=== PATIENT | female | born 1970 | race Caucasian/White ===

== ENCOUNTER 2018-08-12 20:18 | Inpatient (IN) ==
--- NOTE | 2018-08-12 21:57 | ED ---
HPI General Chief complaint: Fall Stated complaint: fall 3 weeks ago-weakness Time Seen by Provider: 08/12/18 21:26 History of Present Illness HPI narrative: 48-year-old female with a history of alcohol abuse presents to the emergency department for evaluation of headache, neck pain, paresthesias and weakness s/p fall 3 weeks ago. Much of the history is provided by the patient's because the patient states that her memory has declined over the past several weeks. The patient's states that 3 weeks ago the patient called him and told him that she tripped over the dog in the backyard and fell hitting the back of her head on the ground, which was grasped. He states that at the time she told him that she had some soreness in her back but otherwise was okay. He states that since then she has started complaining of pain in the back of her head and neck and over the past 2 weeks has started having weakness and paresthesias. He states that for the past 2 weeks she has had difficulty getting up off of the couch due to weakness in her legs, states that he has been picking her up and taking her to the bathroom. The patient is complaining of pain in her head and neck. She is also complaining of paresthesias from the elbows to fingertips bilaterally and from below her knees to her toes bilaterally. States that she has nausea but no vomiting. Denies any fever, chills, chest pain, shortness of breath, abdominal pain, vomiting, diarrhea, cough or cold symptoms, bowel or bladder incontinence. Patient admits to drinking 3 large vodka drinks daily. Denies any drug use. No other complaints. Related Data Home Medications Medication Instructions Recorded Confirmed lisinopril 20 mg PO DAILY 08/12/18 08/12/18 Allergies Allergy/AdvReac Type Severity Reaction Status Date / Time acetaminophen Allergy Severe Rash Verified 08/12/18 21:13 doxycycline Allergy Severe Rash Verified 08/12/18 21:13 minocycline Allergy Severe Rash Verified 08/12/18 21:13 morphine Allergy Severe HIVES Verified 08/12/18 21:13 ondansetron Allergy Severe HIVES Verified 08/12/18 21:13 penicillin G Allergy Severe Rash Verified 08/12/18 21:13 propoxyphene Allergy Severe Rash Verified 08/12/18 21:13 tigecycline Allergy Severe Rash Verified 08/12/18 21:13 Sulfa (Sulfonamide Allergy Unknown Nausea/Vomi Verified 08/12/18 21:13 Antibiotics) ting gadobutrol [From Gadavist] Allergy Hives Verified 08/13/18 12:20 Review of Systems ROS: all other systems reviewed are negative [facility] Family History Family History Mother Cancer Father Diabetes Social History Social History Substance History: Active Abuse Second Hand Smoke Exposure: No Smoking Status: Never smoker How Often Do You Have a Drink Containing Alcohol: 4 or more times a week Recent Travel in [facility] within the Last 8 Weeks: No Recent Out of Country Travel within the Last 8 Weeks: No Substance Abuse Detail Alcohol: Substance Use Status: Active Route Used Substance Abuse: By Mouth Substance Frequency: 1/2 gallon every couple days Substance Abuse Comment: for pain control Immunization History Tetanus Immunization: <5 Years Exam Narrative Exam Narrative: GENERAL: Well-nourished and well-developed female patient in no acute distress, tearful and anxious. SKIN: Warm and dry without any obvious rashes or lesions. HEAD: Normocephalic and atraumatic. EYES: No injection, drainage, or hyphema noted. PERRLA. EOMI. ENT: No nasal drainage noted. Oropharynx is clear. NECK: Supple and the trachea is midline. CARDIOVASCULAR: Regular rate and rhythm. RESPIRATORY: Breath sounds are equal bilaterally with no accessory muscle use, wheezing, rhonchi, or crackles. GASTROINTESTINAL: Abdomen is soft, non-tender, and nondistended. RECTAL EXAM: External hemorrhoids noted. No masses or tenderness. No stool in the rectal vault. Normal rectal tone. Performed in the presence of Katina CROWE. MUSCULOSKELETAL: No obvious deformities, swelling, cyanosis, or ecchymosis is present throughout the upper and lower extremities. Patient has full range of motion without any signs of neurovascular compromise. Distal pulses are 2+ throughout. Patient strength 4/5 upper and lower extremities and equal throughout. BACK: Nontender without any obvious deformities, bony point tenderness, or crepitus noted throughout the thoracic and lumbar vertebrae. NEUROLOGICAL: Awake, alert, and oriented to person and place only. Normal speech. Cranial nerves are grossly intact. Course Initial Documented Vital Signs Temperature 98.4 F 08/12/18 20:51 Pulse Rate 119 H 08/12/18 20:51 Respiratory Rate 16 08/12/18 20:51 Blood Pressure 110/71 08/12/18 20:51 Pulse Oximetry 100 08/12/18 20:51 Last Documented Vital Signs Temperature 98.8 F 08/17/18 16:00 Pulse Rate 88 08/17/18 16:00 Respiratory Rate 18 08/17/18 16:00 Blood Pressure 135/86 08/17/18 16:00 Pulse Oximetry 99 08/17/18 16:00 Medical Decision Making CORINNA Attestation CORINNA supervised visit: Yes Attestation: I, Dr. Hayden, have reviewed the advance practice practitioner's documentation and am in agreement, met with the patient face to face, made the diagnosis, and the medical decision making was done by me. The patient was initially evaluated by Kathy, the CORINNA. Please see their complete history and physical. *My assessment and Findings: The patient presents with a history of generalized weakness, numbness and tingling in the arms and legs in a stocking and glove distribution that began a couple of weeks ago. During the course of the patient's emergency department visit, the patient's history, examination, and differential diagnosis were reviewed with the patient. The patient was placed on a fiscal assistant with oximetry and frequent blood pressure monitoring. The patient had IV access obtained and blood work sent for analysis. The patient's diagnostic studies were reviewed and remarkable for a white count of 12.4, hemoglobin 6.7 with Hemoccult negative stool on rectal exam, platelets 518 with a normal differential, PT 9.6, PTT 22.4, urinalysis shows no acute abnormality. CT scan of the brain showed no acute abnormality, CT scan of the C -spine showed no fracture or subluxation of the cervical spine, mild degenerative changes at C5-C6. The patient's case including history, pertinent physical examination findings, and laboratory studies were discussed with Dr. Miller. It was agreed that the patient would be admitted to the hospitalist service. The patient's results were discussed with the patient, including the plan of care. I explained that further testing and/ or monitoring is indicated based on the patient's history, examination, and/ or laboratory findings. Therefore, I recommended admission for additional evaluation. The patient expressed understanding and was agreeable with this plan. The patient was admitted to the hospital in guarded condition and sent to a bed under the care of the [facility] service. MDM Narrative Medical decision making narrative: 48-year-old female presents to the emergency department for evaluation of headache, neck pain, weakness and paresthesias status post trip and fall 3 weeks ago. Patient is afebrile. She is slightly tachycardic but otherwise vitals are unremarkable. IV access is obtained, labs of been drawn and sent. Patient is placed on cardiac telemetry and pulse oximetry monitoring. CBC shows hemoglobin 6.7, hematocrit 21.1. Platelet count is elevated at 518. White blood cell count is elevated 12.4. Coags unremarkable. Head CT is negative. CT of the cervical spine is negative. Urinalysis shows small occult blood but is otherwise unremarkable. TSH is elevated at 5.170. EtOH is elevated at 203. Urine tox is negative. CBC shows anemia, patient's reporting she had bright red blood in the toilet several times this week due to hemorrhoids. Denies any black stools. I did a [place] to try to perform hemaprompt however she had no stool in the rectal vault to test. She does have external hemorrhoids noted on exam. Patient will be administered 2 units prbcs. Patient will be admitted to hospitalist service. Medical Screen Exam Complete: Yes Emergency Medical Condition: Yes Differential Diagnosis Differential Diagnosis: Intracranial hemorrhage versus alcohol intoxication versus delirium versus electrolyte abnormality versus thiamine deficiency Lab Data Result diagrams: 08/15/18 06:17 08/17/18 05:33 Lab Results 08/12/18 08/12/18 08/12/18 Range/Units 21:53 21:53 21:53 WBC 12.4 H (4.0-11.0) th/mm3 Corrected WBC RBC 2.79 L (4.00-5.30) mil/mm3 Hgb 6.7 L* (11.6-15.3) gm/dL Hct 21.1 L (35.0-46.0) % MCV 75.6 L (80.0-100.0) fL MCH 24.1 L (27.0-34.0) pg MCHC 31.9 L (32.0-36.0) % RDW 21.0 H (11.6-17.2) % Plt Count 518 H (150-450) th/mm3 MPV 8.8 (7.0-11.0) fL Prelim Diff (Auto) Neut % (Auto) 55.0 (16.0-70.0) % Lymph % (Auto) 34.0 (9.0-44.0) % [place] % (Auto) 7.8 (0.0-8.0) % Eos % (Auto) 1.9 (0.0-4.0) % Baso % (Auto) 1.3 (0.0-2.0) % Neut # (Auto) 6.8 (1.8-7.7) th/mm3 Lymph # (Auto) 4.2 (1.0-4.8) th/mm3 [place] # (Auto) 1.0 H (0.0-0.9) th/mm3 Eos # (Auto) 0.2 (0.0-0.4) th/mm3 Baso # (Auto) 0.2 (0.0-0.2) th/mm3 WBC Differential . Differential Comment Auto diff final ESR (0-20) mm/hr Hematology Comments PT 9.6 L (9.8-11.6) sec INR 0.9 Ratio APTT 22.4 L (23.4-31.7) sec Sodium (136-145) meq/L Potassium (3.5-5.1) meq/L Chloride (98-107) meq/L Carbon Dioxide (21.0-32.0) meq/L Anion Gap (5-15) meq/L BUN (7-18) mg/dL Creatinine (0.50-1.00) mg/dL Estimated GFR (>89) mL/min Random Glucose (74-106) mg/dL Calcium (8.5-10.1) mg/dL Phosphorus (2.5-4.9) mg/dL Magnesium (1.5-2.5) mg/dL Iron (50-170) mcg/dL TIBC (250-450) mcg/dL % Saturation (20-50) % Ferritin (8-252) ng/mL Total Bilirubin (0.2-1.0) mg/dL AST (15-37) U/L ALT (10-53) U/L Alkaline Phosphatase (45-117) U/L Ammonia (11-32) mcmol/L Total Creatine Kinase (26-192) U/L Troponin I (0.02-0.05) ng/mL Total Protein (6.4-8.2) g/dL Total Protein (PEP) (6.4-8.2) gm/dL Albumin (3.4-5.0) g/dL Albumin (PEP) (3.50-5.00) gm/dL Albumin/Globulin Ratio (1.39-2.23) Dbpat-1-Vidxgvket (0.11-0.29) gm/dL Wnfgw-1-Knrqqowae (0.22-1.00) gm/dL Beta Globulins (0.53-1.03) gm/dL Gamma Globulins (0.50-1.39) gm/dL PEP Pathologist Comment Ceruloplasmin (18-53) mg/dL Thiamine (70-180) nmol/L Vitamin B12 (193-986) pg/mL Methylmalonic Acid (<=0.40) nmol/mL Folate (3.1-17.5) ng/mL TSH 5.170 H (0.358-3.740) uIU/mL Free T4 (0.76-1.46) ng/dL Beta HCG, Quant (0-5) mIU/mL Urine Color (Yellw/Straw) Urine Clarity (Clear) Urine pH (5.0-8.5) Ur Specific [place] (1.002-1.035) Urine Protein (Neg-Trace) mg/dL Urine Glucose (UA) (Negative) mg/dL Urine Ketones (Negative) mg/dL Urine Occult Blood (Negative) Urine Nitrate (Negative) Urine Bilirubin (Negative) Urine Urobilinogen (Less than 2) mg/dL Ur Leukocyte Esterase (Negative) Urine RBC (0-3) /hpf Urine WBC (0-5) /hpf Ur Squamous Epith Cells (0-5) /hpf Urine Bacteria (None) /hpf Micro UA Comment Ur Microscopic Review Urine Culture Comments CSF Volume (1) mL CSF Supernat Color (1) (Clear) CSF Gross Blood (1) (0) CSF WBC (1) (0-10) /mm3 CSF RBC (1) (None) /mm3 CSF Volume (2) mL CSF Supernat Color (2) (Clear) CSF Gross Blood (2) (0) CSF Volume (3) mL CSF Supernat Color (3) (Clear) CSF Gross Blood (3) (0) CSF Volume (4) mL CSF Supernat Color (4) (Clear) CSF Gross Blood (4) (0) CSF Neutrophils % % CSF Lymphocytes % % CSF Monocytes % % CSF Histiocytes % CSF Total Protein (15.0-45.0) mg/dL CSF VDRL CSF Lyme IgG Bands Det CSF Lyme IgM Bands Det CSF Lyme Disease DNA (Not Detecte) CSF Cryptococcus Ag (Negative) CSF Herpes I DNA (PCR) (Negative) CSF Herpes II DNA (PCR) (Negative) Urine Opiates Screen (Neg) Ur Barbiturates Screen (Neg) Ur Amphetamines Screen (Neg) U Benzodiazepines Scrn (Neg) Urine Cocaine Screen (Neg) U Cannabinoids Screen (Neg) Serum Alcohol 203 H (0-5) mg/dL Zinc (60-130) mcg/dL IgG (670-1640) mg/dL IgA (78-430) mg/dL IgM (55-338) mg/dL IgE (<= 214) kU/L Rheumatoid Factor Scrn (Negative) Rheumatoid Factor Titer CHAVEZ Screen (Neg) RPR (Nonreactive) Hepatitis A IgM Ab (Nonreactive) Hep Bs Antigen (Nonreactive) Hep B Core IgM Ab (Nonreactive) Hep C IgG Ab (Nonreactive) HIV 1&2 Ab/P24 Ag 4thGn (Nonreactive) M. pneumoniae Interp Mycoplasma pneumon IgG (Negative) Mycoplasma pneumon IgM (Negative) Blood Type Blood Type Recheck Antibody Screen MTS Gel Crossmatch 08/12/18 08/12/18 08/12/18 Range/Units 21:53 21:53 21:53 WBC (4.0-11.0) th/mm3 Corrected WBC RBC (4.00-5.30) mil/mm3 Hgb (11.6-15.3) gm/dL Hct (35.0-46.0) % MCV (80.0-100.0) fL MCH (27.0-34.0) pg MCHC (32.0-36.0) % RDW (11.6-17.2) % Plt Count (150-450) th/mm3 MPV (7.0-11.0) fL Prelim Diff (Auto) Neut % (Auto) (16.0-70.0) % Lymph % (Auto) (9.0-44.0) % [place] % (Auto) (0.0-8.0) % Eos % (Auto) (0.0-4.0) % Baso % (Auto) (0.0-2.0) % Neut # (Auto) (1.8-7.7) th/mm3 Lymph # (Auto) (1.0-4.8) th/mm3 [place] # (Auto) (0.0-0.9) th/mm3 Eos # (Auto) (0.0-0.4) th/mm3 Baso # (Auto) (0.0-0.2) th/mm3 WBC Differential Differential Comment ESR (0-20) mm/hr Hematology Comments PT (9.8-11.6) sec INR Ratio APTT (23.4-31.7) sec Sodium 141 (136-145) meq/L Potassium 3.5 (3.5-5.1) meq/L Chloride 106 (98-107) meq/L Carbon Dioxide 21.8 (21.0-32.0) meq/L Anion Gap 13 (5-15) meq/L BUN 13 (7-18) mg/dL Creatinine 0.77 (0.50-1.00) mg/dL Estimated GFR 80 L (>89) mL/min Random Glucose 100 (74-106) mg/dL Calcium 8.9 (8.5-10.1) mg/dL Phosphorus (2.5-4.9) mg/dL Magnesium 2.0 (1.5-2.5) mg/dL Iron 11 L (50-170) mcg/dL TIBC 643 H (250-450) mcg/dL % Saturation 1.7 L (20-50) % Ferritin 8 (8-252) ng/mL Total Bilirubin 0.2 (0.2-1.0) mg/dL AST 15 (15-37) U/L ALT 19 (10-53) U/L Alkaline Phosphatase 106 (45-117) U/L Ammonia (11-32) mcmol/L Total Creatine Kinase (26-192) U/L Troponin I Less than 0.02 L (0.02-0.05) ng/mL Total Protein 8.1 (6.4-8.2) g/dL Total Protein (PEP) (6.4-8.2) gm/dL Albumin 3.8 (3.4-5.0) g/dL Albumin (PEP) (3.50-5.00) gm/dL Albumin/Globulin Ratio (1.39-2.23) Clxem-5-Ldmpfthwy (0.11-0.29) gm/dL Tknsm-6-Wynowemuh (0.22-1.00) gm/dL Beta Globulins (0.53-1.03) gm/dL Gamma Globulins (0.50-1.39) gm/dL PEP Pathologist Comment Ceruloplasmin (18-53) mg/dL Thiamine (70-180) nmol/L Vitamin B12 395 (193-986) pg/mL Methylmalonic Acid (<=0.40) nmol/mL Folate (3.1-17.5) ng/mL TSH (0.358-3.740) uIU/mL Free T4 (0.76-1.46) ng/dL Beta HCG, Quant (0-5) mIU/mL Urine Color (Yellw/Straw) Urine Clarity (Clear) Urine pH (5.0-8.5) Ur Specific [place] (1.002-1.035) Urine Protein (Neg-Trace) mg/dL Urine Glucose (UA) (Negative) mg/dL Urine Ketones (Negative) mg/dL Urine Occult Blood (Negative) Urine Nitrate (Negative) Urine Bilirubin (Negative) Urine Urobilinogen (Less than 2) mg/dL Ur Leukocyte Esterase (Negative) Urine RBC (0-3) /hpf Urine WBC (0-5) /hpf Ur Squamous Epith Cells (0-5) /hpf Urine Bacteria (None) /hpf Micro UA Comment Ur Microscopic Review Urine Culture Comments CSF Volume (1) mL CSF Supernat Color (1) (Clear) CSF Gross Blood (1) (0) CSF WBC (1) (0-10) /mm3 CSF RBC (1) (None) /mm3 CSF Volume (2) mL CSF Supernat Color (2) (Clear) CSF Gross Blood (2) (0) CSF Volume (3) mL CSF Supernat Color (3) (Clear) CSF Gross Blood (3) (0) CSF Volume (4) mL CSF Supernat Color (4) (Clear) CSF Gross Blood (4) (0) CSF Neutrophils % % CSF Lymphocytes % % CSF Monocytes % % CSF Histiocytes % CSF Total Protein (15.0-45.0) mg/dL CSF VDRL CSF Lyme IgG Bands Det CSF Lyme IgM Bands Det CSF Lyme Disease DNA (Not Detecte) CSF Cryptococcus Ag (Negative) CSF Herpes I DNA (PCR) (Negative) CSF Herpes II DNA (PCR) (Negative) Urine Opiates Screen (Neg) Ur Barbiturates Screen (Neg) Ur Amphetamines Screen (Neg) U Benzodiazepines Scrn (Neg) Urine Cocaine Screen (Neg) U Cannabinoids Screen (Neg) Serum Alcohol (0-5) mg/dL Zinc (60-130) mcg/dL IgG (670-1640) mg/dL IgA (78-430) mg/dL IgM (55-338) mg/dL IgE (<= 214) kU/L Rheumatoid Factor Scrn (Negative) Rheumatoid Factor Titer CHAVEZ Screen (Neg) RPR (Nonreactive) Hepatitis A IgM Ab (Nonreactive) Hep Bs Antigen (Nonreactive) Hep B Core IgM Ab (Nonreactive) Hep C IgG Ab (Nonreactive) HIV 1&2 Ab/P24 Ag 4thGn (Nonreactive) M. pneumoniae Interp Mycoplasma pneumon IgG (Negative) Mycoplasma pneumon IgM (Negative) Blood Type Blood Type Recheck Antibody Screen MTS Gel Crossmatch 08/12/18 08/12/18 08/12/18 Range/Units 22:13 22:13 22:27 WBC (4.0-11.0) th/mm3 Corrected WBC RBC (4.00-5.30) mil/mm3 Hgb (11.6-15.3) gm/dL Hct (35.0-46.0) % MCV (80.0-100.0) fL MCH (27.0-34.0) pg MCHC (32.0-36.0) % RDW (11.6-17.2) % Plt Count (150-450) th/mm3 MPV (7.0-11.0) fL Prelim Diff (Auto) Neut % (Auto) (16.0-70.0) % Lymph % (Auto) (9.0-44.0) % [place] % (Auto) (0.0-8.0) % Eos % (Auto) (0.0-4.0) % Baso % (Auto) (0.0-2.0) % Neut # (Auto) (1.8-7.7) th/mm3 Lymph # (Auto) (1.0-4.8) th/mm3 [place] # (Auto) (0.0-0.9) th/mm3 Eos # (Auto) (0.0-0.4) th/mm3 Baso # (Auto) (0.0-0.2) th/mm3 WBC Differential Differential Comment ESR (0-20) mm/hr Hematology Comments PT (9.8-11.6) sec INR Ratio APTT (23.4-31.7) sec Sodium (136-145) meq/L Potassium (3.5-5.1) meq/L Chloride (98-107) meq/L Carbon Dioxide (21.0-32.0) meq/L Anion Gap (5-15) meq/L BUN (7-18) mg/dL Creatinine (0.50-1.00) mg/dL Estimated GFR (>89) mL/min Random Glucose (74-106) mg/dL Calcium (8.5-10.1) mg/dL Phosphorus (2.5-4.9) mg/dL Magnesium (1.5-2.5) mg/dL Iron (50-170) mcg/dL TIBC (250-450) mcg/dL % Saturation (20-50) % Ferritin (8-252) ng/mL Total Bilirubin (0.2-1.0) mg/dL AST (15-37) U/L ALT (10-53) U/L Alkaline Phosphatase (45-117) U/L Ammonia (11-32) mcmol/L Total Creatine Kinase (26-192) U/L Troponin I (0.02-0.05) ng/mL Total Protein (6.4-8.2) g/dL Total Protein (PEP) (6.4-8.2) gm/dL Albumin (3.4-5.0) g/dL Albumin (PEP) (3.50-5.00) gm/dL Albumin/Globulin Ratio (1.39-2.23) Zawpq-6-Hzwnsbhjj (0.11-0.29) gm/dL Hvnlw-1-Vsvhaypwf (0.22-1.00) gm/dL Beta Globulins (0.53-1.03) gm/dL Gamma Globulins (0.50-1.39) gm/dL PEP Pathologist Comment Ceruloplasmin (18-53) mg/dL Thiamine (70-180) nmol/L Vitamin B12 (193-986) pg/mL Methylmalonic Acid (<=0.40) nmol/mL Folate (3.1-17.5) ng/mL TSH (0.358-3.740) uIU/mL Free T4 (0.76-1.46) ng/dL Beta HCG, Quant (0-5) mIU/mL Urine Color Straw (Yellw/Straw) Urine Clarity Clear (Clear) Urine pH 7.0 (5.0-8.5) Ur Specific [place] 1.004 (1.002-1.035) Urine Protein Negative (Neg-Trace) mg/dL Urine Glucose (UA) Negative (Negative) mg/dL Urine Ketones Negative (Negative) mg/dL Urine Occult Blood Small H (Negative) Urine Nitrate Negative (Negative) Urine Bilirubin Negative (Negative) Urine Urobilinogen Less than 2 (Less than 2) mg/dL Ur Leukocyte Esterase Negative (Negative) Urine RBC 1 (0-3) /hpf Urine WBC 2 (0-5) /hpf Ur Squamous Epith Cells 1 (0-5) /hpf Urine Bacteria (None) /hpf Micro UA Comment Culture not ind Ur Microscopic Review Not Reportable Urine Culture Comments Culture not ind CSF Volume (1) mL CSF Supernat Color (1) (Clear) CSF Gross Blood (1) (0) CSF WBC (1) (0-10) /mm3 CSF RBC (1) (None) /mm3 CSF Volume (2) mL CSF Supernat Color (2) (Clear) CSF Gross Blood (2) (0) CSF Volume (3) mL CSF Supernat Color (3) (Clear) CSF Gross Blood (3) (0) CSF Volume (4) mL CSF Supernat Color (4) (Clear) CSF Gross Blood (4) (0) CSF Neutrophils % % CSF Lymphocytes % % CSF Monocytes % % CSF Histiocytes % CSF Total Protein (15.0-45.0) mg/dL CSF VDRL CSF Lyme IgG Bands Det CSF Lyme IgM Bands Det CSF Lyme Disease DNA (Not Detecte) CSF Cryptococcus Ag (Negative) CSF Herpes I DNA (PCR) (Negative) CSF Herpes II DNA (PCR) (Negative) Urine Opiates Screen Neg (Neg) Ur Barbiturates Screen Neg (Neg) Ur Amphetamines Screen Neg (Neg) U Benzodiazepines Scrn Neg (Neg) Urine Cocaine Screen Neg (Neg) U Cannabinoids Screen Neg (Neg) Serum Alcohol (0-5) mg/dL Zinc (60-130) mcg/dL IgG (670-1640) mg/dL IgA (78-430) mg/dL IgM (55-338) mg/dL IgE (<= 214) kU/L Rheumatoid Factor Scrn (Negative) Rheumatoid Factor Titer CHAVEZ Screen (Neg) RPR (Nonreactive) Hepatitis A IgM Ab (Nonreactive) Hep Bs Antigen (Nonreactive) Hep B Core IgM Ab (Nonreactive) Hep C IgG Ab (Nonreactive) HIV 1&2 Ab/P24 Ag 4thGn (Nonreactive) M. pneumoniae Interp Mycoplasma pneumon IgG (Negative) Mycoplasma pneumon IgM (Negative) Blood Type O Positive Blood Type Recheck Not needed Antibody Screen Negative MTS Gel Crossmatch 08/12/18 08/13/18 08/13/18 Range/Units 22:27 07:51 07:51 WBC (4.0-11.0) th/mm3 Corrected WBC RBC (4.00-5.30) mil/mm3 Hgb 10.2 L D (11.6-15.3) gm/dL Hct (35.0-46.0) % MCV (80.0-100.0) fL MCH (27.0-34.0) pg MCHC (32.0-36.0) % RDW (11.6-17.2) % Plt Count (150-450) th/mm3 MPV (7.0-11.0) fL Prelim Diff (Auto) Neut % (Auto) (16.0-70.0) % Lymph % (Auto) (9.0-44.0) % [place] % (Auto) (0.0-8.0) % Eos % (Auto) (0.0-4.0) % Baso % (Auto) (0.0-2.0) % Neut # (Auto) (1.8-7.7) th/mm3 Lymph # (Auto) (1.0-4.8) th/mm3 [place] # (Auto) (0.0-0.9) th/mm3 Eos # (Auto) (0.0-0.4) th/mm3 Baso # (Auto) (0.0-0.2) th/mm3 WBC Differential Differential Comment ESR 25 H (0-20) mm/hr Hematology Comments PT (9.8-11.6) sec INR Ratio APTT (23.4-31.7) sec Sodium (136-145) meq/L Potassium (3.5-5.1) meq/L Chloride (98-107) meq/L Carbon Dioxide (21.0-32.0) meq/L Anion Gap (5-15) meq/L BUN (7-18) mg/dL Creatinine (0.50-1.00) mg/dL Estimated GFR (>89) mL/min Random Glucose (74-106) mg/dL Calcium (8.5-10.1) mg/dL Phosphorus (2.5-4.9) mg/dL Magnesium (1.5-2.5) mg/dL Iron (50-170) mcg/dL TIBC (250-450) mcg/dL % Saturation (20-50) % Ferritin (8-252) ng/mL Total Bilirubin (0.2-1.0) mg/dL AST (15-37) U/L ALT (10-53) U/L Alkaline Phosphatase (45-117) U/L Ammonia (11-32) mcmol/L Total Creatine Kinase (26-192) U/L Troponin I (0.02-0.05) ng/mL Total Protein (6.4-8.2) g/dL Total Protein (PEP) (6.4-8.2) gm/dL Albumin (3.4-5.0) g/dL Albumin (PEP) (3.50-5.00) gm/dL Albumin/Globulin Ratio (1.39-2.23) Endhi-5-Hyqpdbdmp (0.11-0.29) gm/dL Pjpgi-5-Fyfoylcfa (0.22-1.00) gm/dL Beta Globulins (0.53-1.03) gm/dL Gamma Globulins (0.50-1.39) gm/dL PEP Pathologist Comment Ceruloplasmin (18-53) mg/dL Thiamine (70-180) nmol/L Vitamin B12 (193-986) pg/mL Methylmalonic Acid (<=0.40) nmol/mL Folate (3.1-17.5) ng/mL TSH (0.358-3.740) uIU/mL Free T4 (0.76-1.46) ng/dL Beta HCG, Quant (0-5) mIU/mL Urine Color (Yellw/Straw) Urine Clarity (Clear) Urine pH (5.0-8.5) Ur Specific [place] (1.002-1.035) Urine Protein (Neg-Trace) mg/dL Urine Glucose (UA) (Negative) mg/dL Urine Ketones (Negative) mg/dL Urine Occult Blood (Negative) Urine Nitrate (Negative) Urine Bilirubin (Negative) Urine Urobilinogen (Less than 2) mg/dL Ur Leukocyte Esterase (Negative) Urine RBC (0-3) /hpf Urine WBC (0-5) /hpf Ur Squamous Epith Cells (0-5) /hpf Urine Bacteria (None) /hpf Micro UA Comment Ur Microscopic Review Urine Culture Comments CSF Volume (1) mL CSF Supernat Color (1) (Clear) CSF Gross Blood (1) (0) CSF WBC (1) (0-10) /mm3 CSF RBC (1) (None) /mm3 CSF Volume (2) mL CSF Supernat Color (2) (Clear) CSF Gross Blood (2) (0) CSF Volume (3) mL CSF Supernat Color (3) (Clear) CSF Gross Blood (3) (0) CSF Volume (4) mL CSF Supernat Color (4) (Clear) CSF Gross Blood (4) (0) CSF Neutrophils % % CSF Lymphocytes % % CSF Monocytes % % CSF Histiocytes % CSF Total Protein (15.0-45.0) mg/dL CSF VDRL CSF Lyme IgG Bands Det CSF Lyme IgM Bands Det CSF Lyme Disease DNA (Not Detecte) CSF Cryptococcus Ag (Negative) CSF Herpes I DNA (PCR) (Negative) CSF Herpes II DNA (PCR) (Negative) Urine Opiates Screen (Neg) Ur Barbiturates Screen (Neg) Ur Amphetamines Screen (Neg) U Benzodiazepines Scrn (Neg) Urine Cocaine Screen (Neg) U Cannabinoids Screen (Neg) Serum Alcohol (0-5) mg/dL Zinc (60-130) mcg/dL IgG (670-1640) mg/dL IgA (78-430) mg/dL IgM (55-338) mg/dL IgE (<= 214) kU/L Rheumatoid Factor Scrn (Negative) Rheumatoid Factor Titer CHAVEZ Screen (Neg) RPR (Nonreactive) Hepatitis A IgM Ab (Nonreactive) Hep Bs Antigen (Nonreactive) Hep B Core IgM Ab (Nonreactive) Hep C IgG Ab (Nonreactive) HIV 1&2 Ab/P24 Ag 4thGn (Nonreactive) M. pneumoniae Interp Mycoplasma pneumon IgG (Negative) Mycoplasma pneumon IgM (Negative) Blood Type Blood Type Recheck Antibody Screen MTS Gel Crossmatch See Detail 08/13/18 08/13/18 08/13/18 Range/Units 12:04 12:04 15:30 WBC (4.0-11.0) th/mm3 Corrected WBC RBC (4.00-5.30) mil/mm3 Hgb 10.2 L (11.6-15.3) gm/dL Hct (35.0-46.0) % MCV (80.0-100.0) fL MCH (27.0-34.0) pg MCHC (32.0-36.0) % RDW (11.6-17.2) % Plt Count (150-450) th/mm3 MPV (7.0-11.0) fL Prelim Diff (Auto) Neut % (Auto) (16.0-70.0) % Lymph % (Auto) (9.0-44.0) % [place] % (Auto) (0.0-8.0) % Eos % (Auto) (0.0-4.0) % Baso % (Auto) (0.0-2.0) % Neut # (Auto) (1.8-7.7) th/mm3 Lymph # (Auto) (1.0-4.8) th/mm3 [place] # (Auto) (0.0-0.9) th/mm3 Eos # (Auto) (0.0-0.4) th/mm3 Baso # (Auto) (0.0-0.2) th/mm3 WBC Differential Differential Comment ESR (0-20) mm/hr Hematology Comments PT (9.8-11.6) sec INR Ratio APTT (23.4-31.7) sec Sodium (136-145) meq/L Potassium (3.5-5.1) meq/L Chloride (98-107) meq/L Carbon Dioxide (21.0-32.0) meq/L Anion Gap (5-15) meq/L BUN (7-18) mg/dL Creatinine (0.50-1.00) mg/dL Estimated GFR (>89) mL/min Random Glucose (74-106) mg/dL Calcium (8.5-10.1) mg/dL Phosphorus (2.5-4.9) mg/dL Magnesium (1.5-2.5) mg/dL Iron (50-170) mcg/dL TIBC (250-450) mcg/dL % Saturation (20-50) % Ferritin (8-252) ng/mL Total Bilirubin (0.2-1.0) mg/dL AST (15-37) U/L ALT (10-53) U/L Alkaline Phosphatase (45-117) U/L Ammonia (11-32) mcmol/L Total Creatine Kinase (26-192) U/L Troponin I (0.02-0.05) ng/mL Total Protein (6.4-8.2) g/dL Total Protein (PEP) 7.5 (6.4-8.2) gm/dL Albumin (3.4-5.0) g/dL Albumin (PEP) 4.31 (3.50-5.00) gm/dL Albumin/Globulin Ratio 1.35 L (1.39-2.23) Tokcp-4-Pzictkwwc 0.26 (0.11-0.29) gm/dL Dtwkd-2-Ydenwlmld 1.01 H (0.22-1.00) gm/dL Beta Globulins 0.98 (0.53-1.03) gm/dL Gamma Globulins 0.95 (0.50-1.39) gm/dL PEP Pathologist Comment Ceruloplasmin (18-53) mg/dL Thiamine (70-180) nmol/L Vitamin B12 (193-986) pg/mL Methylmalonic Acid (<=0.40) nmol/mL Folate 15.7 (3.1-17.5) ng/mL TSH (0.358-3.740) uIU/mL Free T4 1.01 (0.76-1.46) ng/dL Beta HCG, Quant 2 (0-5) mIU/mL Urine Color (Yellw/Straw) Urine Clarity (Clear) Urine pH (5.0-8.5) Ur Specific [place] (1.002-1.035) Urine Protein (Neg-Trace) mg/dL Urine Glucose (UA) (Negative) mg/dL Urine Ketones (Negative) mg/dL Urine Occult Blood (Negative) Urine Nitrate (Negative) Urine Bilirubin (Negative) Urine Urobilinogen (Less than 2) mg/dL Ur Leukocyte Esterase (Negative) Urine RBC (0-3) /hpf Urine WBC (0-5) /hpf Ur Squamous Epith Cells (0-5) /hpf Urine Bacteria (None) /hpf Micro UA Comment Ur Microscopic Review Urine Culture Comments CSF Volume (1) mL CSF Supernat Color (1) (Clear) CSF Gross Blood (1) (0) CSF WBC (1) (0-10) /mm3 CSF RBC (1) (None) /mm3 CSF Volume (2) mL CSF Supernat Color (2) (Clear) CSF Gross Blood (2) (0) CSF Volume (3) mL CSF Supernat Color (3) (Clear) CSF Gross Blood (3) (0) CSF Volume (4) mL CSF Supernat Color (4) (Clear) CSF Gross Blood (4) (0) CSF Neutrophils % % CSF Lymphocytes % % CSF Monocytes % % CSF Histiocytes % CSF Total Protein (15.0-45.0) mg/dL CSF VDRL CSF Lyme IgG Bands Det CSF Lyme IgM Bands Det CSF Lyme Disease DNA (Not Detecte) CSF Cryptococcus Ag (Negative) CSF Herpes I DNA (PCR) (Negative) CSF Herpes II DNA (PCR) (Negative) Urine Opiates Screen (Neg) Ur Barbiturates Screen (Neg) Ur Amphetamines Screen (Neg) U Benzodiazepines Scrn (Neg) Urine Cocaine Screen (Neg) U Cannabinoids Screen (Neg) Serum Alcohol (0-5) mg/dL Zinc (60-130) mcg/dL IgG (670-1640) mg/dL IgA (78-430) mg/dL IgM (55-338) mg/dL IgE (<= 214) kU/L Rheumatoid Factor Scrn Negative (Negative) Rheumatoid Factor Titer Not Reportable CHAVEZ Screen Neg (Neg) RPR Nonreactive (Nonreactive) Hepatitis A IgM Ab (Nonreactive) Hep Bs Antigen (Nonreactive) Hep B Core IgM Ab (Nonreactive) Hep C IgG Ab (Nonreactive) HIV 1&2 Ab/P24 Ag 4thGn (Nonreactive) M. pneumoniae Interp Mycoplasma pneumon IgG (Negative) Mycoplasma pneumon IgM (Negative) Blood Type Blood Type Recheck Antibody Screen MTS Gel Crossmatch 08/13/18 08/14/18 08/14/18 Range/Units 23:16 09:28 09:28 WBC 11.7 H Cancelled (4.0-11.0) th/mm3 Corrected WBC Cancelled RBC 3.67 L Cancelled (4.00-5.30) mil/mm3 Hgb 9.8 L 9.7 L Cancelled (11.6-15.3) gm/dL Hct 30.0 L Cancelled (35.0-46.0) % MCV 81.9 D Cancelled (80.0-100.0) fL MCH 26.4 L Cancelled (27.0-34.0) pg MCHC 32.3 Cancelled (32.0-36.0) % RDW 20.7 H Cancelled (11.6-17.2) % Plt Count 453 H Cancelled (150-450) th/mm3 MPV 8.9 Cancelled (7.0-11.0) fL Prelim Diff (Auto) Neut % (Auto) 64.7 (16.0-70.0) % Lymph % (Auto) 24.1 (9.0-44.0) % [place] % (Auto) 10.3 H (0.0-8.0) % Eos % (Auto) 0.3 (0.0-4.0) % Baso % (Auto) 0.6 (0.0-2.0) % Neut # (Auto) 7.6 (1.8-7.7) th/mm3 Lymph # (Auto) 2.8 (1.0-4.8) th/mm3 [place] # (Auto) 1.2 H (0.0-0.9) th/mm3 Eos # (Auto) 0.0 (0.0-0.4) th/mm3 Baso # (Auto) 0.1 (0.0-0.2) th/mm3 WBC Differential . Differential Comment Auto diff final ESR (0-20) mm/hr Hematology Comments Cancelled PT (9.8-11.6) sec INR Ratio APTT (23.4-31.7) sec Sodium (136-145) meq/L Potassium (3.5-5.1) meq/L Chloride (98-107) meq/L Carbon Dioxide (21.0-32.0) meq/L Anion Gap (5-15) meq/L BUN (7-18) mg/dL Creatinine (0.50-1.00) mg/dL Estimated GFR (>89) mL/min Random Glucose (74-106) mg/dL Calcium (8.5-10.1) mg/dL Phosphorus (2.5-4.9) mg/dL Magnesium (1.5-2.5) mg/dL Iron (50-170) mcg/dL TIBC (250-450) mcg/dL % Saturation (20-50) % Ferritin (8-252) ng/mL Total Bilirubin (0.2-1.0) mg/dL AST (15-37) U/L ALT (10-53) U/L Alkaline Phosphatase (45-117) U/L Ammonia (11-32) mcmol/L Total Creatine Kinase (26-192) U/L Troponin I (0.02-0.05) ng/mL Total Protein (6.4-8.2) g/dL Total Protein (PEP) (6.4-8.2) gm/dL Albumin (3.4-5.0) g/dL Albumin (PEP) (3.50-5.00) gm/dL Albumin/Globulin Ratio (1.39-2.23) Pwckq-0-Svvlkypdt (0.11-0.29) gm/dL Detke-7-Wguxfepwz (0.22-1.00) gm/dL Beta Globulins (0.53-1.03) gm/dL Gamma Globulins (0.50-1.39) gm/dL PEP Pathologist Comment Ceruloplasmin (18-53) mg/dL Thiamine (70-180) nmol/L Vitamin B12 (193-986) pg/mL Methylmalonic Acid (<=0.40) nmol/mL Folate (3.1-17.5) ng/mL TSH (0.358-3.740) uIU/mL Free T4 (0.76-1.46) ng/dL Beta HCG, Quant (0-5) mIU/mL Urine Color (Yellw/Straw) Urine Clarity (Clear) Urine pH (5.0-8.5) Ur Specific [place] (1.002-1.035) Urine Protein (Neg-Trace) mg/dL Urine Glucose (UA) (Negative) mg/dL Urine Ketones (Negative) mg/dL Urine Occult Blood (Negative) Urine Nitrate (Negative) Urine Bilirubin (Negative) Urine Urobilinogen (Less than 2) mg/dL Ur Leukocyte Esterase (Negative) Urine RBC (0-3) /hpf Urine WBC (0-5) /hpf Ur Squamous Epith Cells (0-5) /hpf Urine Bacteria (None) /hpf Micro UA Comment Ur Microscopic Review Urine Culture Comments CSF Volume (1) mL CSF Supernat Color (1) (Clear) CSF Gross Blood (1) (0) CSF WBC (1) (0-10) /mm3 CSF RBC (1) (None) /mm3 CSF Volume (2) mL CSF Supernat Color (2) (Clear) CSF Gross Blood (2) (0) CSF Volume (3) mL CSF Supernat Color (3) (Clear) CSF Gross Blood (3) (0) CSF Volume (4) mL CSF Supernat Color (4) (Clear) CSF Gross Blood (4) (0) CSF Neutrophils % % CSF Lymphocytes % % CSF Monocytes % % CSF Histiocytes % CSF Total Protein (15.0-45.0) mg/dL CSF VDRL CSF Lyme IgG Bands Det CSF Lyme IgM Bands Det CSF Lyme Disease DNA (Not Detecte) CSF Cryptococcus Ag (Negative) CSF Herpes I DNA (PCR) (Negative) CSF Herpes II DNA (PCR) (Negative) Urine Opiates Screen (Neg) Ur Barbiturates Screen (Neg) Ur Amphetamines Screen (Neg) U Benzodiazepines Scrn (Neg) Urine Cocaine Screen (Neg) U Cannabinoids Screen (Neg) Serum Alcohol (0-5) mg/dL Zinc (60-130) mcg/dL IgG (670-1640) mg/dL IgA (78-430) mg/dL IgM (55-338) mg/dL IgE (<= 214) kU/L Rheumatoid Factor Scrn (Negative) Rheumatoid Factor Titer CHAVEZ Screen (Neg) RPR (Nonreactive) Hepatitis A IgM Ab (Nonreactive) Hep Bs Antigen (Nonreactive) Hep B Core IgM Ab (Nonreactive) Hep C IgG Ab (Nonreactive) HIV 1&2 Ab/P24 Ag 4thGn (Nonreactive) M. pneumoniae Interp Mycoplasma pneumon IgG (Negative) Mycoplasma pneumon IgM (Negative) Blood Type Blood Type Recheck Antibody Screen MTS Gel Crossmatch 08/14/18 08/14/18 08/14/18 Range/Units 09:34 09:34 09:34 WBC (4.0-11.0) th/mm3 Corrected WBC RBC (4.00-5.30) mil/mm3 Hgb (11.6-15.3) gm/dL Hct (35.0-46.0) % MCV (80.0-100.0) fL MCH (27.0-34.0) pg MCHC (32.0-36.0) % RDW (11.6-17.2) % Plt Count (150-450) th/mm3 MPV (7.0-11.0) fL Prelim Diff (Auto) Neut % (Auto) (16.0-70.0) % Lymph % (Auto) (9.0-44.0) % [place] % (Auto) (0.0-8.0) % Eos % (Auto) (0.0-4.0) % Baso % (Auto) (0.0-2.0) % Neut # (Auto) (1.8-7.7) th/mm3 Lymph # (Auto) (1.0-4.8) th/mm3 [place] # (Auto) (0.0-0.9) th/mm3 Eos # (Auto) (0.0-0.4) th/mm3 Baso # (Auto) (0.0-0.2) th/mm3 WBC Differential Differential Comment ESR (0-20) mm/hr Hematology Comments PT (9.8-11.6) sec INR Ratio APTT (23.4-31.7) sec Sodium 144 (136-145) meq/L Potassium 3.2 L (3.5-5.1) meq/L Chloride 107 (98-107) meq/L Carbon Dioxide 25.6 (21.0-32.0) meq/L Anion Gap 11 (5-15) meq/L BUN 8 (7-18) mg/dL Creatinine 0.68 (0.50-1.00) mg/dL Estimated GFR Greater than 89 (>89) mL/min Random Glucose 77 (74-106) mg/dL Calcium 9.3 (8.5-10.1) mg/dL Phosphorus 3.1 (2.5-4.9) mg/dL Magnesium 1.9 (1.5-2.5) mg/dL Iron (50-170) mcg/dL TIBC (250-450) mcg/dL % Saturation (20-50) % Ferritin (8-252) ng/mL Total Bilirubin 0.6 (0.2-1.0) mg/dL AST 13 L (15-37) U/L ALT 15 (10-53) U/L Alkaline Phosphatase 77 (45-117) U/L Ammonia (11-32) mcmol/L Total Creatine Kinase 29 32 (26-192) U/L Troponin I (0.02-0.05) ng/mL Total Protein 7.4 D (6.4-8.2) g/dL Total Protein (PEP) (6.4-8.2) gm/dL Albumin 3.7 (3.4-5.0) g/dL Albumin (PEP) (3.50-5.00) gm/dL Albumin/Globulin Ratio (1.39-2.23) Clbkl-0-Yzpjapmpw (0.11-0.29) gm/dL Igxee-5-Iwuclvirf (0.22-1.00) gm/dL Beta Globulins (0.53-1.03) gm/dL Gamma Globulins (0.50-1.39) gm/dL PEP Pathologist Comment Ceruloplasmin (18-53) mg/dL Thiamine (70-180) nmol/L Vitamin B12 (193-986) pg/mL Methylmalonic Acid (<=0.40) nmol/mL Folate (3.1-17.5) ng/mL TSH (0.358-3.740) uIU/mL Free T4 (0.76-1.46) ng/dL Beta HCG, Quant (0-5) mIU/mL Urine Color (Yellw/Straw) Urine Clarity (Clear) Urine pH (5.0-8.5) Ur Specific [place] (1.002-1.035) Urine Protein (Neg-Trace) mg/dL Urine Glucose (UA) (Negative) mg/dL Urine Ketones (Negative) mg/dL Urine Occult Blood (Negative) Urine Nitrate (Negative) Urine Bilirubin (Negative) Urine Urobilinogen (Less than 2) mg/dL Ur Leukocyte Esterase (Negative) Urine RBC (0-3) /hpf Urine WBC (0-5) /hpf Ur Squamous Epith Cells (0-5) /hpf Urine Bacteria (None) /hpf Micro UA Comment Ur Microscopic Review Urine Culture Comments CSF Volume (1) mL CSF Supernat Color (1) (Clear) CSF Gross Blood (1) (0) CSF WBC (1) (0-10) /mm3 CSF RBC (1) (None) /mm3 CSF Volume (2) mL CSF Supernat Color (2) (Clear) CSF Gross Blood (2) (0) CSF Volume (3) mL CSF Supernat Color (3) (Clear) CSF Gross Blood (3) (0) CSF Volume (4) mL CSF Supernat Color (4) (Clear) CSF Gross Blood (4) (0) CSF Neutrophils % % CSF Lymphocytes % % CSF Monocytes % % CSF Histiocytes % CSF Total Protein (15.0-45.0) mg/dL CSF VDRL CSF Lyme IgG Bands Det CSF Lyme IgM Bands Det CSF Lyme Disease DNA (Not Detecte) CSF Cryptococcus Ag (Negative) CSF Herpes I DNA (PCR) (Negative) CSF Herpes II DNA (PCR) (Negative) Urine Opiates Screen (Neg) Ur Barbiturates Screen (Neg) Ur Amphetamines Screen (Neg) U Benzodiazepines Scrn (Neg) Urine Cocaine Screen (Neg) U Cannabinoids Screen (Neg) Serum Alcohol (0-5) mg/dL Zinc 66 (60-130) mcg/dL IgG 859 (670-1640) mg/dL IgA 207 (78-430) mg/dL IgM 140 (55-338) mg/dL IgE (<= 214) kU/L Rheumatoid Factor Scrn (Negative) Rheumatoid Factor Titer CHAVEZ Screen (Neg) RPR (Nonreactive) Hepatitis A IgM Ab (Nonreactive) Hep Bs Antigen (Nonreactive) Hep B Core IgM Ab (Nonreactive) Hep C IgG Ab (Nonreactive) HIV 1&2 Ab/P24 Ag 4thGn (Nonreactive) M. pneumoniae Interp Mycoplasma pneumon IgG (Negative) Mycoplasma pneumon IgM (Negative) Blood Type Blood Type Recheck Antibody Screen MTS Gel Crossmatch 08/14/18 08/14/18 08/14/18 Range/Units 09:34 09:34 09:34 WBC (4.0-11.0) th/mm3 Corrected WBC RBC (4.00-5.30) mil/mm3 Hgb (11.6-15.3) gm/dL Hct (35.0-46.0) % MCV (80.0-100.0) fL MCH (27.0-34.0) pg MCHC (32.0-36.0) % RDW (11.6-17.2) % Plt Count (150-450) th/mm3 MPV (7.0-11.0) fL Prelim Diff (Auto) Neut % (Auto) (16.0-70.0) % Lymph % (Auto) (9.0-44.0) % [place] % (Auto) (0.0-8.0) % Eos % (Auto) (0.0-4.0) % Baso % (Auto) (0.0-2.0) % Neut # (Auto) (1.8-7.7) th/mm3 Lymph # (Auto) (1.0-4.8) th/mm3 [place] # (Auto) (0.0-0.9) th/mm3 Eos # (Auto) (0.0-0.4) th/mm3 Baso # (Auto) (0.0-0.2) th/mm3 WBC Differential Differential Comment ESR (0-20) mm/hr Hematology Comments PT (9.8-11.6) sec INR Ratio APTT (23.4-31.7) sec Sodium (136-145) meq/L Potassium (3.5-5.1) meq/L Chloride (98-107) meq/L Carbon Dioxide (21.0-32.0) meq/L Anion Gap (5-15) meq/L BUN (7-18) mg/dL Creatinine (0.50-1.00) mg/dL Estimated GFR (>89) mL/min Random Glucose (74-106) mg/dL Calcium (8.5-10.1) mg/dL Phosphorus (2.5-4.9) mg/dL Magnesium (1.5-2.5) mg/dL Iron (50-170) mcg/dL TIBC (250-450) mcg/dL % Saturation (20-50) % Ferritin (8-252) ng/mL Total Bilirubin (0.2-1.0) mg/dL AST (15-37) U/L ALT (10-53) U/L Alkaline Phosphatase (45-117) U/L Ammonia (11-32) mcmol/L Total Creatine Kinase (26-192) U/L Troponin I (0.02-0.05) ng/mL Total Protein (6.4-8.2) g/dL Total Protein (PEP) (6.4-8.2) gm/dL Albumin (3.4-5.0) g/dL Albumin (PEP) (3.50-5.00) gm/dL Albumin/Globulin Ratio (1.39-2.23) Sqbmm-3-Imvrnrhtf (0.11-0.29) gm/dL Jyzsw-1-Nwbifncui (0.22-1.00) gm/dL Beta Globulins (0.53-1.03) gm/dL Gamma Globulins (0.50-1.39) gm/dL PEP Pathologist Comment Ceruloplasmin (18-53) mg/dL Thiamine (70-180) nmol/L Vitamin B12 (193-986) pg/mL Methylmalonic Acid (<=0.40) nmol/mL Folate (3.1-17.5) ng/mL TSH (0.358-3.740) uIU/mL Free T4 (0.76-1.46) ng/dL Beta HCG, Quant (0-5) mIU/mL Urine Color (Yellw/Straw) Urine Clarity (Clear) Urine pH (5.0-8.5) Ur Specific [place] (1.002-1.035) Urine Protein (Neg-Trace) mg/dL Urine Glucose (UA) (Negative) mg/dL Urine Ketones (Negative) mg/dL Urine Occult Blood (Negative) Urine Nitrate (Negative) Urine Bilirubin (Negative) Urine Urobilinogen (Less than 2) mg/dL Ur Leukocyte Esterase (Negative) Urine RBC (0-3) /hpf Urine WBC (0-5) /hpf Ur Squamous Epith Cells (0-5) /hpf Urine Bacteria (None) /hpf Micro UA Comment Ur Microscopic Review Urine Culture Comments CSF Volume (1) mL CSF Supernat Color (1) (Clear) CSF Gross Blood (1) (0) CSF WBC (1) (0-10) /mm3 CSF RBC (1) (None) /mm3 CSF Volume (2) mL CSF Supernat Color (2) (Clear) CSF Gross Blood (2) (0) CSF Volume (3) mL CSF Supernat Color (3) (Clear) CSF Gross Blood (3) (0) CSF Volume (4) mL CSF Supernat Color (4) (Clear) CSF Gross Blood (4) (0) CSF Neutrophils % % CSF Lymphocytes % % CSF Monocytes % % CSF Histiocytes % CSF Total Protein (15.0-45.0) mg/dL CSF VDRL CSF Lyme IgG Bands Det CSF Lyme IgM Bands Det CSF Lyme Disease DNA (Not Detecte) CSF Cryptococcus Ag (Negative) CSF Herpes I DNA (PCR) (Negative) CSF Herpes II DNA (PCR) (Negative) Urine Opiates Screen (Neg) Ur Barbiturates Screen (Neg) Ur Amphetamines Screen (Neg) U Benzodiazepines Scrn (Neg) Urine Cocaine Screen (Neg) U Cannabinoids Screen (Neg) Serum Alcohol (0-5) mg/dL Zinc (60-130) mcg/dL IgG (670-1640) mg/dL IgA (78-430) mg/dL IgM (55-338) mg/dL IgE 310.0 H (<= 214) kU/L Rheumatoid Factor Scrn (Negative) Rheumatoid Factor Titer CHAVEZ Screen (Neg) RPR (Nonreactive) Hepatitis A IgM Ab (Nonreactive) Hep Bs Antigen (Nonreactive) Hep B Core IgM Ab (Nonreactive) Hep C IgG Ab (Nonreactive) HIV 1&2 Ab/P24 Ag 4thGn Nonreactive (Nonreactive) M. pneumoniae Interp . Mycoplasma pneumon IgG Positive (Negative) Mycoplasma pneumon IgM Negative (Negative) Blood Type Blood Type Recheck Antibody Screen MTS Gel Crossmatch 08/14/18 08/14/18 08/14/18 Range/Units 10:13 10:13 10:13 WBC (4.0-11.0) th/mm3 Corrected WBC RBC (4.00-5.30) mil/mm3 Hgb (11.6-15.3) gm/dL Hct (35.0-46.0) % MCV (80.0-100.0) fL MCH (27.0-34.0) pg MCHC (32.0-36.0) % RDW (11.6-17.2) % Plt Count (150-450) th/mm3 MPV (7.0-11.0) fL Prelim Diff (Auto) Neut % (Auto) (16.0-70.0) % Lymph % (Auto) (9.0-44.0) % [place] % (Auto) (0.0-8.0) % Eos % (Auto) (0.0-4.0) % Baso % (Auto) (0.0-2.0) % Neut # (Auto) (1.8-7.7) th/mm3 Lymph # (Auto) (1.0-4.8) th/mm3 [place] # (Auto) (0.0-0.9) th/mm3 Eos # (Auto) (0.0-0.4) th/mm3 Baso # (Auto) (0.0-0.2) th/mm3 WBC Differential Differential Comment ESR (0-20) mm/hr Hematology Comments PT (9.8-11.6) sec INR Ratio APTT (23.4-31.7) sec Sodium (136-145) meq/L Potassium (3.5-5.1) meq/L Chloride (98-107) meq/L Carbon Dioxide (21.0-32.0) meq/L Anion Gap (5-15) meq/L BUN (7-18) mg/dL Creatinine (0.50-1.00) mg/dL Estimated GFR (>89) mL/min Random Glucose (74-106) mg/dL Calcium (8.5-10.1) mg/dL Phosphorus (2.5-4.9) mg/dL Magnesium (1.5-2.5) mg/dL Iron (50-170) mcg/dL TIBC (250-450) mcg/dL % Saturation (20-50) % Ferritin (8-252) ng/mL Total Bilirubin (0.2-1.0) mg/dL AST (15-37) U/L ALT (10-53) U/L Alkaline Phosphatase (45-117) U/L Ammonia (11-32) mcmol/L Total Creatine Kinase (26-192) U/L Troponin I (0.02-0.05) ng/mL Total Protein (6.4-8.2) g/dL Total Protein (PEP) (6.4-8.2) gm/dL Albumin (3.4-5.0) g/dL Albumin (PEP) (3.50-5.00) gm/dL Albumin/Globulin Ratio (1.39-2.23) Wcbyh-3-Vrzxrjmkn (0.11-0.29) gm/dL Cdwuh-2-Mtidbsmnb (0.22-1.00) gm/dL Beta Globulins (0.53-1.03) gm/dL Gamma Globulins (0.50-1.39) gm/dL PEP Pathologist Comment Ceruloplasmin (18-53) mg/dL Thiamine (70-180) nmol/L Vitamin B12 (193-986) pg/mL Methylmalonic Acid (<=0.40) nmol/mL Folate (3.1-17.5) ng/mL TSH (0.358-3.740) uIU/mL Free T4 (0.76-1.46) ng/dL Beta HCG, Quant (0-5) mIU/mL Urine Color (Yellw/Straw) Urine Clarity (Clear) Urine pH (5.0-8.5) Ur Specific [place] (1.002-1.035) Urine Protein (Neg-Trace) mg/dL Urine Glucose (UA) (Negative) mg/dL Urine Ketones (Negative) mg/dL Urine Occult Blood (Negative) Urine Nitrate (Negative) Urine Bilirubin (Negative) Urine Urobilinogen (Less than 2) mg/dL Ur Leukocyte Esterase (Negative) Urine RBC (0-3) /hpf Urine WBC (0-5) /hpf Ur Squamous Epith Cells (0-5) /hpf Urine Bacteria (None) /hpf Micro UA Comment Ur Microscopic Review Urine Culture Comments CSF Volume (1) 1.8 mL CSF Supernat Color (1) Clear (Clear) CSF Gross Blood (1) Trace (0) CSF WBC (1) 44 H 30 H (0-10) /mm3 CSF RBC (1) 182 H 144 H (None) /mm3 CSF Volume (2) 1.0 mL CSF Supernat Color (2) Clear (Clear) CSF Gross Blood (2) Trace (0) CSF Volume (3) 1.5 mL CSF Supernat Color (3) Clear (Clear) CSF Gross Blood (3) Trace (0) CSF Volume (4) 1.0 mL CSF Supernat Color (4) Clear (Clear) CSF Gross Blood (4) Trace (0) CSF Neutrophils % 11 % CSF Lymphocytes % 55 % CSF Monocytes % 12 % CSF Histiocytes 22 % CSF Total Protein (15.0-45.0) mg/dL CSF VDRL CSF Lyme IgG Bands Det ND CSF Lyme IgM Bands Det ND CSF Lyme Disease DNA (Not Detecte) CSF Cryptococcus Ag (Negative) CSF Herpes I DNA (PCR) (Negative) CSF Herpes II DNA (PCR) (Negative) Urine Opiates Screen (Neg) Ur Barbiturates Screen (Neg) Ur Amphetamines Screen (Neg) U Benzodiazepines Scrn (Neg) Urine Cocaine Screen (Neg) U Cannabinoids Screen (Neg) Serum Alcohol (0-5) mg/dL Zinc (60-130) mcg/dL IgG (670-1640) mg/dL IgA (78-430) mg/dL IgM (55-338) mg/dL IgE (<= 214) kU/L Rheumatoid Factor Scrn (Negative) Rheumatoid Factor Titer CHAVEZ Screen (Neg) RPR (Nonreactive) Hepatitis A IgM Ab (Nonreactive) Hep Bs Antigen (Nonreactive) Hep B Core IgM Ab (Nonreactive) Hep C IgG Ab (Nonreactive) HIV 1&2 Ab/P24 Ag 4thGn (Nonreactive) M. pneumoniae Interp Mycoplasma pneumon IgG (Negative) Mycoplasma pneumon IgM (Negative) Blood Type Blood Type Recheck Antibody Screen MTS Gel Crossmatch 08/14/18 08/14/18 08/14/18 Range/Units 10:13 10:13 10:13 WBC (4.0-11.0) th/mm3 Corrected WBC RBC (4.00-5.30) mil/mm3 Hgb (11.6-15.3) gm/dL Hct (35.0-46.0) % MCV (80.0-100.0) fL MCH (27.0-34.0) pg MCHC (32.0-36.0) % RDW (11.6-17.2) % Plt Count (150-450) th/mm3 MPV (7.0-11.0) fL Prelim Diff (Auto) Neut % (Auto) (16.0-70.0) % Lymph % (Auto) (9.0-44.0) % [place] % (Auto) (0.0-8.0) % Eos % (Auto) (0.0-4.0) % Baso % (Auto) (0.0-2.0) % Neut # (Auto) (1.8-7.7) th/mm3 Lymph # (Auto) (1.0-4.8) th/mm3 [place] # (Auto) (0.0-0.9) th/mm3 Eos # (Auto) (0.0-0.4) th/mm3 Baso # (Auto) (0.0-0.2) th/mm3 WBC Differential Differential Comment ESR (0-20) mm/hr Hematology Comments PT (9.8-11.6) sec INR Ratio APTT (23.4-31.7) sec Sodium (136-145) meq/L Potassium (3.5-5.1) meq/L Chloride (98-107) meq/L Carbon Dioxide (21.0-32.0) meq/L Anion Gap (5-15) meq/L BUN (7-18) mg/dL Creatinine (0.50-1.00) mg/dL Estimated GFR (>89) mL/min Random Glucose (74-106) mg/dL Calcium (8.5-10.1) mg/dL Phosphorus (2.5-4.9) mg/dL Magnesium (1.5-2.5) mg/dL Iron (50-170) mcg/dL TIBC (250-450) mcg/dL % Saturation (20-50) % Ferritin (8-252) ng/mL Total Bilirubin (0.2-1.0) mg/dL AST (15-37) U/L ALT (10-53) U/L Alkaline Phosphatase (45-117) U/L Ammonia (11-32) mcmol/L Total Creatine Kinase (26-192) U/L Troponin I (0.02-0.05) ng/mL Total Protein (6.4-8.2) g/dL Total Protein (PEP) (6.4-8.2) gm/dL Albumin (3.4-5.0) g/dL Albumin (PEP) (3.50-5.00) gm/dL Albumin/Globulin Ratio (1.39-2.23) Oucxy-4-Nphvoxyyo (0.11-0.29) gm/dL Dpwtr-3-Geyfppzzj (0.22-1.00) gm/dL Beta Globulins (0.53-1.03) gm/dL Gamma Globulins (0.50-1.39) gm/dL PEP Pathologist Comment Ceruloplasmin (18-53) mg/dL Thiamine (70-180) nmol/L Vitamin B12 (193-986) pg/mL Methylmalonic Acid (<=0.40) nmol/mL Folate (3.1-17.5) ng/mL TSH (0.358-3.740) uIU/mL Free T4 (0.76-1.46) ng/dL Beta HCG, Quant (0-5) mIU/mL Urine Color (Yellw/Straw) Urine Clarity (Clear) Urine pH (5.0-8.5) Ur Specific [place] (1.002-1.035) Urine Protein (Neg-Trace) mg/dL Urine Glucose (UA) (Negative) mg/dL Urine Ketones (Negative) mg/dL Urine Occult Blood (Negative) Urine Nitrate (Negative) Urine Bilirubin (Negative) Urine Urobilinogen (Less than 2) mg/dL Ur Leukocyte Esterase (Negative) Urine RBC (0-3) /hpf Urine WBC (0-5) /hpf Ur Squamous Epith Cells (0-5) /hpf Urine Bacteria (None) /hpf Micro UA Comment Ur Microscopic Review Urine Culture Comments CSF Volume (1) mL CSF Supernat Color (1) (Clear) CSF Gross Blood (1) (0) CSF WBC (1) (0-10) /mm3 CSF RBC (1) (None) /mm3 CSF Volume (2) mL CSF Supernat Color (2) (Clear) CSF Gross Blood (2) (0) CSF Volume (3) mL CSF Supernat Color (3) (Clear) CSF Gross Blood (3) (0) CSF Volume (4) mL CSF Supernat Color (4) (Clear) CSF Gross Blood (4) (0) CSF Neutrophils % % CSF Lymphocytes % % CSF Monocytes % % CSF Histiocytes % CSF Total Protein (15.0-45.0) mg/dL CSF VDRL CSF Lyme IgG Bands Det CSF Lyme IgM Bands Det CSF Lyme Disease DNA Not detected (Not Detecte) CSF Cryptococcus Ag Not detected (Negative) CSF Herpes I DNA (PCR) Negative (Negative) CSF Herpes II DNA (PCR) Negative (Negative) Urine Opiates Screen (Neg) Ur Barbiturates Screen (Neg) Ur Amphetamines Screen (Neg) U Benzodiazepines Scrn (Neg) Urine Cocaine Screen (Neg) U Cannabinoids Screen (Neg) Serum Alcohol (0-5) mg/dL Zinc (60-130) mcg/dL IgG (670-1640) mg/dL IgA (78-430) mg/dL IgM (55-338) mg/dL IgE (<= 214) kU/L Rheumatoid Factor Scrn (Negative) Rheumatoid Factor Titer CHAVEZ Screen (Neg) RPR (Nonreactive) Hepatitis A IgM Ab (Nonreactive) Hep Bs Antigen (Nonreactive) Hep B Core IgM Ab (Nonreactive) Hep C IgG Ab (Nonreactive) HIV 1&2 Ab/P24 Ag 4thGn (Nonreactive) M. pneumoniae Interp Mycoplasma pneumon IgG (Negative) Mycoplasma pneumon IgM (Negative) Blood Type Blood Type Recheck Antibody Screen MTS Gel Crossmatch 08/14/18 08/14/18 08/14/18 Range/Units 10:13 10:13 11:55 WBC (4.0-11.0) th/mm3 Corrected WBC RBC (4.00-5.30) mil/mm3 Hgb (11.6-15.3) gm/dL Hct (35.0-46.0) % MCV (80.0-100.0) fL MCH (27.0-34.0) pg MCHC (32.0-36.0) % RDW (11.6-17.2) % Plt Count (150-450) th/mm3 MPV (7.0-11.0) fL Prelim Diff (Auto) Neut % (Auto) (16.0-70.0) % Lymph % (Auto) (9.0-44.0) % [place] % (Auto) (0.0-8.0) % Eos % (Auto) (0.0-4.0) % Baso % (Auto) (0.0-2.0) % Neut # (Auto) (1.8-7.7) th/mm3 Lymph # (Auto) (1.0-4.8) th/mm3 [place] # (Auto) (0.0-0.9) th/mm3 Eos # (Auto) (0.0-0.4) th/mm3 Baso # (Auto) (0.0-0.2) th/mm3 WBC Differential Differential Comment ESR (0-20) mm/hr Hematology Comments PT 10.5 (9.8-11.6) sec INR 1.0 Ratio APTT 22.3 L (23.4-31.7) sec Sodium (136-145) meq/L Potassium (3.5-5.1) meq/L Chloride (98-107) meq/L Carbon Dioxide (21.0-32.0) meq/L Anion Gap (5-15) meq/L BUN (7-18) mg/dL Creatinine (0.50-1.00) mg/dL Estimated GFR (>89) mL/min Random Glucose (74-106) mg/dL Calcium (8.5-10.1) mg/dL Phosphorus (2.5-4.9) mg/dL Magnesium (1.5-2.5) mg/dL Iron (50-170) mcg/dL TIBC (250-450) mcg/dL % Saturation (20-50) % Ferritin (8-252) ng/mL Total Bilirubin (0.2-1.0) mg/dL AST (15-37) U/L ALT (10-53) U/L Alkaline Phosphatase (45-117) U/L Ammonia (11-32) mcmol/L Total Creatine Kinase (26-192) U/L Troponin I (0.02-0.05) ng/mL Total Protein (6.4-8.2) g/dL Total Protein (PEP) (6.4-8.2) gm/dL Albumin (3.4-5.0) g/dL Albumin (PEP) (3.50-5.00) gm/dL Albumin/Globulin Ratio (1.39-2.23) Oxljk-1-Qvlboules (0.11-0.29) gm/dL Abfod-7-Uasbirgji (0.22-1.00) gm/dL Beta Globulins (0.53-1.03) gm/dL Gamma Globulins (0.50-1.39) gm/dL PEP Pathologist Comment Ceruloplasmin (18-53) mg/dL Thiamine (70-180) nmol/L Vitamin B12 (193-986) pg/mL Methylmalonic Acid (<=0.40) nmol/mL Folate (3.1-17.5) ng/mL TSH (0.358-3.740) uIU/mL Free T4 (0.76-1.46) ng/dL Beta HCG, Quant (0-5) mIU/mL Urine Color (Yellw/Straw) Urine Clarity (Clear) Urine pH (5.0-8.5) Ur Specific [place] (1.002-1.035) Urine Protein (Neg-Trace) mg/dL Urine Glucose (UA) (Negative) mg/dL Urine Ketones (Negative) mg/dL Urine Occult Blood (Negative) Urine Nitrate (Negative) Urine Bilirubin (Negative) Urine Urobilinogen (Less than 2) mg/dL Ur Leukocyte Esterase (Negative) Urine RBC (0-3) /hpf Urine WBC (0-5) /hpf Ur Squamous Epith Cells (0-5) /hpf Urine Bacteria (None) /hpf Micro UA Comment Ur Microscopic Review Urine Culture Comments CSF Volume (1) mL CSF Supernat Color (1) (Clear) CSF Gross Blood (1) (0) CSF WBC (1) (0-10) /mm3 CSF RBC (1) (None) /mm3 CSF Volume (2) mL CSF Supernat Color (2) (Clear) CSF Gross Blood (2) (0) CSF Volume (3) mL CSF Supernat Color (3) (Clear) CSF Gross Blood (3) (0) CSF Volume (4) mL CSF Supernat Color (4) (Clear) CSF Gross Blood (4) (0) CSF Neutrophils % % CSF Lymphocytes % % CSF Monocytes % % CSF Histiocytes % CSF Total Protein 31.2 (15.0-45.0) mg/dL CSF VDRL Non-reactive CSF Lyme IgG Bands Det CSF Lyme IgM Bands Det CSF Lyme Disease DNA (Not Detecte) CSF Cryptococcus Ag (Negative) CSF Herpes I DNA (PCR) (Negative) CSF Herpes II DNA (PCR) (Negative) Urine Opiates Screen (Neg) Ur Barbiturates Screen (Neg) Ur Amphetamines Screen (Neg) U Benzodiazepines Scrn (Neg) Urine Cocaine Screen (Neg) U Cannabinoids Screen (Neg) Serum Alcohol (0-5) mg/dL Zinc (60-130) mcg/dL IgG (670-1640) mg/dL IgA (78-430) mg/dL IgM (55-338) mg/dL IgE (<= 214) kU/L Rheumatoid Factor Scrn (Negative) Rheumatoid Factor Titer CHAVEZ Screen (Neg) RPR (Nonreactive) Hepatitis A IgM Ab (Nonreactive) Hep Bs Antigen (Nonreactive) Hep B Core IgM Ab (Nonreactive) Hep C IgG Ab (Nonreactive) HIV 1&2 Ab/P24 Ag 4thGn (Nonreactive) M. pneumoniae Interp Mycoplasma pneumon IgG (Negative) Mycoplasma pneumon IgM (Negative) Blood Type Blood Type Recheck Antibody Screen MTS Gel Crossmatch 08/15/18 08/15/18 08/15/18 Range/Units 06:17 06:17 11:25 WBC (4.0-11.0) th/mm3 Corrected WBC RBC (4.00-5.30) mil/mm3 Hgb 9.1 L (11.6-15.3) gm/dL Hct (35.0-46.0) % MCV (80.0-100.0) fL MCH (27.0-34.0) pg MCHC (32.0-36.0) % RDW (11.6-17.2) % Plt Count (150-450) th/mm3 MPV (7.0-11.0) fL Prelim Diff (Auto) Neut % (Auto) (16.0-70.0) % Lymph % (Auto) (9.0-44.0) % [place] % (Auto) (0.0-8.0) % Eos % (Auto) (0.0-4.0) % Baso % (Auto) (0.0-2.0) % Neut # (Auto) (1.8-7.7) th/mm3 Lymph # (Auto) (1.0-4.8) th/mm3 [place] # (Auto) (0.0-0.9) th/mm3 Eos # (Auto) (0.0-0.4) th/mm3 Baso # (Auto) (0.0-0.2) th/mm3 WBC Differential Differential Comment ESR (0-20) mm/hr Hematology Comments PT (9.8-11.6) sec INR Ratio APTT (23.4-31.7) sec Sodium (136-145) meq/L Potassium (3.5-5.1) meq/L Chloride (98-107) meq/L Carbon Dioxide (21.0-32.0) meq/L Anion Gap (5-15) meq/L BUN (7-18) mg/dL Creatinine (0.50-1.00) mg/dL Estimated GFR (>89) mL/min Random Glucose (74-106) mg/dL Calcium (8.5-10.1) mg/dL Phosphorus (2.5-4.9) mg/dL Magnesium (1.5-2.5) mg/dL Iron (50-170) mcg/dL TIBC (250-450) mcg/dL % Saturation (20-50) % Ferritin (8-252) ng/mL Total Bilirubin (0.2-1.0) mg/dL AST (15-37) U/L ALT (10-53) U/L Alkaline Phosphatase (45-117) U/L Ammonia 13 (11-32) mcmol/L Total Creatine Kinase (26-192) U/L Troponin I (0.02-0.05) ng/mL Total Protein (6.4-8.2) g/dL Total Protein (PEP) (6.4-8.2) gm/dL Albumin (3.4-5.0) g/dL Albumin (PEP) (3.50-5.00) gm/dL Albumin/Globulin Ratio (1.39-2.23) Dkqvv-4-Fqdcachnc (0.11-0.29) gm/dL Kzxtb-1-Bpmstarxx (0.22-1.00) gm/dL Beta Globulins (0.53-1.03) gm/dL Gamma Globulins (0.50-1.39) gm/dL PEP Pathologist Comment Ceruloplasmin (18-53) mg/dL Thiamine 242 H (70-180) nmol/L Vitamin B12 (193-986) pg/mL Methylmalonic Acid 0.22 (<=0.40) nmol/mL Folate (3.1-17.5) ng/mL TSH (0.358-3.740) uIU/mL Free T4 (0.76-1.46) ng/dL Beta HCG, Quant (0-5) mIU/mL Urine Color (Yellw/Straw) Urine Clarity (Clear) Urine pH (5.0-8.5) Ur Specific [place] (1.002-1.035) Urine Protein (Neg-Trace) mg/dL Urine Glucose (UA) (Negative) mg/dL Urine Ketones (Negative) mg/dL Urine Occult Blood (Negative) Urine Nitrate (Negative) Urine Bilirubin (Negative) Urine Urobilinogen (Less than 2) mg/dL Ur Leukocyte Esterase (Negative) Urine RBC (0-3) /hpf Urine WBC (0-5) /hpf Ur Squamous Epith Cells (0-5) /hpf Urine Bacteria (None) /hpf Micro UA Comment Ur Microscopic Review Urine Culture Comments CSF Volume (1) mL CSF Supernat Color (1) (Clear) CSF Gross Blood (1) (0) CSF WBC (1) (0-10) /mm3 CSF RBC (1) (None) /mm3 CSF Volume (2) mL CSF Supernat Color (2) (Clear) CSF Gross Blood (2) (0) CSF Volume (3) mL CSF Supernat Color (3) (Clear) CSF Gross Blood (3) (0) CSF Volume (4) mL CSF Supernat Color (4) (Clear) CSF Gross Blood (4) (0) CSF Neutrophils % % CSF Lymphocytes % % CSF Monocytes % % CSF Histiocytes % CSF Total Protein (15.0-45.0) mg/dL CSF VDRL CSF Lyme IgG Bands Det CSF Lyme IgM Bands Det CSF Lyme Disease DNA (Not Detecte) CSF Cryptococcus Ag (Negative) CSF Herpes I DNA (PCR) (Negative) CSF Herpes II DNA (PCR) (Negative) Urine Opiates Screen (Neg) Ur Barbiturates Screen (Neg) Ur Amphetamines Screen (Neg) U Benzodiazepines Scrn (Neg) Urine Cocaine Screen (Neg) U Cannabinoids Screen (Neg) Serum Alcohol (0-5) mg/dL Zinc (60-130) mcg/dL IgG (670-1640) mg/dL IgA (78-430) mg/dL IgM (55-338) mg/dL IgE (<= 214) kU/L Rheumatoid Factor Scrn (Negative) Rheumatoid Factor Titer CHAVEZ Screen (Neg) RPR (Nonreactive) Hepatitis A IgM Ab (Nonreactive) Hep Bs Antigen (Nonreactive) Hep B Core IgM Ab (Nonreactive) Hep C IgG Ab (Nonreactive) HIV 1&2 Ab/P24 Ag 4thGn (Nonreactive) M. pneumoniae Interp Mycoplasma pneumon IgG (Negative) Mycoplasma pneumon IgM (Negative) Blood Type Blood Type Recheck Antibody Screen MTS Gel Crossmatch 08/15/18 08/15/18 08/15/18 Range/Units 11:25 11:25 11:28 WBC (4.0-11.0) th/mm3 Corrected WBC RBC (4.00-5.30) mil/mm3 Hgb (11.6-15.3) gm/dL Hct (35.0-46.0) % MCV (80.0-100.0) fL MCH (27.0-34.0) pg MCHC (32.0-36.0) % RDW (11.6-17.2) % Plt Count (150-450) th/mm3 MPV (7.0-11.0) fL Prelim Diff (Auto) Neut % (Auto) (16.0-70.0) % Lymph % (Auto) (9.0-44.0) % [place] % (Auto) (0.0-8.0) % Eos % (Auto) (0.0-4.0) % Baso % (Auto) (0.0-2.0) % Neut # (Auto) (1.8-7.7) th/mm3 Lymph # (Auto) (1.0-4.8) th/mm3 [place] # (Auto) (0.0-0.9) th/mm3 Eos # (Auto) (0.0-0.4) th/mm3 Baso # (Auto) (0.0-0.2) th/mm3 WBC Differential Differential Comment ESR (0-20) mm/hr Hematology Comments PT (9.8-11.6) sec INR Ratio APTT (23.4-31.7) sec Sodium (136-145) meq/L Potassium (3.5-5.1) meq/L Chloride (98-107) meq/L Carbon Dioxide (21.0-32.0) meq/L Anion Gap (5-15) meq/L BUN (7-18) mg/dL Creatinine (0.50-1.00) mg/dL Estimated GFR (>89) mL/min Random Glucose (74-106) mg/dL Calcium (8.5-10.1) mg/dL Phosphorus (2.5-4.9) mg/dL Magnesium (1.5-2.5) mg/dL Iron (50-170) mcg/dL TIBC (250-450) mcg/dL % Saturation (20-50) % Ferritin 10 (8-252) ng/mL Total Bilirubin (0.2-1.0) mg/dL AST (15-37) U/L ALT (10-53) U/L Alkaline Phosphatase (45-117) U/L Ammonia (11-32) mcmol/L Total Creatine Kinase (26-192) U/L Troponin I (0.02-0.05) ng/mL Total Protein (6.4-8.2) g/dL Total Protein (PEP) (6.4-8.2) gm/dL Albumin (3.4-5.0) g/dL Albumin (PEP) (3.50-5.00) gm/dL Albumin/Globulin Ratio (1.39-2.23) Wacej-4-Lqlyvhdwu (0.11-0.29) gm/dL Lctji-4-Knbjwkurk (0.22-1.00) gm/dL Beta Globulins (0.53-1.03) gm/dL Gamma Globulins (0.50-1.39) gm/dL PEP Pathologist Comment Ceruloplasmin 30 (18-53) mg/dL Thiamine (70-180) nmol/L Vitamin B12 (193-986) pg/mL Methylmalonic Acid (<=0.40) nmol/mL Folate (3.1-17.5) ng/mL TSH (0.358-3.740) uIU/mL Free T4 (0.76-1.46) ng/dL Beta HCG, Quant (0-5) mIU/mL Urine Color (Yellw/Straw) Urine Clarity (Clear) Urine pH (5.0-8.5) Ur Specific [place] (1.002-1.035) Urine Protein (Neg-Trace) mg/dL Urine Glucose (UA) (Negative) mg/dL Urine Ketones (Negative) mg/dL Urine Occult Blood (Negative) Urine Nitrate (Negative) Urine Bilirubin (Negative) Urine Urobilinogen (Less than 2) mg/dL Ur Leukocyte Esterase (Negative) Urine RBC (0-3) /hpf Urine WBC (0-5) /hpf Ur Squamous Epith Cells (0-5) /hpf Urine Bacteria (None) /hpf Micro UA Comment Ur Microscopic Review Urine Culture Comments CSF Volume (1) mL CSF Supernat Color (1) (Clear) CSF Gross Blood (1) (0) CSF WBC (1) (0-10) /mm3 CSF RBC (1) (None) /mm3 CSF Volume (2) mL CSF Supernat Color (2) (Clear) CSF Gross Blood (2) (0) CSF Volume (3) mL CSF Supernat Color (3) (Clear) CSF Gross Blood (3) (0) CSF Volume (4) mL CSF Supernat Color (4) (Clear) CSF Gross Blood (4) (0) CSF Neutrophils % % CSF Lymphocytes % % CSF Monocytes % % CSF Histiocytes % CSF Total Protein (15.0-45.0) mg/dL CSF VDRL CSF Lyme IgG Bands Det CSF Lyme IgM Bands Det CSF Lyme Disease DNA (Not Detecte) CSF Cryptococcus Ag (Negative) CSF Herpes I DNA (PCR) (Negative) CSF Herpes II DNA (PCR) (Negative) Urine Opiates Screen (Neg) Ur Barbiturates Screen (Neg) Ur Amphetamines Screen (Neg) U Benzodiazepines Scrn (Neg) Urine Cocaine Screen (Neg) U Cannabinoids Screen (Neg) Serum Alcohol (0-5) mg/dL Zinc (60-130) mcg/dL IgG (670-1640) mg/dL IgA (78-430) mg/dL IgM (55-338) mg/dL IgE (<= 214) kU/L Rheumatoid Factor Scrn (Negative) Rheumatoid Factor Titer CHAVEZ Screen (Neg) RPR (Nonreactive) Hepatitis A IgM Ab Nonreactive (Nonreactive) Hep Bs Antigen Nonreactive (Nonreactive) Hep B Core IgM Ab Reactive H (Nonreactive) Hep C IgG Ab Nonreactive (Nonreactive) HIV 1&2 Ab/P24 Ag 4thGn (Nonreactive) M. pneumoniae Interp Mycoplasma pneumon IgG (Negative) Mycoplasma pneumon IgM (Negative) Blood Type Blood Type Recheck Antibody Screen MTS Gel Crossmatch 08/16/18 08/17/18 Range/Units 19:35 05:33 WBC (4.0-11.0) th/mm3 Corrected WBC RBC (4.00-5.30) mil/mm3 Hgb (11.6-15.3) gm/dL Hct (35.0-46.0) % MCV (80.0-100.0) fL MCH (27.0-34.0) pg MCHC (32.0-36.0) % RDW (11.6-17.2) % Plt Count (150-450) th/mm3 MPV (7.0-11.0) fL Prelim Diff (Auto) Neut % (Auto) (16.0-70.0) % Lymph % (Auto) (9.0-44.0) % [place] % (Auto) (0.0-8.0) % Eos % (Auto) (0.0-4.0) % Baso % (Auto) (0.0-2.0) % Neut # (Auto) (1.8-7.7) th/mm3 Lymph # (Auto) (1.0-4.8) th/mm3 [place] # (Auto) (0.0-0.9) th/mm3 Eos # (Auto) (0.0-0.4) th/mm3 Baso # (Auto) (0.0-0.2) th/mm3 WBC Differential Differential Comment ESR (0-20) mm/hr Hematology Comments PT (9.8-11.6) sec INR Ratio APTT (23.4-31.7) sec Sodium 141 (136-145) meq/L Potassium 3.8 (3.5-5.1) meq/L Chloride 108 H (98-107) meq/L Carbon Dioxide 24.6 (21.0-32.0) meq/L Anion Gap 8 (5-15) meq/L BUN 8 (7-18) mg/dL Creatinine 0.64 (0.50-1.00) mg/dL Estimated GFR Greater than 89 (>89) mL/min Random Glucose 93 (74-106) mg/dL Calcium 8.7 (8.5-10.1) mg/dL Phosphorus (2.5-4.9) mg/dL Magnesium (1.5-2.5) mg/dL Iron (50-170) mcg/dL TIBC (250-450) mcg/dL % Saturation (20-50) % Ferritin (8-252) ng/mL Total Bilirubin (0.2-1.0) mg/dL AST (15-37) U/L ALT (10-53) U/L Alkaline Phosphatase (45-117) U/L Ammonia (11-32) mcmol/L Total Creatine Kinase (26-192) U/L Troponin I (0.02-0.05) ng/mL Total Protein (6.4-8.2) g/dL Total Protein (PEP) (6.4-8.2) gm/dL Albumin (3.4-5.0) g/dL Albumin (PEP) (3.50-5.00) gm/dL Albumin/Globulin Ratio (1.39-2.23) Yqazz-6-Ueptixzve (0.11-0.29) gm/dL Umyck-4-Xkpimzcld (0.22-1.00) gm/dL Beta Globulins (0.53-1.03) gm/dL Gamma Globulins (0.50-1.39) gm/dL PEP Pathologist Comment Ceruloplasmin (18-53) mg/dL Thiamine (70-180) nmol/L Vitamin B12 (193-986) pg/mL Methylmalonic Acid (<=0.40) nmol/mL Folate (3.1-17.5) ng/mL TSH (0.358-3.740) uIU/mL Free T4 (0.76-1.46) ng/dL Beta HCG, Quant (0-5) mIU/mL Urine Color Straw (Yellw/Straw) Urine Clarity Clear (Clear) Urine pH 7.0 (5.0-8.5) Ur Specific [place] 1.004 (1.002-1.035) Urine Protein Negative (Neg-Trace) mg/dL Urine Glucose (UA) Negative (Negative) mg/dL Urine Ketones Negative (Negative) mg/dL Urine Occult Blood Negative (Negative) Urine Nitrate Negative (Negative) Urine Bilirubin Negative (Negative) Urine Urobilinogen Less than 2 (Less than 2) mg/dL Ur Leukocyte Esterase Negative (Negative) Urine RBC 1 (0-3) /hpf Urine WBC 1 (0-5) /hpf Ur Squamous Epith Cells 1 (0-5) /hpf Urine Bacteria Rare H (None) /hpf Micro UA Comment Culture not ind Ur Microscopic Review Not Reportable Urine Culture Comments Culture not ind CSF Volume (1) mL CSF Supernat Color (1) (Clear) CSF Gross Blood (1) (0) CSF WBC (1) (0-10) /mm3 CSF RBC (1) (None) /mm3 CSF Volume (2) mL CSF Supernat Color (2) (Clear) CSF Gross Blood (2) (0) CSF Volume (3) mL CSF Supernat Color (3) (Clear) CSF Gross Blood (3) (0) CSF Volume (4) mL CSF Supernat Color (4) (Clear) CSF Gross Blood (4) (0) CSF Neutrophils % % CSF Lymphocytes % % CSF Monocytes % % CSF Histiocytes % CSF Total Protein (15.0-45.0) mg/dL CSF VDRL CSF Lyme IgG Bands Det CSF Lyme IgM Bands Det CSF Lyme Disease DNA (Not Detecte) CSF Cryptococcus Ag (Negative) CSF Herpes I DNA (PCR) (Negative) CSF Herpes II DNA (PCR) (Negative) Urine Opiates Screen (Neg) Ur Barbiturates Screen (Neg) Ur Amphetamines Screen (Neg) U Benzodiazepines Scrn (Neg) Urine Cocaine Screen (Neg) U Cannabinoids Screen (Neg) Serum Alcohol (0-5) mg/dL Zinc (60-130) mcg/dL IgG (670-1640) mg/dL IgA (78-430) mg/dL IgM (55-338) mg/dL IgE (<= 214) kU/L Rheumatoid Factor Scrn (Negative) Rheumatoid Factor Titer CHAVEZ Screen (Neg) RPR (Nonreactive) Hepatitis A IgM Ab (Nonreactive) Hep Bs Antigen (Nonreactive) Hep B Core IgM Ab (Nonreactive) Hep C IgG Ab (Nonreactive) HIV 1&2 Ab/P24 Ag 4thGn (Nonreactive) M. pneumoniae Interp Mycoplasma pneumon IgG (Negative) Mycoplasma pneumon IgM (Negative) Blood Type Blood Type Recheck Antibody Screen MTS Gel Crossmatch Imaging Data Radiologist's impression: Cervical Spine CT 08/12/18 21:45 CONCLUSION: 1. No fracture or subluxation of the cervical spine. 2. Mild degenerative changes at C5/C6. Head CT 08/12/18 21:45 CONCLUSION: Negative noncontrast head CT. . Abdomen/Pelvis CT 08/13/18 00:00 CONCLUSION: 1. Early or mild appendicitis possible in the proper clinical setting. 2. Liver is mild fatty infiltrated. 3. Scattered small benign cysts and tiny nonobstructing stones of each kidney. 4. Small left ovarian cyst, most likely physiologic. 5. Old bilateral rib fractures. No acute bony abnormality seen. Cervical Spine MRI 08/13/18 09:07 CONCLUSION: 1. Degenerative disc disease at C4-5 and C5-6 with resultant moderate central canal narrowing at C5-6 level. 2. Moderate to severe left neural foraminal narrowing secondary to osteophytes at C5-6. 3. No cord signal abnormality or abnormal enhancement/mass. Head MRI 08/13/18 09:07 CONCLUSION: 1. Negative MR Brain with and without contrast. 2. No evidence of acute infarct, hemorrhage, mass or edema. 3. No evidence of enhancing lesions. Thoracic Spine MRI 08/13/18 09:07 CONCLUSION: 1. Multilevel disc desiccation with minimal degenerative disc disease at T7-8. 2. Otherwise, unremarkable MRI examination of the thoracic spine. 3. Specifically, no evidence for abnormal enhancement or mass. Discharge Plan Discharge Disposition Patient Disposition: 30 Still Patient Discharge Details Diagnosis: Symptomatic anemia, Peripheral neuropathy Physicians Team ED Provider: Kassidy Hayden ED Midlevel Provider: Kathy Ferreira Primary Care Provider: Lauren Aguayo Attending Provider: Cindy Yao Other Providers: Estefania Varela ; Yobani Horn ; Rolando Blackburn ; Emily Cotto Status ED Status: Left Department Discharge Information Discharge Date/Time: 08/13/18 00:53
--- NOTE | 2018-08-12 22:06 | CT ---
EXAM DATE: 08/12/2018 10:03 PM EST AGE/SEX: 48 years / Female INDICATIONS: Trauma, fall three weeks ago, general weakness. CLINICAL DATA: This is the patient's initial encounter. Patient reports that signs and symptoms have been present for 3 weeks and indicates a pain score of 4/10. MEDICAL/SURGICAL HISTORY: Hypertension. None. RADIATION DOSE: 40.53 CTDI (mGy) COMPARISON: [facility], CT BRAIN W/O CONTRAST, 05/25/2012. . TECHNIQUE: CT of the head without contrast. Using automated exposure control and adjustment of the mA and/or kV according to patient size, radiation dose was kept as low as reasonably achievable to ob tain optimal diagnostic quality images. DICOM format image data is available electronically for revi ew and comparison. FINDINGS: Cerebrum: The ventricles are normal for age. No evidence of midline shift, mass lesion, hemorrhage or acute infarction. No extraaxial fluid collections are seen. Posterior Fossa: The cerebellum and brainstem are intact. The 4th ventricle is midline. The cerebe llopontine angle is unremarkable. Extracranial: The visualized portion of the orbits is intact. Skull: The calvaria is intact. No evidence of skull fracture. CONCLUSION: Negative noncontrast head CT. . Electronically signed by: Ron Ramirez MD 08/12/2018 10:05 PM EST
[2018-08-12 22:10] LABS: Baso # (Auto) 0.2 th/mm3 (0.0-0.2); Baso % (Auto) 1.3 % (0.0-2.0); Eos # (Auto) 0.2 th/mm3 (0.0-0.4); Eos % (Auto) 1.9 % (0.0-4.0); Lymph # (Auto) 4.2 th/mm3 (1.0-4.8); Mean Corpuscular HGB Conc 31.9 % (32.0-36.0); Mean Corpuscular Hemoglobin 24.1 pg (27.0-34.0); Mean Corpuscular Volume 75.6 fL (80.0-100.0); Mean Platelet Volume 8.8 fL (7.0-11.0); Mono % (Auto) 7.8 % (0.0-8.0); Neut # (Auto) 6.8 th/mm3 (1.8-7.7); Platelet Count 518 th/mm3 (150-450); Red Blood Count 2.79 mil/mm3 (4.00-5.30); White Blood Count 12.4 th/mm3 (4.0-11.0)
--- NOTE | 2018-08-12 22:11 | CT ---
EXAM DATE: 08/12/2018 10:07 PM EST AGE/SEX: 48 years / Female INDICATIONS: Trauma, fall three weeks ago. General weakness and numbness in upper extremities. CLINICAL DATA: This is the patient's initial encounter. Patient reports that signs and symptoms have been present for 3 weeks and indicates a pain score of 4/10. MEDICAL/SURGICAL HISTORY: Hypertension. None. RADIATION DOSE: 13.95 CTDI (mGy) COMPARISON: No prior exams available for comparison. TECHNIQUE: Contiguous axial images were obtained using helical multirow detector technique. The vol umetric data was post-processed with multiplanar reconstruction in oblique axial, sagittal, and coron al planes. Using automated exposure control and adjustment of the mA and/or kV according to patient s ize, radiation dose was kept as low as reasonably achievable to obtain optimal diagnostic quality quinton ges. DICOM format image data is available electronically for review and comparison. FINDINGS: Vertebrae: Normal vertebral body height. Alignment: Normal. No subluxation. C2-3: The bony spinal canal is normal in size. No evidence of disc bulge or herniation. The neural foramina are bilaterally patent. C3-4: The bony spinal canal is normal in size. No evidence of disc bulge or herniation. The neural foramina are bilaterally patent. C4-5: The bony spinal canal is normal in size. No evidence of disc bulge or herniation. The neural foramina are bilaterally patent. C5-6: Mild disc space narrowing with annular bulging and mild bilateral uncovertebral and facet oste oarthritis. There is very mild right foraminal stenosis. No evidence of spinal stenosis. C6-7: The bony spinal canal is normal in size. No evidence of disc bulge or herniation. The neural foramina are bilaterally patent. C7-T1: The bony spinal canal is normal in size. No evidence of disc bulge or herniation. The neura l foramina are bilaterally patent. CONCLUSION: 1. No fracture or subluxation of the cervical spine. 2. Mild degenerative changes at C5/C6. Electronically signed by: Ron Ramirez MD 08/12/2018 10:10 PM EST
[2018-08-12 22:14] LABS: Hemoglobin 6.7 gm/dL (11.6-15.3)
[2018-08-12 22:15] LABS: Hematocrit 21.1 % (35.0-46.0)
[2018-08-12 22:30] LABS: Activated Partial Thrombo Time 22.4 sec (23.4-31.7); INR 0.9 Ratio; Prothrombin Time 9.6 sec (9.8-11.6)
[2018-08-12 22:30] LABS: Amphetamine Screen,Urine Neg (Neg); Barbiturate Screen,Urine Neg (Neg); Cannabinoid Screen,Urine Neg (Neg); Cocaine Screen,Urine Neg (Neg)
[2018-08-12] MEDS ORDERED: Thiamine Inj 100 MG in Sodium Chlor 0.9% Inj 100 ML IV.SIG ONE (22:30)
[2018-08-12 22:34] LABS: Thyroid Stimulating Hormone 5.17 uIU/mL (0.358-3.740)
[2018-08-12 22:36] LABS: Bilirubin,Urine Negative (Negative); Clarity,Urine Clear (Clear); Color,Urine Straw (Yellw/Straw); Glucose,Urine (UA) Negative (Negative); Leukocyte Esterase,Urine Negative (Negative); Nitrite,Urine Negative (Negative); Specific Gravity,Urine 1.004 (1.002-1.035); Squamous Epithelial Cell,Urine 1 /hpf (0-5)
[2018-08-12 22:48] LABS: Opiate Screen,Urine Neg (Neg)
[2018-08-12] MEDS ORDERED: Sodium Chlor 0.9% Inj 250 ML IV.SIG SCH (23:00)
[2018-08-12 23:40] LABS: Albumin 3.8 g/dL (3.4-5.0); Anion Gap 13 meq/L (5-15); Aspartate Aminotransferase 15 U/L (15-37); Blood Urea Nitrogen 13 mg/dL (7-18); Calcium 8.9 mg/dL (8.5-10.1); Carbon Dioxide 21.8 meq/L (21.0-32.0); Chloride 106 meq/L (98-107); Glomerular Filtration Rate 80 mL/min (>89); Glucose,Random 100 mg/dL (74-106); Potassium 3.5 meq/L (3.5-5.1); Sodium 141 meq/L (136-145)
[2018-08-12 23:41] LABS: Alanine Aminotransferase 19 U/L (10-53)
[2018-08-12 23:45] LABS: Alkaline Phosphatase 106 U/L (45-117); Total Protein 8.1 g/dL (6.4-8.2)
[2018-08-12] MEDS ORDERED: Haloperidol Inj 5 MG/ML Ampul IV.PUSH PRN (23:59)
[2018-08-13] MEDS ORDERED: Pantoprazole Inj 80 MG in Sodium Chlor 0.9% Inj 50 ML IV.SIG ONE (00:01)
[2018-08-13 00:33] LABS: % Iron Saturation 1.7 % (20-50)
--- NOTE | 2018-08-13 01:00 | P.HPIM ---
History of Present Illness Primary Care Physician: Lauren Aguayo MD History of Present Illness: 48-year-old female with a history of hypertension, alcohol abuse who presents to the ER with a 2-month history of progressively worsening generalized weakness , fatigue, as well as bilateral upper and lower extremity numbness, weakness, paresthesias. She says she is now is to the point where she cannot walk without assistance, stumbles easily. Patient says she has been drinking to control the pain, however family thought it best for her to come in to get her fatigue and peripheral paresthesias addressed. Patient is found to be anemic on labs. She denies any bright red blood per rectum, denies any hematemesis, melena. She is no longer having periods. Denies any fevers, chills, chest pain , shortness of breath. He reports chronic vague abdominal discomfort which she believes is secondary to constipation. Patient initially says she does not drink that much, however says she drinks to treat the paresthesias in her extremities. Alcohol level of 206. Inpatient Certification: I certify that the inpatient services were ordered in accordance with Medicare regulations governing the order. This includes certification that hospital inpatient services are reasonable and necessary and in the case of services not specified as inpatient-only under 42 CFR 419.22(n), that they are appropriately provided as inpatient services in accordance to with the 2-midnight benchmark under 43 CFR 412.3(e) Estimated Total Length of Stay (Days): 2 Plans for Post Hospital Care: Home Review of Systems All other systems reviewed negative except as stated in [facility] - History History Provided By: Patient - Medical History Medical History: Medical History (Last Reviewed 08/13/18 @ 00:36 by Reggie Miller MD) Hypertension - Surgical History Surgical History: Surgical History (Last Updated 08/12/18 @ 20:55 by Clair Frederick) History of orthopedic surgery - Family History Family History: Family History (Last Updated 08/13/18 @ 00:40 by Reggie Miller MD) Mother Cancer Father Diabetes - Tobacco History Second Hand Smoke Exposure: No Smoking Status: Never smoker - Alcohol History How Often Do You Have a Drink Containing Alcohol: 4 or more times a week - Substance Use History Substance History: Active Abuse - Substance Use Type Alcohol Status: Active Route Used: By Mouth Frequency: 1/2 gallon every couple days Comment: for pain control - Travel History Recent Travel in the [place] Within the Last 8 Weeks: No Recent Travel Out of the Country Within the Last 8 Weeks: No - Immunization History Tetanus Immunization: <5 Years Medications and Allergies Active Medications: Active Medications Flumazenil (Romazecon Inj) 0.2 mg IV.PUSH Q1M PRN PRN Reason: OVERSEDATION Haloperidol Lactate (Haldol Inj) 1 mg IV.PUSH Q15M PRN PRN Reason: for severe agitation Sodium Chloride (Ns Inj) 250 mls @ 15 mls/hr IV.SIG ONCE BEBETO Stop: 08/13/18 15:39 Last Admin: 08/13/18 00:14 Dose: 15 mls/hr Sodium Chloride (Ns Inj) 1,000 mls @ 100 mls/hr IV.CONT .Q10H BEBETO Lorazepam (Ativan) 1 mg PO Q4H PRN PRN Reason: for CIWA 8-10 Lorazepam (Ativan) 2 mg PO Q2H PRN PRN Reason: for CIWA 11-14 Lorazepam (Ativan Inj) 2 mg IV.PUSH Q2H PRN PRN Reason: for CIWA 11-14 Lorazepam (Ativan Inj) 2 mg IV.PUSH Q1H PRN PRN Reason: for CIWA 15-20 Lorazepam (Ativan Inj) 2 mg IV.PUSH Q15M PRN PRN Reason: for CIWA > 20 Lorazepam (Ativan Inj) 1 mg IV.PUSH Q4H PRN PRN Reason: for CIWA 8-10 Pantoprazole Sodium (Protonix Inj) 40 mg IV.PUSH BID BEBETO Sodium Chloride (Ns Flush) 2 ml IV.FLUSH BID BEBETO Sodium Chloride (Ns Flush) 2 ml IV.FLUSH PRN PRN PRN Reason: FLUSH AFTER USING IV ACCESS Allergies Allergy/AdvReac Type Severity Reaction Status Date / Time acetaminophen Allergy Severe Rash Verified 08/12/18 21:13 doxycycline Allergy Severe Rash Verified 08/12/18 21:13 minocycline Allergy Severe Rash Verified 08/12/18 21:13 morphine Allergy Severe HIVES Verified 08/12/18 21:13 ondansetron Allergy Severe HIVES Verified 08/12/18 21:13 penicillin G Allergy Severe Rash Verified 08/12/18 21:13 propoxyphene Allergy Severe Rash Verified 08/12/18 21:13 tigecycline Allergy Severe Rash Verified 08/12/18 21:13 Sulfa (Sulfonamide Allergy Unknown Nausea/Vomi Verified 08/12/18 21:13 Antibiotics) ting Home Medications Medication Instructions Recorded Confirmed Type lisinopril 20 mg PO DAILY 08/12/18 08/12/18 History Exam Vital signs: Vital Signs 08/12/18 20:51 08/12/18 22:14 08/13/18 00:04 Temperature 98.4 F 97.6 F Pulse Rate 119 H 105 H 101 H Respiratory Rate 16 20 Blood Pressure 110/71 119/74 Pulse Oximetry 100 98 100 08/13/18 00:20 Temperature 98.8 F Pulse Rate 107 H Respiratory Rate 18 Blood Pressure 125/81 Pulse Oximetry 100 Intake & Output 08/12/18 08/12/18 08/13/18 06:59 18:59 06:59 Intake Total 101 / 101 Balance 101 / 101 Weight 51.71 kg Intake: IV 101 / 101 Thiamine Inj 100 MG In NS Inj 101 / 101 100 ML @ 100 mls/hr IV.SIG ONCE ONE Rx#:[id number] Intake (Blood Product) Amt 0 / 0 Rbc As-3 Leukoreduced Unit 0 / 0 [id number] Narrative: GENERAL: Patient lying in bed. Appears comfortable. Alert, oriented to person , place, year, not to month. SKIN: Warm and dry. HEAD: Atraumatic. Normocephalic. EYES: Pupils equal and round. No scleral icterus. No injection or drainage. ENT: No nasal bleeding or discharge. Mucous membranes pink and moist. NECK: Trachea midline. No JVD. CARDIOVASCULAR: Regular rate and rhythm. RESPIRATORY: No accessory muscle use. Clear to auscultation. Breath sounds equal bilaterally. GASTROINTESTINAL: Abdomen soft, non-tender, nondistended. Hepatic and splenic margins not palpable. MUSCULOSKELETAL: Extremities without clubbing, cyanosis, or edema. No obvious deformities. NEUROLOGICAL: Awake and alert. No obvious cranial nerve deficits. Motor grossly within normal limits. Patient with 4 out of 5 strength in bilateral upper extremities, bilateral lower extremities. Patient appears to have foot drop, weakness, ataxia in bilateral lower extremities. PSYCHIATRIC: Appropriate mood and affect; insight and judgment normal. Results - Labs CBC & Chem 7: 08/12/18 21:53 08/12/18 21:53 Labs: Short CBC 08/12/18 Range/Units 21:53 WBC 12.4 H (4.0-11.0) th/mm3 Hgb 6.7 L* (11.6-15.3) gm/dL Hct 21.1 L (35.0-46.0) % Plt Count 518 H (150-450) th/mm3 BMP 08/12/18 21:53 Sodium 141 Potassium 3.5 Chloride 106 Carbon Dioxide 21.8 BUN 13 Creatinine 0.77 Calcium 8.9 Cardiac Enzymes 08/12/18 Range/Units 21:53 Troponin I Less than 0.02 L (0.02-0.05) ng/mL Liver Function 08/12/18 Range/Units 21:53 Total Bilirubin 0.2 (0.2-1.0) mg/dL AST 15 (15-37) U/L ALT 19 (10-53) U/L Alkaline Phosphatase 106 (45-117) U/L Albumin 3.8 (3.4-5.0) g/dL Urine 08/12/18 Range/Units 22:13 Urine Color Straw (Yellw/Straw) Urine Clarity Clear (Clear) Urine pH 7.0 (5.0-8.5) Ur Specific [place] 1.004 (1.002-1.035) Urine Protein Negative (Neg-Trace) mg/dL Urine Glucose (UA) Negative (Negative) mg/dL - Imaging Impressions Cervical Spine CT 08/12/18 21:45 CONCLUSION: 1. No fracture or subluxation of the cervical spine. 2. Mild degenerative changes at C5/C6. Head CT 08/12/18 21:45 CONCLUSION: Negative noncontrast head CT. . Caprini VTE Risk Assessment Caprini VTE Risk Assessment: No/Low Risk (score <= 1) Caprini Risk Assessment Model: Point Value = 1 Point Value = 2 Point Value = 3 Point Value = 5 Age 41-60 Minor surgery BMI > 25 kg/m2 Swollen legs Varicose veins or History of unexplained or recurrent spontaneous Oral contraceptives or hormone replacement Sepsis (< 1 month) Serious lung disease, including pneumonia (< 1 month) Abnormal pulmonary function Acute myocardial infarction Congestive heart failure (< 1 month) History of inflammatory bowel disease Medical patient at bed rest Age 61-74 Arthroscopic surgery Major open surgery (> 45 min) Laparoscopic surgery (> 45 min) Malignancy Confined to bed (> 72 hours) Immobilizing plaster cast Central venous access Age >= 75 History of VTE Family history of VTE Factor V Leiden Prothrombin [id number] Lupus anticoagulant Anticardiolipin antibodies Elevated serum homocysteine Heparin-induced thrombocytopenia Other congenital or acquired thrombophilia Stroke (< 1 month) Elective arthroplasty Hip, pelvis, or leg fracture Acute spinal cord injury (< 1 month) Prophylaxis Regimen: Total Risk Factor Score Risk Level Prophylaxis Regimen 0-1 Low Early ambulation 2 Moderate Order ONE of the following: *Sequential Compression Device (SCD) *Heparin 5000 units SQ BID 3-4 Higher Order ONE of the following medications: *Heparin 5000 units SQ TID *Enoxaparin/Lovenox 40 mg SQ daily (WT < 150 kg, CrCl > 30 mL/min) *Enoxaparin/Lovenox 30 mg SQ daily (WT < 150 kg, CrCl > 10-29 mL/min) *Enoxaparin/Lovenox 30 mg SQ BID (WT < 150 kg, CrCl > 30 mL/min) AND/OR *Sequential Compression Device (SCD) 5 or more Highest Order ONE of the following medications: *Heparin 5000 units SQ TID (Preferred with Epidurals) *Enoxaparin/Lovenox 40 mg SQ daily (WT < 150 kg, CrCl > 30 mL/min) *Enoxaparin/Lovenox 30 mg SQ daily (WT < 150 kg, CrCl > 10-29 mL/min) *Enoxaparin/Lovenox 30 mg SQ BID (WT < 150 kg, CrCl > 30 mL/min) AND *Sequential Compression Device (SCD) Assessment and Plan - Plan //Acute symptomatic blood loss anemia. -Hemoglobin 6.7. Generalized weakness Trend hemoglobin -Ferritin 8, TIBC elevated at 643. Low iron. Replace with 2 units PRBCs Consult gastroenterology. Placed on twice daily IV PPI. //Bilateral upper and lower extremity paresthesias, weakness, ataxia. -Note that exam is felt due to patient actually being inebriated on admission. -Replace thiamine. -We will check B12. 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 Due to severity of symptoms, will consult neurology. Appreciate assistance. //Leukocytosis. Likely secondary to stress. No signs of infection. Monitor. //Chronic alcoholism. [facility] protocol. Monitor. //Hypertension. Blood pressure acceptable. Hold off on lisinopril. Discussed Condition With: Patient, nurse, ED physician, at bedside
[2018-08-13] MEDS: Sod Chloride 0.9% Inj 1,000 ML IV.CONT SCH ×3 (02:10→23:36)
--- NOTE | 2018-08-13 08:46 | P.CONGI ---
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 with abdominal pain. She states that the pain is located in her lower abdomen , last for couple hours at a time. Describes the pain as sharp and aching. States that she does not take anything for the pain that eventually resolves on its own. She states that the pain is worse with both bowel movements and eating when it is present. Patient denies any abdominal bloating, unintentional weight loss, acid reflux. Patient denies previous EGD or colonoscopy. Patient states that her mother had colon cancer - ETOH abuse- Drinks 1 pint of vodka over 3 days and has for 20 years. Denies every being diagnosed with any liver issues - Hypertension- per primary team Plan: EGD/colonoscopy tomorrow Obtain consent Clear liquids today Golytely prep NPO after MN Monitor H/H S/P [address] abdomen/pelvis Counseled on ETOH cessation Alcohol withdraw Further recommendations based on findings of above and clinical course This patient has been seen and examined by myself and Dr. Varela and this note is written on her behalf <Marilu Olsen - Last Filed: 08/13/18 08:34> - Attending Attestation seen, examined agree with above <Estefania Varela - Last Filed: 08/13/18 19:30>
[2018-08-13] MEDS: Pantoprazole Inj 40 MG Vial IV.PUSH SCH ×2 (09:00→23:35)
[2018-08-13] MEDS: Escitalopram 10 MG Tablet PO SCH (09:30)
--- NOTE | 2018-08-13 10:53 | MB ---
cc: Yobani Hernandes MD DATE: 08/13/2018 HISTORY OF PRESENT ILLNESS: A 48-year-old right-handed woman with a history of hypertension, UTIs in the past, peptic ulcer disease, some anxiety. She says her feet have been numb and her hands for about 3 months. She has had several falls. She cannot control herself when she walks. Sometime back, she had some procedure done to her neck, possibly an injection. She is not sure, not a very good historian. She was admitted last night from the ER. They had mentioned alcohol abuse, though she says she only drinks twice a week. She came in for headache, neck pain, paresthesias, and weakness. She told me she lived alone, but the ER note says it came from her . Evidently 3 weeks ago, the patient had called the says she tripped over a dog, hit the back of her head and the ground, and soreness in her back, pain in her head and neck for 2 weeks, difficulty getting up off the couch. He has been picking her up, taking her to the bathroom. She has tingling in her hands and feet. Evidently, she drinks 3 large vodka drinks a day, although told me just twice a week. MEDICATIONS AT HOME: Lisinopril. ALLERGIES: SHE IS ALLERGIC TO TYLENOL, DOXYCYCLINE, MINOCYCLINE, MORPHINE, ZOFRAN, PROPOXYPHENE, TIGECYCLINE, AND SULFA. SOCIAL HISTORY: She is not a smoker. She had denied really daily drinking to me, but evidently does have 3 drinks of vodka a day. She lives by herself. FAMILY HISTORY: Positive for cancer in mother, , seizure, stroke. REVIEW OF SYSTEMS: She denied any history of diabetes, hypercholesterolemia, MO, CABG, stent, angioplasty, atrial fibrillation, Coumadin, renal, hepatic or pulmonary disease, thyroid disease, lupus, cancer, seizure or stroke. PHYSICAL EXAMINATION: VITAL SIGNS: T-max is 99. Otherwise, she has been generally afebrile 98, blood pressure 141/95-110/71. NECK: There were no carotid bruits. HEART: Regular rate and rhythm. I did not detect a murmur. NEUROLOGIC: Pupils are equal. Visual langley are full. Extraocular movements intact without nystagmus. Face is symmetric with normal sensation. Tongue was midline. Her exam was difficult. EXTREMITIES: She is not particularly greatly cooperative, but she appeared to have normal strength in bilateral deltoids, triceps and biceps. Geotechnical Engineer was normal. FDI was normal. Her finger extensors, it is unclear if she has give-way weakness or actual weakness. They are a 4-/5. In the lower extremities, she demonstrated quads, iliopsoas had normal strength. Tibialis anterior appeared to be normal, best effort. Toe extensors may be a bit weak 4/5. DTRs are absent throughout upper and lower extremities bilaterally. Toes are downgoing bilaterally. There is no ankle clonus. Tone is normal, though she has some difficulty relaxing the left leg. Other times the tone is normal there. There is no ankle clonus. Pinprick was really hard to say. She appeared to have pinprick on the bottom of her feet bilaterally, but other areas, she said she could not feel anything from her ankles all the way up to her or perivaginal region. She said she was numb on that area. I could not get a definite pin level on the anterior aspect of her chest on the right side. She says she could not feel pinprick, particularly on the left, but on her back, she said she could not feel pinprick down to about T10 on the back, but did feel it on the right side, so on her back, she felt like she was not on the left side and on the front, she felt that she was not on the right side. Pinprick was normal in the entire left hand and upper extremity, but the right arm was diminished pinprick, and face pinprick was intact. She is not ataxic on [id number]. LABORATORY DATA: CBC is normal. Urine drug screen. Alcohol level was 203. UA was negative. BMP was normal. Iron is low at 11. LFTs were normal. Troponin negative. B12 was 395. TSH minimally elevated. Coags were normal. She had a CAT scan of her brain and of her cervical spine that was read as negative. I reviewed the CT films. Those do appear to be normal. IMPRESSION: with my exam. She is not ataxic on [id number] or [id number]. It is a little bit hard to say what is going on. Guillain-Stockton could be considered or a cervical myelopathy, something like multiple sclerosis could be considered. We will check an MRI of her cervical, thoracic, cord in her brain, and some additional blood work. We may need to consider an LP, put her on some sequential hose, have physical therapy work with her. If her scan is negative, I will ambulate her tomorrow. We will try her on some Lexapro for her anxiety. I know she tells me she is HIV negative. MD FAUSTO Tobar/em/ll , 09:09 AM , 09:20 AM
[2018-08-13] MEDS ORDERED: Gadobutrol PF 2 MMOL/2 ML Vial (for RAD) IV.SIG ONE (11:12)
--- NOTE | 2018-08-13 11:26 | MR ---
EXAM DATE: 08/13/2018 11:16 AM EST AGE/SEX: 48 years / Female INDICATIONS: . Numbness in feet and hands. CLINICAL DATA: This is the patient's sequela encounter. Patient reports that signs and symptoms have been present for > 1 year and indicates a pain score of 2/10. MEDICAL/SURGICAL HISTORY: Hypertension. . leg and arm surgery COMPARISON: [facility], MR THORACIC SPINE W & W/O CON, 08/13/2018. . TECHNIQUE: Multiplanar, multisequence MRI examination of the cervical spine was performed without an d with 5.5 ml Gadavist (gadobutrol) contrast as a single exam dose. FINDINGS: VERTEBRAE: Normal vertebral body height. Homogeneous marrow signal. ALIGNMENT: Loss of normal cervical lordosis. Sagittal alignment is otherwise maintained. CORD: Normal configuration and signal. POST FOSSA: The cerebellar tonsils are normal in position. POST-CONTRAST: No abnormal areas of enhancement are seen. C2-C3: The thecal sac has a normal configuration. There is no evidence of disc herniation or spinal canal stenosis. The neural foramina are patent bilaterally. C3-C4: The thecal sac has a normal configuration. There is no evidence of disc herniation or spinal canal stenosis. The neural foramina are patent bilaterally. C4-C5: Left eccentric diffuse disc bulge and uncovertebral osteophytes. Moderate effacement of the le ft anterior lateral recess. Bony neural foramina are patent. C5-C6: Diffuse disc bulge with bilateral uncovertebral osteophytes. Moderate effacement of the anteri or thecal sac with loss of the anterior CSF signal. No significant cord signal abnormality or the for mation. Moderate to severe left neural foraminal stenosis secondary to osteophytes. C6-C7: The thecal sac has a normal configuration. There is no evidence of disc herniation or spinal canal stenosis. The neural foramina are patent bilaterally. C7-T1: No epidural impressions seen. CONCLUSION: 1. Degenerative disc disease at C4-5 and C5-6 with resultant moderate central canal narrowing at C5- 6 level. 2. Moderate to severe left neural foraminal narrowing secondary to osteophytes at C5-6. 3. No cord signal abnormality or abnormal enhancement/mass. Electronically signed by: Helio Gardner MD 08/13/2018 11:25 AM EST
[2018-08-13] MEDS ORDERED: MethylPREDNISolone Sod Succinate Inj 125 MG/2 ML Vial ONE ×2 (11:31→13:09)
--- NOTE | 2018-08-13 12:36 | MR ---
EXAM DATE: 08/13/2018 12:15 PM EST AGE/SEX: 48 years / Female INDICATIONS: . Numbness in feet and hands. CLINICAL DATA: This is the patient's sequela encounter. Patient reports that signs and symptoms have been present for > 1 year and indicates a pain score of 2/10. MEDICAL/SURGICAL HISTORY: Hypertension. . leg and arm [place] [facility] [place]. . TECHNIQUE: Multiplanar, multisequence examination of the brain was performed without and with 5.5 ml Gadavist (gadobutrol) contrast as a single exam dose. Patient experienced a contrast media reaction. Reaction consisted of hives Patient was treated with m ethylprednisolone (Solu-Medrol) IV FINDINGS: Cerebrum: The ventricles are normal for age. No evidence of midline shift, mass lesion, hemorrhage or acute infarction. No extraaxial fluid collections are seen. The pituitary gland and suprasellar cistern are normal in configuration. White Matter: No significant signal abnormalities are seen in the white matter. Posterior Fossa: The cerebellum and brainstem are intact. The 4th ventricle is midline. The cerebel lopontine angle is unremarkable. The cerebellar tonsils are normal in position. Diffusion Imaging: No focal areas of restricted diffusion are seen. No evidence of acute infarction . Extracranial: The visualized portions of the orbits and paranasal sinuses are unremarkable. Post Contrast: No abnormal areas of parenchymal or dural enhancement. No evidence of blood-brain ba rrier breakdown. CONCLUSION: 1. Negative MR Brain with and without contrast. 2. No evidence of acute infarct, hemorrhage, mass or edema. 3. No evidence of enhancing lesions. Electronically signed by: Doyle Marie MD 08/13/2018 12:35 PM EST
[2018-08-13 13:18] LABS: Beta HCG,Quantitative 2 mIU/mL (0-5); Folate 15.7 ng/mL (3.1-17.5); Free T4 (Free Thyroxine) 1.01 ng/dL (0.76-1.46)
--- NOTE | 2018-08-13 13:54 | MR ---
EXAM DATE: 08/13/2018 12:19 PM EST AGE/SEX: 48 years / Female INDICATIONS: . Numbness in feet and hands. CLINICAL DATA: This is the patient's sequela encounter. Patient reports that signs and symptoms have been present for > 1 year and indicates a pain score of 2/10. MEDICAL/SURGICAL HISTORY: Hypertension. . leg and arm surgery COMPARISON: . TECHNIQUE: Multiplanar, multisequence MRI of the thoracic spine was performed without and with 5.5 m l Gadavist (gadobutrol) contrast as a single exam dose. Patient experienced a contrast media reaction. Reaction consisted of hives Patient was treated with m ethylprednisolone (Solu-Medrol) IV FINDINGS: VERTEBRAE: Normal vertebral body height. Homogeneous marrow signal. ALIGNMENT: Normal. CORD: Normal position and configuration. No significant cord signal abnormality. POST-CONTRAST: No abnormal areas of enhancement are seen. T1-T2: Normal. T2-T3: The thecal sac has a normal diameter. No evidence of disc bulge or protrusion. T3-T4: The thecal sac has a normal diameter. No evidence of disc bulge or protrusion. T4-T5: The thecal sac has a normal diameter. No evidence of disc bulge or protrusion. T5-T6: The thecal sac has a normal diameter. No evidence of disc bulge or protrusion. T6-T7: The thecal sac has a normal diameter. No evidence of disc bulge or protrusion. T7-T8: Minimal left eccentric disc bulge. Central canal and neural foramina are patent. T8-T9: The thecal sac has a normal diameter. No evidence of disc bulge or protrusion. T9-T10: The thecal sac has a normal diameter. No evidence of disc bulge or protrusion. T10-T11: The thecal sac has a normal diameter. No evidence of disc bulge or protrusion. T11-T12: The thecal sac has a normal diameter. No evidence of disc bulge or protrusion. T12-L1: The thecal sac has a normal diameter. No evidence of disc bulge or protrusion. CONCLUSION: 1. Multilevel disc desiccation with minimal degenerative disc disease at T7-8. 2. Otherwise, unremarkable MRI examination of the thoracic spine. 3. Specifically, no evidence for abnormal enhancement or mass. Electronically signed by: Helio Gardner MD 08/13/2018 1:53 PM EST
[2018-08-13] MEDS ORDERED: PEG 3350/E-Lyte Soln 4000 ML Bottle PO ONE (16:00)
--- NOTE | 2018-08-13 18:43 | ECG ---
Date Performed: 08/13/2018 Time Performed: 03:15:22 PTAGE: 48 years EKG: SINUS TACHYCARDIA ABNORMAL RHYTHM ECG PREVIOUS TRACING : 08/12/2018 22.11 Since the previous tracing, no significant change noted DOCTOR: Bairon James Interpretating Date/Time 08/13/2018 18:42:53
--- NOTE | 2018-08-13 19:16 | ECG ---
Date Performed: 08/12/2018 Time Performed: 22:11:30 PTAGE: 48 years EKG: SINUS TACHYCARDIA ABNORMAL RHYTHM ECG PREVIOUS TRACING : 08/14/2014 22.04 Since the previous tracing, no significant change noted DOCTOR: Bairon James Interpretating Date/Time 08/13/2018 19:14:32
--- NOTE | 2018-08-13 20:36 | CT ---
EXAM DATE: 08/13/2018 8:26 PM EST AGE/SEX: 48 years / Female INDICATIONS: Lower abdominal pain. CLINICAL DATA: This is the patient's initial encounter. Patient reports that signs and symptoms have been present for > 1 year and indicates a pain score of 6/10. MEDICAL/SURGICAL HISTORY: Hypertension. section. ORAL CONTRAST: No oral contrast ingested. RADIATION DOSE: 6.64 CTDI (mGy) COMPARISON: No prior exams available for comparison. TECHNIQUE: Multiple contiguous axial images were obtained through the abdomen and pelvis following b olus infusion of 75 ml Omnipaque 350 (iohexol) nonionic water-soluble contrast as a single exam dos e. No oral contrast ingested. Using automated exposure control and adjustment of the mA and/or kV ac cording to patient size, radiation dose was kept as low as reasonably achievable to obtain optimal di agnostic quality images. DICOM format image data is available electronically for review and comparis on. FINDINGS: 12 mm diameter appendix with wall thickening. Minimal if any stranding in the adjacent fat, however. There is some fluid in the colon without obstruction or inflammatory changes. No free fluid or free a ir. No lymphadenopathy. Liver has slight fatty infiltration. No focal hepatic lesion. No ductal dilatation. Spleen, pancreas and adrenal glands are within normal limits. Scattered subcentimeter cysts are seen of both kidneys. There is a 3 mm nonobstructing stone of the right upper pole and a 2 mm nonobstructi ng stone of the left lower pole. No ureteral calculus or hydronephrosis/hydroureter on either side. 13 mm cyst seen of the left ovary. Visualized lung bases are clear. There are nonacute fractures of bilateral visualized lower ribs. No acute bony abnormality demonstrated. CONCLUSION: 1. Early or mild appendicitis possible in the proper clinical setting. 2. Liver is mild fatty infiltrated. 3. Scattered small benign cysts and tiny nonobstructing stones of each kidney. 4. Small left ovarian cyst, most likely physiologic. 5. Old bilateral rib fractures. No acute bony abnormality seen. Electronically signed by: Ron Ramirez MD 08/13/2018 8:35 PM EST
[2018-08-13] MEDS: LORazepam 1 MG Tablet PO PRN (23:41)
[2018-08-14] MEDS: Sod Chloride 0.9% Inj 1,000 ML IV.CONT SCH ×2 (05:48→18:27)
--- NOTE | 2018-08-14 07:27 | P.PNNEU ---
Subjective Active Medications: Active Medications Escitalopram Oxalate (Lexapro) 10 mg PO DAILY [facility] Last Admin: 08/13/18 09:30 Dose: 10 mg Flumazenil (Romazecon Inj) 0.2 mg IV.PUSH Q1M PRN PRN Reason: OVERSEDATION Haloperidol Lactate (Haldol Inj) 1 mg IV.PUSH Q15M PRN PRN Reason: for severe agitation Sodium Chloride (Ns Inj) 1,000 mls @ 100 mls/hr IV.CONT .Q10H [facility] Last Admin: 08/14/18 05:48 Dose: 100 mls/hr Lorazepam (Ativan) 1 mg PO Q4H PRN PRN Reason: for CIWA 8-10 Last Admin: 08/13/18 23:41 Dose: 1 mg Lorazepam (Ativan) 2 mg PO Q2H PRN PRN Reason: for CIWA 11-14 Lorazepam (Ativan Inj) 2 mg IV.PUSH Q2H PRN PRN Reason: for CIWA 11-14 Lorazepam (Ativan Inj) 2 mg IV.PUSH Q1H PRN PRN Reason: for CIWA 15-20 Lorazepam (Ativan Inj) 2 mg IV.PUSH Q15M PRN PRN Reason: for CIWA > 20 Lorazepam (Ativan Inj) 1 mg IV.PUSH Q4H PRN PRN Reason: for CIWA 8-10 Pantoprazole Sodium (Protonix Inj) 40 mg IV.PUSH BID [facility] Last Admin: 08/13/18 23:35 Dose: 40 mg Sodium Chloride (Ns Flush) 2 ml IV.FLUSH BID [facility] Last Admin: 08/13/18 23:36 Dose: 2 ml Sodium Chloride (Ns Flush) 2 ml IV.FLUSH PRN PRN PRN Reason: FLUSH AFTER USING IV ACCESS Thiamine HCl (Vitamin B1) 100 mg PO BID [facility] Last Admin: 08/13/18 23:37 Dose: 100 mg Allergies/Adverse Reactions: Allergies Allergy/AdvReac Type Severity Reaction Status Date / Time acetaminophen Allergy Severe Rash Verified 08/12/18 21:13 doxycycline Allergy Severe Rash Verified 08/12/18 21:13 minocycline Allergy Severe Rash Verified 08/12/18 21:13 morphine Allergy Severe HIVES Verified 08/12/18 21:13 ondansetron Allergy Severe HIVES Verified 08/12/18 21:13 penicillin G Allergy Severe Rash Verified 08/12/18 21:13 propoxyphene Allergy Severe Rash Verified 08/12/18 21:13 tigecycline Allergy Severe Rash Verified 08/12/18 21:13 Sulfa (Sulfonamide Allergy Unknown Nausea/Vomi Verified 08/12/18 21:13 Antibiotics) ting gadobutrol [From Gadavist] Allergy Hives Verified 08/13/18 12:20 Physical Exam Vital signs: Vital Signs 08/13/18 08:00 08/13/18 11:59 08/13/18 12:00 Temperature 98.7 F Pulse Rate 110 H 105 H Respiratory Rate 20 Blood Pressure 142/87 H Pulse Oximetry 98 100 08/13/18 15:15 08/13/18 20:00 08/14/18 00:00 Temperature 98.4 F 97.9 F 98.0 F Pulse Rate 105 H 103 H 106 H Respiratory Rate 16 17 17 Blood Pressure 147/100 H 137/99 H 133/88 Pulse Oximetry 90 L 97 97 08/14/18 04:00 Temperature 98.0 F Pulse Rate 101 H Respiratory Rate 17 Blood Pressure 113/75 Pulse Oximetry 97 Intake & Output 08/13/18 08/14/18 08/14/18 18:59 06:59 18:59 Intake Total 1000 / 1000 1999 Balance 1000 / 1000 1999 Intake: IV 1000 / 1000 1999 NS Inj 1,000 ML @ 100 mls/hr IV 1000 / 1000 1999 .CONT .Q10H [facility] Rx#:[id number] Oral 0 / 0 Narrative: still weak bilat finger ext gait cannot support weight Objective Laboratory Results - last 24 hr 08/12/18 08/13/18 08/13/18 22:27 07:51 07:51 Hgb 10.2 L D ESR 25 H Total Protein (PEP) Folate Free T4 Beta HCG, Quant Rheumatoid Factor Scrn Rheumatoid Factor Titer MTS Gel Crossmatch See Detail 08/13/18 08/13/18 08/13/18 12:04 15:30 23:16 Hgb 10.2 L 9.8 L ESR Total Protein (PEP) 7.5 Folate 15.7 Free T4 1.01 Beta HCG, Quant 2 Rheumatoid Factor Scrn Negative Rheumatoid Factor Titer Not Reportable MTS Gel Crossmatch Review/Management - Review/Management Plan: imp mri b c and t spine nl labs neg so far check cpk labs order LP ordered may have gbs
[2018-08-14] MEDS ORDERED: Chlorhexidine Gluconate 2% 1 Pack (2 Cloths) TOPICAL ONE (08:45)
[2018-08-14] MEDS ORDERED: Metoprolol Tartrate 25 MG Tablet PO ONE (08:45)
[2018-08-14] MEDS ORDERED: Sodium Chlor 0.9% Inj 500 ML IV.SIG SCH (09:00)
--- NOTE | 2018-08-14 10:34 | P.RAD ---
Post Procedure Progress Note - Pre Procedure Diagnosis (1) Peripheral neuropathy - Post Procedure Diagnosis (1) Peripheral neuropathy - Procedure Information Procedure Date: 08/14/18 Supervising Radiologist: Reilly Herrera MD Estimated blood loss (mL): 0 Anesthesia: Local, Conscious Sedation - Plan of Activity Patient to Unit: Other Patient Condition: Good Additional Comments: LP completed without difficulty. 8cc of clear CSF removed Full report to follow. See PACS Report for procedural detail/treatment.
[2018-08-14 10:35] LABS: Baso # (Auto) 0.1 th/mm3 (0.0-0.2); Baso % (Auto) 0.6 % (0.0-2.0); Eos % (Auto) 0.3 % (0.0-4.0); Hemoglobin 9.7 gm/dL (11.6-15.3); Lymph # (Auto) 2.8 th/mm3 (1.0-4.8); Lymph % (Auto) 24.1 % (9.0-44.0); Mean Corpuscular HGB Conc 32.3 % (32.0-36.0); Mean Corpuscular Hemoglobin 26.4 pg (27.0-34.0); Mean Corpuscular Volume 81.9 fL (80.0-100.0); Mean Platelet Volume 8.9 fL (7.0-11.0); Mono # (Auto) 1.2 th/mm3 (0.0-0.9); Mono % (Auto) 10.3 % (0.0-8.0); Neut # (Auto) 7.6 th/mm3 (1.8-7.7); Neut % (Auto) 64.7 % (16.0-70.0); Platelet Count 453 th/mm3 (150-450); Red Blood Count 3.67 mil/mm3 (4.00-5.30); Red Cell Distribution Width 20.7 % (11.6-17.2); White Blood Count 11.7 th/mm3 (4.0-11.0)
[2018-08-14 11:16] LABS: Albumin 3.7 g/dL (3.4-5.0); Anion Gap 11 meq/L (5-15); Aspartate Aminotransferase 13 U/L (15-37); Blood Urea Nitrogen 8 mg/dL (7-18); Calcium 9.3 mg/dL (8.5-10.1); Carbon Dioxide 25.6 meq/L (21.0-32.0); Chloride 107 meq/L (98-107); Glomerular Filtration Rate Greater Than 89 mL/min (>89); Glucose,Random 77 mg/dL (74-106); Magnesium 1.9 mg/dL (1.5-2.5); Potassium 3.2 meq/L (3.5-5.1); Sodium 144 meq/L (136-145)
[2018-08-14 11:31] LABS: Alanine Aminotransferase 15 U/L (10-53); Alkaline Phosphatase 77 U/L (45-117); Phosphorus 3.1 mg/dL (2.5-4.9); Total Protein 7.4 g/dL (6.4-8.2)
[2018-08-14 11:34] LABS: Creatine Kinase 29 U/L (26-192)
[2018-08-14 12:09] LABS: Lymphocytes, CSF 55 %; Monocytes,CSF 12 %; Neutrophils,CSF 11 %
[2018-08-14 12:10] LABS: RBC on Tube 1 182 /mm3
[2018-08-14 12:14] LABS: RBC on Tube 1 144 /mm3
[2018-08-14] MEDS: Pantoprazole Inj 40 MG Vial IV.PUSH SCH ×2 (12:30→20:56)
[2018-08-14] MEDS: Escitalopram 10 MG Tablet PO SCH (12:30)
[2018-08-14 13:07] LABS: Immunoglobulin A 207 mg/dL (78-430); Immunoglobulin G 859 mg/dL (670-1640)
[2018-08-14 13:17] LABS: Creatine Kinase 32 U/L (26-192); Immunoglobulin M 140 mg/dL (55-338)
[2018-08-14 13:20] LABS: Activated Partial Thrombo Time 22.3 sec (23.4-31.7); Prothrombin Time 10.5 sec (9.8-11.6)
--- NOTE | 2018-08-14 14:46 | P.PNIM ---
Subjective Interval history: Still feels weak. Denies dizziness and lightheadedness. no melena. Physical Exam Vital signs: Last Vital Signs Temp 98.2 F 08/14/18 12:33 Pulse 95 H 08/14/18 12:33 Resp 18 08/14/18 12:33 BP 133/97 H 08/14/18 12:33 Pulse Ox 99 08/14/18 12:33 Intake & Output 08/12/18 08/13/18 08/14/18 08/15/18 06:59 06:59 06:59 06:59 Intake Total 951 / 951 3000 / 3000 Balance 951 / 951 3000 / 3000 Weight 51.71 kg Results Labs CBC & Chem 7: 08/14/18 09:28 08/14/18 09:34 Imaging Imaging: Impressions Abdomen/Pelvis CT 08/13/18 00:00 CONCLUSION: 1. Early or mild appendicitis possible in the proper clinical setting. 2. Liver is mild fatty infiltrated. 3. Scattered small benign cysts and tiny nonobstructing stones of each kidney. 4. Small left ovarian cyst, most likely physiologic. 5. Old bilateral rib fractures. No acute bony abnormality seen. Assessment and Plan (1) Peripheral neuropathy: Code(s): G62.9 - Polyneuropathy, unspecified Status: Acute (2) Symptomatic anemia: Code(s): D64.9 - Anemia, unspecified Status: Acute Plan 48 yo F with h/o alcohol abuse, presenting with weakness/fatigue, paraesthesias. Found to have symtomatic anemia and peripheral neuropathy. 1.Symptomatic anemia- w/up in keeping with iron deficiency anemia. likely may be due to occult GI bleeding. s/p prbc transfusion. Hb increased appropriately from 6.7g/dl on admission, now 9.7g/dl. GI consult recommended EGD/[place], patient has not completed prep yet. 2. Peripheral neuropathy- etiology unclear but alcohol may be contributing. Neurology consult appreciated, MRI head,neck,Cervical and thoracic-spine did not explain her current symptoms. Labs-RPR negative, TSH mildly elevated,FT4 normal. SPEP/UPEP,HIV,CHAVEZ pending. concern for GBS and LP done- 3.H/o alcohol abuse-- no features to suggest withdrawal presently. continue prn CIWA protocol. 4.H/o HTN-BP within acceptable limits. Progress Note: Quality VTE Deep Vein Thrombosis/Pulmonary Embolism Present on Admission: No _ (1) Peripheral neuropathy Qualifiers: Peripheral neuropathy type: polyneuropathy, unspecified Qualified Code(s): G62.9 - Polyneuropathy, unspecified
--- NOTE | 2018-08-14 17:32 | GIPROC ---
[facility] [address] [facility]. [facility] [place], [address] EGD PROCEDURE REPORT EXAM DATE: 08/14/2018 PATIENT NAME: Aurelio Workman MR #: [id number] BIRTHDATE: 1970 ATTENDING: Estefania Varela MD ORDER #: [id number] SURGERY AID: Dax Saravia RN STATUS: inpatient INDICATIONS: The patient is a 48 yr old female here for an EGD due to anemia gi bleeding PROCEDURE PERFORMED: EGD w/ biopsy MEDICATIONS: Per Anesthesia and None. TOPICAL ANESTHETIC: none CONSENT: The patient understands the risks and benefits of the procedure and understands that these risks include, but are not limited to: sedation, allergic reaction, infection, perforation and/or bleeding. Alternative means of evaluation and treatment include, among others: physical exam, x-rays, and/or surgical intervention. The patient elects to proceed with this endoscopic procedure. medical equipment was checked for proper function. Hand hygiene and appropriate measures for infection prevention was taken. After the risks, benefits and alternatives of the procedure were thoroughly explained, Informed consent was verified, confirmed and timeout was successfully executed by the treatment team. The patient was anesthetized with topical anesthesia and the EC-[id number] (Pedi C) endoscope was introduced through the mouth and advanced to the second portion of the duodenum. Retroflexed views revealed a hiatal hernia The gastroscope was then slowly withdrawn and removed. Esophagitis distal esophagus-biopsy gastritis antrum/superficial ulcers -biopsy duodenum normal-biopsy. ADVERSE EVENTS: There were no complications. IMPRESSIONS: 1. Esophagitis distal esophagus-biopsy gastritis antrum/superficial ulcers -biopsy duodenum normal-biopsy 2. Retroflexed views revealed a hiatal hernia RECOMMENDATIONS: 1. Await biopsy results. Biopsy results will not be ready for 7-10 days. If you don't hear from us in two weeks, call our office for biopsy results. 2. Admit to hospital 3. Start PPI 4. Avoid NSAIDS 5. Colonoscopy in am if agrees PATIENT CONDITION: stable DISPOSITION: Inpatient REPEAT EXAM: Return 3 months EGD Estefania Varela MD eSigned: Estefania Varela MD 08/14/2018 5:32 PM cc: PATIENT NAME: Aurelio Workman MR#: [id number]
[2018-08-14] MEDS ORDERED: Magnesium Citrate Liq 300 ML Bottle PO ONE ×3 (17:37→20:00)
[2018-08-14] MEDS ORDERED: Ibuprofen 400 MG Tablet PO ONE (22:15)
[2018-08-15] MEDS: Sod Chloride 0.9% Inj 1,000 ML IV.CONT SCH ×2 (03:49→12:15)
[2018-08-15] MEDS ORDERED: Lidocaine PF 1% Inj 5 ML Syringe OTHER ONE (09:11)
[2018-08-15] MEDS ORDERED: Phenylephrine/NS 1000 MCG/10ML Syringe IV.PUSH ONE (09:11)
--- NOTE | 2018-08-15 09:38 | GIPROC ---
[facility] [address] [facility]. [facility], [address] COLONOSCOPY PROCEDURE REPORT EXAM DATE: 08/15/2018 PATIENT NAME: Aurelio Workman MR #: [id number] BIRTHDATE: 1970 ENDOSCOPIST: Estefania Varela MD ORDER #: [id number] DINKEY ENGINE FIRER: Anshu Johnson and Yessy Good STATUS: inpatient INDICATIONS: The patient is a 48 yr old female here for a colonoscopy due to anemia, gi bleeding PROCEDURE PERFORMED: Colonoscopy, diagnostic Colonoscopy with biopsy MEDICATIONS: Per Anesthesia and None. PREP QUALITY: good PREP TYPE:Other: ESTIMATED BLOOD LOSS: None CONSENT: The patient understands the risks and benefits of the procedure and understands that these risks include, but are not limited to: sedation, allergic reaction, infection, perforation and/or bleeding. Alternative means of evaluation and treatment include, among others: physical exam, x-rays, and/or surgical intervention. The patient elects to proceed with this endoscopic procedure. medical equipment was checked for proper function. Hand hygiene and appropriate measures for infection prevention was taken. After the risks, benefits and alternatives of the procedure were thoroughly explained, Informed consent was verified, confirmed and timeout was successfully executed by the treatment team. A digital exam revealed hemorrhoids The Pentax [id number] endoscope was introduced through the anus and advanced to the cecum, which was identified by both the appendix and ileocecal valve. The instrument was then slowly withdrawn as the colon was fully examined. COLON FINDINGS: Polyp diminutive descending -cold biopsy with complete removal. Retroflexed views revealed internal hemorrhoids and Retroflexed views revealed small internal hemorrhoids The scope was then completely withdrawn from the patient and the procedure terminated. PROCEDURE WITHDRAWAL TIME:6minutes ADVERSE EVENTS: There were no complications. IMPRESSIONS: 1. Polyp diminutive descending -cold biopsy with complete removal 2. Retroflexed views revealed internal hemorrhoids 3. Retroflexed views revealed small internal hemorrhoids 4. Revealed hemorrhoids RECOMMENDATIONS: 1. Await biopsy results. Biopsy results will not be ready for 7-10 days. If you don't hear from us in two weeks, call our office for results. 2. Benefiber 2 tsp daily 3. Probiotics from any [employer] or health food store 4. Yearly rectal exams 5. Ok to hi home from gi point avoid nsaids, etoh iron supplementation if dc fu gi in 2 weeks if still anemic capsule endoscopy RECALL: Return 5 years Colonoscopy Estefania Varela MD eSigned: Estefania Varela MD 08/15/2018 9:38 AM cc: PATIENT NAME: Aurelio Workman MR#: [id number]
[2018-08-15] MEDS: Escitalopram 10 MG Tablet PO SCH (10:28)
[2018-08-15] MEDS: Pantoprazole Inj 40 MG Vial IV.PUSH SCH (10:28)
--- NOTE | 2018-08-15 11:22 | P.PNIM ---
Subjective Interval history: No overnight events. Globin stable. Still with weakness, stable, not worse. No nausea or vomiting. Physical Exam Vital signs: Vital Signs 08/14/18 12:33 08/14/18 17:40 08/14/18 18:42 Temperature 98.2 F 97.9 F Pulse Rate 95 H 92 H Respiratory Rate 18 18 Blood Pressure 133/97 H 132/81 Pulse Oximetry 99 100 100 08/14/18 19:00 08/14/18 20:00 08/14/18 23:47 Temperature 98.0 F 98.2 F Pulse Rate 97 H 92 H 90 Respiratory Rate 18 17 Blood Pressure 148/97 H 142/90 H Pulse Oximetry 97 96 08/15/18 00:00 08/15/18 03:45 08/15/18 03:50 Temperature 98.4 F Pulse Rate 87 74 Respiratory Rate 16 18 Blood Pressure 135/76 Pulse Oximetry 98 08/15/18 04:00 08/15/18 08:00 08/15/18 09:46 Temperature 98 F 98.6 F 97.6 F Pulse Rate 85 95 H 80 Respiratory Rate 17 18 16 Blood Pressure 137/85 141/87 H 125/87 Pulse Oximetry 96 97 96 Intake & Output 08/14/18 08/15/18 08/15/18 18:59 06:59 18:59 Intake Total 1200 / 1200 240 / 240 700 / 700 Balance 1200 / 1200 240 / 240 700 / 700 Weight 59 kg Intake: IV 1000 / 1000 500 / 500 NS Inj 1,000 ML @ 100 mls/hr IV 1000 / 1000 500 / 500 .CONT .Q10H [facility] Rx#:[id number] Oral 240 / 240 Anesthesia Amount 200 / 200 200 / 200 Other: # Voids 4 # Bowel Movements 4 Narrative: GENERAL: Awake and alert. No acute distress. CHEST: Lungs clear to auscultation bilaterally with no wheezing or rhonchi. No respiratory distress. CARDIOVASCULAR: Regular rate and rhythm. No murmurs ABDOMEN: Soft, nontender, nondistended. EXTREMITIES: No cyanosis or edema. Alert awake and oriented x3, positive for generalized weakness especially bilateral upper extremities and bilateral lower extremities Results - Labs CBC & Chem 7: 08/15/18 06:17 08/14/18 09:34 Laboratory Results - last 24 hr 11/07/18 11/08/18 11/08/18 12:04 09:34 09:34 Hgb PT INR APTT Phosphorus 3.1 Total Bilirubin 0.6 ALT 15 Alkaline Phosphatase 77 Total Creatine Kinase 29 32 Total Protein 7.4 D Albumin (PEP) 4.31 Albumin/Globulin Ratio 1.35 L Eclwi-9-Xqinovutd 0.26 Ejxnr-7-Dzckqpvki 1.01 H Beta Globulins 0.98 Gamma Globulins 0.95 PEP Pathologist Comment CSF Volume (1) CSF Supernat Color (1) CSF Gross Blood (1) CSF WBC (1) CSF RBC (1) CSF Volume (2) CSF Supernat Color (2) CSF Gross Blood (2) CSF Volume (3) CSF Supernat Color (3) CSF Gross Blood (3) CSF Volume (4) CSF Supernat Color (4) CSF Gross Blood (4) CSF Neutrophils % CSF Lymphocytes % CSF Monocytes % CSF Histiocytes CSF Total Protein IgG 859 IgA 207 IgM 140 HIV 1&2 Ab/P24 Ag 4thGn 08/14/18 08/14/18 08/14/18 09:34 10:13 10:13 Hgb PT INR APTT Phosphorus Total Bilirubin ALT Alkaline Phosphatase Total Creatine Kinase Total Protein Albumin (PEP) Albumin/Globulin Ratio Gvvav-4-Csghnicid Snmbr-7-Vlakpfhvn Beta Globulins Gamma Globulins PEP Pathologist Comment CSF Volume (1) 1.8 CSF Supernat Color (1) Clear CSF Gross Blood (1) Trace CSF WBC (1) 44 H 30 H CSF RBC (1) 182 H 144 H CSF Volume (2) 1.0 CSF Supernat Color (2) Clear CSF Gross Blood (2) Trace CSF Volume (3) 1.5 CSF Supernat Color (3) Clear CSF Gross Blood (3) Trace CSF Volume (4) 1.0 CSF Supernat Color (4) Clear CSF Gross Blood (4) Trace CSF Neutrophils % 11 CSF Lymphocytes % 55 CSF Monocytes % 12 CSF Histiocytes 22 CSF Total Protein IgG IgA IgM HIV 1&2 Ab/P24 Ag 4thGn Nonreactive 08/14/18 08/14/18 08/15/18 10:13 11:55 06:17 Hgb 9.1 L PT 10.5 INR 1.0 APTT 22.3 L Phosphorus Total Bilirubin ALT Alkaline Phosphatase Total Creatine Kinase Total Protein Albumin (PEP) Albumin/Globulin Ratio Aduuk-5-Qiemogvmz Oyigq-8-Ottmjobqn Beta Globulins Gamma Globulins PEP Pathologist Comment CSF Volume (1) CSF Supernat Color (1) CSF Gross Blood (1) CSF WBC (1) CSF RBC (1) CSF Volume (2) CSF Supernat Color (2) CSF Gross Blood (2) CSF Volume (3) CSF Supernat Color (3) CSF Gross Blood (3) CSF Volume (4) CSF Supernat Color (4) CSF Gross Blood (4) CSF Neutrophils % CSF Lymphocytes % CSF Monocytes % CSF Histiocytes CSF Total Protein 31.2 IgG IgA IgM HIV 1&2 Ab/P24 Ag 4thGn Microbiology 08/14/18 10:13 Lumbar Puncture Gram Stain - Final 08/14/18 10:13 Lumbar Puncture CSF Culture - Preliminary No growth in 24 hours Assessment and Plan - Assessment (1) Peripheral neuropathy Code(s): G62.9 - Polyneuropathy, unspecified Status: Acute (2) Symptomatic anemia Code(s): D64.9 - Anemia, unspecified Status: Acute - Plan 48 yo F with h/o alcohol abuse, presenting with weakness/fatigue, paraesthesias. Found to have symtomatic anemia and peripheral neuropathy. Symptomatic anemia-w/up in keeping with iron deficiency anemia. likely may be due to occult GI bleeding.s/p prbc transfusion. GI was on board, EGD and colonoscopy done. EGD showed esophagitis, gastritis and superficial ulceration. Colonoscopy showed hemorrhoids and polyps. No NSAIDs. GI signed off. Continue Protonix, switch to oral. Peripheral neuropathy with weakness-? Alcohol induced. MRI of the brain, cervical and thoracic spine done, unremarkable. Neurology is following. Status post workup including LP. Awaiting neurology input. Rule out GBS. Patient denies any headache. H/o alcohol abuse--no features to suggest withdrawal presently. continue prn CIWA protocol. h/o HTN-BP within acceptable limits. DVT prophylaxis: Contraindicated, avoid with anemia. (1) Peripheral neuropathy Qualifiers: Peripheral neuropathy type: polyneuropathy, unspecified Qualified Code(s): G62.9 - Polyneuropathy, unspecified
--- NOTE | 2018-08-15 14:16 | P.CONGS ---
[facility] Gen Surgery Consult Note Consult date: 08/15/18 Narrative: 48 yo F presented with weakness, headache, fatigue and noted to have symptomatic anemia. She has subsequently undergone EGD and colonoscopy which revealed superficial ulcerations of the stomach. CT of the abdomen and pelvis on admission revealed possible dilated appendix of 13 mm. The patient denies abdominal pain nausea vomiting or difficulty eating. She reportedly does have a history of alcohol abuse. Past surgical history includes section. Review of Systems All other systems reviewed negative except as stated in [facility] - History History Provided By: Patient - Medical History Medical History: Medical History (Last Reviewed 08/15/18 @ 08:34 by Gabriela Denson) Hypertension - Surgical History Surgical History: Surgical History (Last Updated 08/15/18 @ 14:12 by Rolando Blackburn MD) History of orthopedic surgery Previous section - Family History Family History: Family History (Last Updated 08/13/18 @ 00:40 by Reggie Miller MD) Mother Cancer Father Diabetes - Tobacco History Second Hand Smoke Exposure: No Smoking Status: Never smoker - Alcohol History How Often Do You Have a Drink Containing Alcohol: 4 or more times a week - Substance Use History Substance History: Active Abuse - Substance Use Type Alcohol Type: vodka Status: Active Route Used: By Mouth Frequency: 1/2 gallon every couple days Reason for Use: Calm Down, Sleep, Socialization Comment: for pain control - Travel History Recent Travel in the [place] Within the Last 8 Weeks: No Recent Travel Out of the Country Within the Last 8 Weeks: No - Immunization History Tetanus Immunization: Unsure Hx Influenza Vaccine This Season: No Medications and Allergies Active Medications: Active Medications Escitalopram Oxalate (Lexapro) 10 mg PO DAILY [facility] Last Admin: 08/15/18 10:28 Dose: 10 mg Flumazenil (Romazecon Inj) 0.2 mg IV.PUSH Q1M PRN PRN Reason: OVERSEDATION Haloperidol Lactate (Haldol Inj) 1 mg IV.PUSH Q15M PRN PRN Reason: for severe agitation Sodium Chloride (Ns Inj) 1,000 mls @ 100 mls/hr IV.CONT .Q10H [facility] Last Infusion: 08/15/18 10:34 Dose: 100 mls/hr Lorazepam (Ativan) 1 mg PO Q4H PRN PRN Reason: for CIWA 8-10 Last Admin: 08/13/18 23:41 Dose: 1 mg Lorazepam (Ativan) 2 mg PO Q2H PRN PRN Reason: for CIWA 11-14 Lorazepam (Ativan Inj) 2 mg IV.PUSH Q2H PRN PRN Reason: for CIWA 11-14 Lorazepam (Ativan Inj) 2 mg IV.PUSH Q1H PRN PRN Reason: for CIWA 15-20 Lorazepam (Ativan Inj) 2 mg IV.PUSH Q15M PRN PRN Reason: for CIWA > 20 Lorazepam (Ativan Inj) 1 mg IV.PUSH Q4H PRN PRN Reason: for CIWA 8-10 Pantoprazole Sodium (Protonix Inj) 40 mg IV.PUSH BID [facility] Last Admin: 08/15/18 10:28 Dose: 40 mg Potassium Chloride (K-Dur) 40 meq PO DAILY [facility] Last Admin: 08/15/18 10:28 Dose: 40 meq Sodium Chloride (Ns Flush) 2 ml IV.FLUSH BID [facility] Last Admin: 08/15/18 10:28 Dose: 2 ml Sodium Chloride (Ns Flush) 2 ml IV.FLUSH PRN PRN PRN Reason: FLUSH AFTER USING IV ACCESS Thiamine HCl (Vitamin B1) 100 mg PO BID [facility] Last Admin: 08/15/18 10:29 Dose: 100 mg Allergies Allergy/AdvReac Type Severity Reaction Status Date / Time acetaminophen Allergy Severe Rash Verified 08/12/18 21:13 doxycycline Allergy Severe Rash Verified 08/12/18 21:13 minocycline Allergy Severe Rash Verified 08/12/18 21:13 morphine Allergy Severe HIVES Verified 08/12/18 21:13 ondansetron Allergy Severe HIVES Verified 08/12/18 21:13 penicillin G Allergy Severe Rash Verified 08/12/18 21:13 propoxyphene Allergy Severe Rash Verified 08/12/18 21:13 tigecycline Allergy Severe Rash Verified 08/12/18 21:13 Sulfa (Sulfonamide Allergy Unknown Nausea/Vomi Verified 08/12/18 21:13 Antibiotics) ting gadobutrol [From Gadavist] Allergy Hives Verified 08/13/18 12:20 Home Medications Medication Instructions Recorded Confirmed Type lisinopril 20 mg PO DAILY 08/12/18 08/12/18 History Exam Vital signs: Vital Signs 08/14/18 17:40 08/14/18 18:42 08/14/18 19:00 Temperature 97.9 F 98.0 F Pulse Rate 92 H 97 H Respiratory Rate 18 18 Blood Pressure 132/81 148/97 H Pulse Oximetry 100 100 97 08/14/18 20:00 08/14/18 23:47 08/15/18 00:00 Temperature 98.2 F 98.4 F Pulse Rate 92 H 90 87 Respiratory Rate 17 16 Blood Pressure 142/90 H 135/76 Pulse Oximetry 96 98 08/15/18 03:45 08/15/18 03:50 08/15/18 04:00 Temperature 98 F Pulse Rate 74 85 Respiratory Rate 18 17 Blood Pressure 137/85 Pulse Oximetry 96 08/15/18 08:00 08/15/18 09:46 08/15/18 12:00 Temperature 98.6 F 97.6 F 98.0 F Pulse Rate 90 80 93 H Respiratory Rate 18 16 18 Blood Pressure 141/87 H 125/87 127/83 Pulse Oximetry 97 96 100 Intake & Output 08/14/18 08/15/18 08/15/18 18:59 06:59 18:59 Intake Total 1200 / 1200 240 / 240 700 / 700 Balance 1200 / 1200 240 / 240 700 / 700 Weight 59 kg Intake: IV 1000 / 1000 500 / 500 NS Inj 1,000 ML @ 100 mls/hr IV 1000 / 1000 500 / 500 .CONT .Q10H [facility] Rx#:[id number] Oral 240 / 240 Anesthesia Amount 200 / 200 200 / 200 Other: # Voids 4 # Bowel Movements 4 Narrative: GENERAL: Awake and alert. No acute distress. Cooperative. Appears older than stated age. HEAD: Normocephalic. Atraumatic. EYES: Pupils equal round and reactive to light bilaterally. No scleral icterus. ENT: Moist oral mucosa. NECK: Trachea midline. CHEST: Lungs clear to auscultation bilaterally with no wheezing or rhonchi. No respiratory distress. CARDIOVASCULAR: Regular rate and rhythm. ABDOMEN: Soft, nontender, nondistended. EXTREMITIES: No cyanosis or edema. SKIN: Warm, dry, nonjaundiced. Pale. Results - Labs 08/15/18 06:17 08/14/18 09:34 Laboratory Results - last 24 hr 08/13/18 08/14/18 08/14/18 12:04 09:34 10:13 Hgb Ferritin Ammonia Albumin (PEP) 4.31 Albumin/Globulin Ratio 1.35 L Mksxk-2-Ofvigsxfp 0.26 Pqmwr-3-Npbslrebw 1.01 H Beta Globulins 0.98 Gamma Globulins 0.95 PEP Pathologist Comment CSF Herpes I DNA (PCR) Negative CSF Herpes II DNA (PCR) Negative IgE 310.0 H 08/15/18 08/15/18 08/15/18 06:17 11:25 11:28 Hgb 9.1 L Ferritin 10 Ammonia 13 Albumin (PEP) Albumin/Globulin Ratio Xqhlb-0-Xwrtqcmqt Zkilj-9-Tmkjumfvu Beta Globulins Gamma Globulins PEP Pathologist Comment CSF Herpes I DNA (PCR) CSF Herpes II DNA (PCR) IgE - Imaging Imaging: ITS Impressions Cervical Spine CT 08/12/18 21:45 CONCLUSION: 1. No fracture or subluxation of the cervical spine. 2. Mild degenerative changes at C5/C6. Head CT 08/12/18 21:45 CONCLUSION: Negative noncontrast head CT. . Abdomen/Pelvis CT 08/13/18 00:00 CONCLUSION: 1. Early or mild appendicitis possible in the proper clinical setting. 2. Liver is mild fatty infiltrated. 3. Scattered small benign cysts and tiny nonobstructing stones of each kidney. 4. Small left ovarian cyst, most likely physiologic. 5. Old bilateral rib fractures. No acute bony abnormality seen. Cervical Spine MRI 08/13/18 09:07 CONCLUSION: 1. Degenerative disc disease at C4-5 and C5-6 with resultant moderate central canal narrowing at C5-6 level. 2. Moderate to severe left neural foraminal narrowing secondary to osteophytes at C5-6. 3. No cord signal abnormality or abnormal enhancement/mass. Head MRI 08/13/18 09:07 CONCLUSION: 1. Negative MR Brain with and without contrast. 2. No evidence of acute infarct, hemorrhage, mass or edema. 3. No evidence of enhancing lesions. Thoracic Spine MRI 08/13/18 09:07 CONCLUSION: 1. Multilevel disc desiccation with minimal degenerative disc disease at T7-8. 2. Otherwise, unremarkable MRI examination of the thoracic spine. 3. Specifically, no evidence for abnormal enhancement or mass. CT scan - abdomen: report reviewed, image reviewed CT scan - pelvis: report reviewed, image reviewed Assessment and Plan - Assessment (1) Appendix disease Code(s): K38.9 - Disease of appendix, unspecified Status: Acute (2) Symptomatic anemia Code(s): D64.9 - Anemia, unspecified Status: Acute - Plan Appendix is possibly abnormal based on imaging. I did discuss this in person with Dr. Marie of radiology who feels that it is questionable appendix dilation versus small bowel. Due to the patient's lack of symptoms I am not concerned that she has appendicitis. There is a low risk of a malignancy although she did have colonoscopy with no mass or drainage from the appendiceal orifice. I recommend CT of the abdomen and pelvis with IV and oral contrast in 6 weeks and follow-up with me at that time. I discussed this in detail with the patient and she understands.
[2018-08-15 14:38] LABS: Hepatitis A IgM Antibody Nonreactive (Nonreactive); Hepatitits B Surface Antigen Nonreactive (Nonreactive)
[2018-08-15 15:35] LABS: Anti-Nuclear Antibody Screen Neg (Neg)
[2018-08-16] MEDS: LORazepam 1 MG Tablet PO PRN (06:36)
[2018-08-16] MEDS: Escitalopram 10 MG Tablet PO SCH (10:03)
--- NOTE | 2018-08-16 10:20 | P.PNNEU ---
Subjective Active Medications: Active Medications Escitalopram Oxalate (Lexapro) 10 mg PO DAILY [facility] Last Admin: 08/16/18 10:03 Dose: 10 mg Flumazenil (Romazecon Inj) 0.2 mg IV.PUSH Q1M PRN PRN Reason: OVERSEDATION Haloperidol Lactate (Haldol Inj) 1 mg IV.PUSH Q15M PRN PRN Reason: for severe agitation Lorazepam (Ativan) 1 mg PO Q4H PRN PRN Reason: for CIWA 8-10 Last Admin: 08/16/18 06:36 Dose: 1 mg Lorazepam (Ativan) 2 mg PO Q2H PRN PRN Reason: for CIWA 11-14 Lorazepam (Ativan Inj) 2 mg IV.PUSH Q2H PRN PRN Reason: for CIWA 11-14 Lorazepam (Ativan Inj) 2 mg IV.PUSH Q1H PRN PRN Reason: for CIWA 15-20 Lorazepam (Ativan Inj) 2 mg IV.PUSH Q15M PRN PRN Reason: for CIWA > 20 Lorazepam (Ativan Inj) 1 mg IV.PUSH Q4H PRN PRN Reason: for CIWA 8-10 Pantoprazole Sodium (Protonix) 40 mg PO BID [facility] Last Admin: 08/16/18 10:04 Dose: 40 mg Potassium Chloride (K-Dur) 40 meq PO DAILY [facility] Last Admin: 08/16/18 10:04 Dose: 40 meq Sodium Chloride (Ns Flush) 2 ml IV.FLUSH BID [facility] Last Admin: 08/16/18 10:04 Dose: 2 ml Sodium Chloride (Ns Flush) 2 ml IV.FLUSH PRN PRN PRN Reason: FLUSH AFTER USING IV ACCESS Thiamine HCl (Vitamin B1) 100 mg PO BID [facility] Last Admin: 08/16/18 10:03 Dose: 100 mg Allergies/Adverse Reactions: Allergies Allergy/AdvReac Type Severity Reaction Status Date / Time acetaminophen Allergy Severe Rash Verified 08/12/18 21:13 doxycycline Allergy Severe Rash Verified 08/12/18 21:13 minocycline Allergy Severe Rash Verified 08/12/18 21:13 morphine Allergy Severe HIVES Verified 08/12/18 21:13 ondansetron Allergy Severe HIVES Verified 08/12/18 21:13 penicillin G Allergy Severe Rash Verified 08/12/18 21:13 propoxyphene Allergy Severe Rash Verified 08/12/18 21:13 tigecycline Allergy Severe Rash Verified 08/12/18 21:13 Sulfa (Sulfonamide Allergy Unknown Nausea/Vomi Verified 08/12/18 21:13 Antibiotics) ting gadobutrol [From Gadavist] Allergy Hives Verified 08/13/18 12:20 Physical Exam Vital signs: Vital Signs 08/15/18 12:00 08/15/18 14:42 08/15/18 16:00 Temperature 98.0 F Pulse Rate 93 H 101 H Respiratory Rate 18 Blood Pressure 127/83 Pulse Oximetry 100 99 08/15/18 20:00 08/16/18 00:00 08/16/18 01:08 Temperature 98.8 F 98.7 F Pulse Rate 80 111 H Respiratory Rate 16 16 Blood Pressure 143/92 H 121/70 Pulse Oximetry 97 98 08/16/18 04:00 08/16/18 08:00 Temperature 98.8 F 98.7 F Pulse Rate 78 86 Respiratory Rate 16 18 Blood Pressure 138/87 Pulse Oximetry 142 H 100 Intake & Output 08/15/18 08/16/18 08/16/18 18:59 06:59 18:59 Intake Total 1200 / 1200 120 / 120 Output Total 400 / 400 Balance 1200 / 1200 -280 / -280 Weight 57.4 kg Intake: IV 1000 / 1000 NS Inj 1,000 ML @ 100 mls/hr IV 1000 / 1000 .CONT .Q10H [facility] Rx#:[id number] Oral 0 / 0 120 / 120 Anesthesia Amount 200 / 200 Output: Urine 400 / 400 Other: # Voids 6 Date of Last Bowel Movement 08/14/18 # Bowel Movements 2 Narrative: still unable to walk and on testing 4+-5-/5 bilat le in bed and 4-/5 bilat finger ext not great historian Objective Laboratory Results - last 24 hr 08/13/18 08/14/18 08/14/18 12:04 09:34 09:34 Ferritin Ammonia CSF Lyme Disease DNA CSF Herpes I DNA (PCR) CSF Herpes II DNA (PCR) IgE 310.0 H [facility] Screen Neg Hepatitis A IgM Ab Hep Bs Antigen Hep B Core IgM Ab Hep C IgG Ab M. pneumoniae Interp . Mycoplasma pneumon IgG Positive Mycoplasma pneumon IgM Negative 08/14/18 08/14/18 08/15/18 10:13 10:13 11:25 Ferritin Ammonia 13 CSF Lyme Disease DNA Not detected CSF Herpes I DNA (PCR) Negative CSF Herpes II DNA (PCR) Negative IgE [facility] Screen Hepatitis A IgM Ab Hep Bs Antigen Hep B Core IgM Ab Hep C IgG Ab M. pneumoniae Interp Mycoplasma pneumon IgG Mycoplasma pneumon IgM 08/15/18 08/15/18 11:25 11:28 Ferritin 10 Ammonia CSF Lyme Disease DNA CSF Herpes I DNA (PCR) CSF Herpes II DNA (PCR) IgE [facility] Screen Hepatitis A IgM Ab Nonreactive Hep Bs Antigen Nonreactive Hep B Core IgM Ab Reactive H Hep C IgG Ab Nonreactive M. pneumoniae Interp Mycoplasma pneumon IgG Mycoplasma pneumon IgM Microbiology 08/14/18 10:13 Gram Stain - Final Lumbar Puncture CSF Culture - Preliminary No growth in 48 hours 08/14/18 10:13 Acid Fast Bacilli Smear - Final Fluid - Other No acid fast bacilli seen 08/14/18 10:13 Fungal Smear - Final Fluid - Other No fungal elements seen Review/Management - Review/Management Plan: imp mri b c and t spine nl labs neg so far check cpk labs order LP ordered may have gbs 08/16/18 no change still dificulty walking and bilat finger ext very weak cpk and lp neg nl protein but 30 wbc lymph needs emg and will try ivig for possible cidp as she tells me that she has had trouble walking for 10 yrs now PT sq hep
[2018-08-16] MEDS ORDERED: IVIG (Immune Globulin) Inj 25 GM in Syringe/Bag 1 EACH IV.SIG SCH (10:30)
[2018-08-16] MEDS: Heparin - SQ 10,000 UNITS/ML Vial SQ SCH ×2 (12:30→21:52)
--- NOTE | 2018-08-16 15:09 | P.PN ---
Subjective Interval history: In bed appears in nad Per nurse patient is falling Patient says she feel weak in her legs. Says she was taking gabapentin in the past which seems to help. No change in vision, No lightheadedness. No n/v/d/c Physical Exam Vital signs: Vital Signs 08/15/18 16:00 08/15/18 20:00 08/16/18 00:00 Temperature 98.8 F 98.7 F Pulse Rate 101 H 80 111 H Respiratory Rate 16 16 Blood Pressure 143/92 H Pulse Oximetry 97 08/16/18 01:08 08/16/18 04:00 08/16/18 08:00 Temperature 98.8 F 98.7 F Pulse Rate 78 77 Respiratory Rate 16 18 Blood Pressure 121/70 138/87 Pulse Oximetry 98 142 H 100 08/16/18 10:00 08/16/18 12:00 08/16/18 12:55 Temperature 98.3 F 98.3 F 97.5 F L Pulse Rate 92 H 102 H 98 H Respiratory Rate 18 18 18 Blood Pressure 147/94 H 147/94 H 141/96 H Pulse Oximetry 100 100 99 Intake & Output 08/15/18 08/16/18 08/16/18 18:59 06:59 18:59 Intake Total 1200 / 1200 120 / 120 Output Total 400 / 400 Balance 1200 / 1200 -280 / -280 Weight 57.4 kg Intake: IV 1000 / 1000 NS Inj 1,000 ML @ 100 mls/hr IV 1000 / 1000 .CONT .Q10H [facility] Rx#:[id number] Oral 0 / 0 120 / 120 Anesthesia Amount 200 / 200 Output: Urine 400 / 400 Other: # Voids 6 Date of Last Bowel Movement 08/14/18 # Bowel Movements 2 Narrative: GENERAL: Awake and alert. No acute distress. CHEST: Lungs clear to auscultation bilaterally with no wheezing or rhonchi. No respiratory distress. CARDIOVASCULAR: Regular rate and rhythm. No murmurs ABDOMEN: Soft, nontender, nondistended. EXTREMITIES: No cyanosis or edema. Alert awake and oriented x3, positive for generalized weakness especially bilateral upper extremities and bilateral lower extremities Results - Labs CBC & Chem 7: 08/15/18 06:17 08/14/18 09:34 Laboratory Results - last 24 hr 08/13/18 08/14/18 08/14/18 12:04 09:34 10:13 CSF Lyme Disease DNA Not detected [facility] Screen Neg M. pneumoniae Interp . Mycoplasma pneumon IgG Positive Mycoplasma pneumon IgM Negative Microbiology 08/14/18 10:13 Lumbar Puncture Gram Stain - Final 08/14/18 10:13 Lumbar Puncture CSF Culture - Preliminary No growth in 48 hours 08/14/18 10:13 Fluid - Other Acid Fast Bacilli Smear - Final No acid fast bacilli seen 08/14/18 10:13 Fluid - Other Fungal Smear - Final No fungal elements seen Assessment and Plan - Assessment (1) Peripheral neuropathy Code(s): G62.9 - Polyneuropathy, unspecified Status: Acute (2) Symptomatic anemia Code(s): D64.9 - Anemia, unspecified Status: Acute - Plan 48 yo F with h/o alcohol abuse, presenting with weakness/fatigue, paraesthesias. Found to have symtomatic anemia and peripheral neuropathy. Symptomatic anemia-w/up in keeping with iron deficiency anemia. likely may be due to occult GI bleeding.s/p prbc transfusion. GI was on board, EGD and colonoscopy done. EGD showed esophagitis, gastritis and superficial ulceration. Colonoscopy showed hemorrhoids and polyps. No NSAIDs. GI signed off. Continue Protonix, switch to oral. Peripheral neuropathy with weakness-? Alcohol induced. MRI of the brain, cervical and thoracic spine done, unremarkable. Neurology is following. Status post workup including LP. Awaiting neurology input. Rule out GBS. Patient denies any headache. no change in vision. Poss IVIG treatment per neuro LP pending but so far no sighs of infection H/o alcohol abuse--no features to suggest withdrawal presently. continue prn CIWA protocol. h/o HTN-BP within acceptable limits. DVT prophylaxis: Contraindicated, avoid with anemia. DC plan DC when improves and cleared by neuro (1) Peripheral neuropathy Qualifiers: Peripheral neuropathy type: polyneuropathy, unspecified Qualified Code(s): G62.9 - Polyneuropathy, unspecified
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
[2018-08-16 20:09] LABS: Bacteria,Urine Rare /hpf; Bilirubin,Urine Negative (Negative); Clarity,Urine Clear (Clear); Glucose,Urine (UA) Negative (Negative); Leukocyte Esterase,Urine Negative (Negative); Nitrite,Urine Negative (Negative); Specific Gravity,Urine 1.004 (1.002-1.035); Squamous Epithelial Cell,Urine 1 /hpf (0-5)
[2018-08-16 20:10] LABS: Color,Urine Straw (Yellw/Straw)
[2018-08-16] MEDS: Sodium Chlor 0.9% Inj 500 ML IV.SIG SCH (20:21)
[2018-08-16] MEDS: IVIG (Immune Globulin) Inj 25 GM in Syringe/Bag 1 EACH IV.SIG SCH (21:42)
[2018-08-17 07:12] LABS: Anion Gap 8 meq/L (5-15); Blood Urea Nitrogen 8 mg/dL (7-18); Calcium 8.7 mg/dL (8.5-10.1); Carbon Dioxide 24.6 meq/L (21.0-32.0); Chloride 108 meq/L (98-107); Glomerular Filtration Rate Greater Than 89 mL/min (>89); Glucose,Random 93 mg/dL (74-106); Potassium 3.8 meq/L (3.5-5.1); Sodium 141 meq/L (136-145)
[2018-08-17] MEDS: Escitalopram 10 MG Tablet PO SCH (08:22)
[2018-08-17] MEDS: LORazepam 1 MG Tablet PO PRN ×2 (08:22→20:32)
[2018-08-17] MEDS: Heparin - SQ 10,000 UNITS/ML Vial SQ SCH ×2 (08:24→20:33)
--- NOTE | 2018-08-17 11:11 | P.PNIM ---
Subjective Interval history: complains of numbness and burning in her feet. nursing reports 2 falls yesterday when patient tried getting out of bed. Physical Exam Vital signs: Last Vital Signs Temp 98.5 F 08/17/18 08:00 Pulse 94 H 08/17/18 08:00 Resp 18 08/17/18 08:00 BP 134/86 08/17/18 08:00 Pulse Ox 97 08/17/18 08:00 Intake & Output 08/15/18 08/16/18 08/17/18 08/18/18 06:59 06:59 06:59 06:59 Intake Total 1440 / 1440 1320 / 1320 2460 / 2460 Output Total 400 / 400 2750 / 2750 Balance 1440 / 1440 920 / 920 -290 / -290 Weight 59 kg 57.4 kg 56.3 kg Narrative: GENERAL: Awake and alert. No acute distress. CHEST: Lungs clear to auscultation bilaterally with no wheezing or rhonchi. No respiratory distress. CARDIOVASCULAR: Regular rate and rhythm. No murmurs ABDOMEN: Soft, nontender, nondistended. EXTREMITIES: No cyanosis or edema. Alert awake and oriented x3, muscle strength 3/5 in lower extremities, 4/5 upper extremities Results Labs CBC & Chem 7: 08/15/18 06:17 08/17/18 05:33 Labs: Microbiology 08/14/18 10:13 Lumbar Puncture Gram Stain - Final 08/14/18 10:13 Lumbar Puncture CSF Culture - Final No growth in 72 hours Assessment and Plan Plan 48 yo F with h/o alcohol abuse, presenting with weakness/fatigue, paraesthesias. Found to have symtomatic anemia and peripheral neuropathy. Symptomatic anemia-w/up in keeping with iron deficiency anemia. likely may be due to occult GI bleeding.s/p prbc transfusion. GI was on board, EGD and colonoscopy done. EGD showed esophagitis, gastritis and superficial ulceration. Colonoscopy showed hemorrhoids and polyps. No NSAIDs. GI signed off. Continue Protonix. Started Ferrous sulfate 325mg daily will need to f/up with GI in 3 months for repeat EGD. Peripheral neuropathy with weakness-? Alcohol induced. MRI of the brain, cervical and thoracic spine done, unremarkable. Multiple labs negative so far. Status post workup including LP negative labs so far. Neurology giving a trial of IVIG for possible CIDP . Patient denies any headache. no change in vision. H/o alcohol abuse--no features to suggest withdrawal presently. continue prn CIWA protocol. h/o HTN-BP within acceptable limits. DVT prophylaxis: Contraindicated, avoid with anemia. DC plan DC when improves and cleared by neuro Progress Note: Quality VTE Deep Vein Thrombosis/Pulmonary Embolism Present on Admission: No
[2018-08-17 19:52] LABS: Ceruloplasmin 30 mg/dL (18-53)
[2018-08-17] MEDS: Sodium Chlor 0.9% Inj 500 ML IV.SIG SCH (22:15)
[2018-08-17] MEDS: IVIG (Immune Globulin) Inj 25 GM in Syringe/Bag 1 EACH IV.SIG SCH (23:38)
[2018-08-18] MEDS: LORazepam 1 MG Tablet PO PRN ×3 (00:22→23:10)
--- NOTE | 2018-08-18 07:02 | IR ---
EXAM DATE: 08/14/2018 10:50 AM EST AGE/SEX: 48 years / Female INDICATIONS: Patient presents with worsening generalized weakness, fatigue, and bilateral upper and lower extremity weakness and numbness. Here for lumbar puncture. CLINICAL DATA: This is the patient's initial encounter. Patient reports that signs and symptoms have been present for 2 months and indicates a pain score of 7/10. MEDICAL/SURGICAL HISTORY: Hypertension. . Orthopedic surgery COMPARISON: No prior exams available for comparison. FLUORO TIME (min): .41 IMAGE SERIES: 2 ACCESS SITE: L3-4 LUMBAR PUNCTURE TIME: 10:13 hours FLUID: Total volume of 6 cc of clear fluid was removed. Fluid was sent to lab for ordered studies. PROCEDURE: 1. Fluoroscopic guided lumbar puncture. The risks, benefits and alternatives to the procedure were explained and verbal and written consent w as obtained. The site was prepped in sterile fashion. Full sterile technique was used, including ca p, mask, sterile gloves and gown and a large sterile sheet. Hand hygiene and 2% chlorhexidine and/or betadine/alcohol prep was utilized per protocol for cutaneous antisepsis. The skin and subcutaneous tissues were infiltrated with local anesthetic solution. With fluoroscopic guidance the lumbar thecal sac was punctured at the level above. The fluid describ ed above was removed without difficulty. The patient tolerated the procedure well and there were no complications. CONCLUSION: 1. Uncomplicated fluoroscopically guided lumbar puncture. Electronically signed by: Reilly Herrera MD 08/18/2018 7:01 AM EST
--- NOTE | 2018-08-18 07:46 | P.PNNEU ---
Subjective Active Medications: Active Medications Cyanocobalamin (Vitamin B12) 100 mcg PO DAILY [facility] Last Admin: 08/17/18 08:22 Dose: 100 mcg Diphenhydramine HCl (Benadryl) 25 mg PO Q24H [facility] Stop: 08/22/18 06:00 Last Admin: 08/17/18 20:32 Dose: 25 mg Diphenhydramine HCl (Benadryl Inj) 50 mg IV.PUSH PRN PRN PRN Reason: ALLERGIC REACTION Stop: 08/22/18 19:17 Epinephrine HCl (Epinephrine (1:1000) Inj) 0.3 mg OTHER Q10M PRN PRN Reason: Anaphylactic Reaction Stop: 08/22/18 19:17 Escitalopram Oxalate (Lexapro) 10 mg PO DAILY [facility] Last Admin: 08/17/18 08:22 Dose: 10 mg Ferrous Sulfate (Ferosul) 325 mg PO DAILY [facility] Flumazenil (Romazecon Inj) 0.2 mg IV.PUSH Q1M PRN PRN Reason: OVERSEDATION Haloperidol Lactate (Haldol Inj) 1 mg IV.PUSH Q15M PRN PRN Reason: for severe agitation Heparin Sodium (Porcine) (Heparin Inj) 5,000 units SQ Q12HR [facility] Last Admin: 08/17/18 20:33 Dose: Not Given Immune Globulin 25 gm/ (Miscellaneous Medication) 250 mls @ 31.25 mls/hr IV.SIG Q24HR [facility] Stop: 08/22/18 06:00 Last Infusion: 08/18/18 02:33 Dose: Infused Dextrose (D5w Inj) 500 mls @ 30 mls/hr OTHER Q24H [facility] Stop: 08/22/18 06:00 Last Infusion: 08/18/18 02:37 Dose: 30 mls/hr Sodium Chloride (Ns Inj) 500 mls @ 500 mls/hr IV.SIG Q24H [facility] Stop: 08/22/18 06:00 Last Infusion: 08/17/18 23:15 Dose: Infused Lorazepam (Ativan) 1 mg PO Q4H PRN PRN Reason: for CIWA 8-10 Last Admin: 08/18/18 00:22 Dose: 1 mg Lorazepam (Ativan) 2 mg PO Q2H PRN PRN Reason: for CIWA 11-14 Lorazepam (Ativan Inj) 2 mg IV.PUSH Q2H PRN PRN Reason: for CIWA 11-14 Lorazepam (Ativan Inj) 2 mg IV.PUSH Q1H PRN PRN Reason: for CIWA 15-20 Lorazepam (Ativan Inj) 2 mg IV.PUSH Q15M PRN PRN Reason: for CIWA > 20 Lorazepam (Ativan Inj) 1 mg IV.PUSH Q4H PRN PRN Reason: for CIWA 8-10 Pantoprazole Sodium (Protonix) 40 mg PO BID [facility] Last Admin: 08/17/18 20:32 Dose: 40 mg Potassium Chloride (K-Dur) 40 meq PO DAILY [facility] Last Admin: 08/17/18 08:22 Dose: 40 meq Sodium Chloride (Ns Flush) 2 ml IV.FLUSH BID [facility] Last Admin: 08/17/18 20:33 Dose: 2 ml Sodium Chloride (Ns Flush) 2 ml IV.FLUSH PRN PRN PRN Reason: FLUSH AFTER USING IV ACCESS Thiamine HCl (Vitamin B1) 100 mg PO BID [facility] Last Admin: 08/17/18 20:32 Dose: 100 mg Allergies/Adverse Reactions: Allergies Allergy/AdvReac Type Severity Reaction Status Date / Time acetaminophen Allergy Severe Rash Verified 08/12/18 21:13 doxycycline Allergy Severe Rash Verified 08/12/18 21:13 minocycline Allergy Severe Rash Verified 08/12/18 21:13 morphine Allergy Severe HIVES Verified 08/12/18 21:13 ondansetron Allergy Severe HIVES Verified 08/12/18 21:13 penicillin G Allergy Severe Rash Verified 08/12/18 21:13 propoxyphene Allergy Severe Rash Verified 08/12/18 21:13 tigecycline Allergy Severe Rash Verified 08/12/18 21:13 Sulfa (Sulfonamide Allergy Unknown Nausea/Vomi Verified 08/12/18 21:13 Antibiotics) ting gadobutrol [From Gadavist] Allergy Hives Verified 08/13/18 12:20 Physical Exam Vital signs: Vital Signs 08/17/18 08:00 08/17/18 12:00 08/17/18 16:00 Temperature 98.5 F 98.5 F 98.8 F Pulse Rate 94 H 91 H 88 Respiratory Rate 18 18 18 Blood Pressure 134/86 134/71 135/86 Pulse Oximetry 97 98 99 08/17/18 20:00 08/17/18 23:38 08/18/18 00:00 Temperature 97.4 F L 98.3 F Pulse Rate 90 90 79 Respiratory Rate 20 20 18 Blood Pressure 151/93 H 150/93 H 127/77 Pulse Oximetry 99 99 08/18/18 00:15 08/18/18 04:00 Temperature 98.3 F Pulse Rate 87 77 Respiratory Rate 20 18 Blood Pressure 135/88 136/81 Pulse Oximetry 100 Intake & Output 08/17/18 08/18/18 08/18/18 18:59 06:59 18:59 Intake Total 1180 / 1180 1660 / 1660 Output Total 1400 / 1400 800 / 800 Balance -220 / -220 860 / 860 Weight 56.3 kg Intake: IV 840 / 840 Privigen Inj 25 GM In Bag/ 250 / 250 Syringe 1 EACH @ 31.25 mls/hr IV.SIG Q24HR [facility] Rx#:[id number] NS Inj 500 ML @ 500 mls/hr IV. 500 / 500 SIG Q24H [facility] Rx#:[id number] Inj 500 ML @ 30 mls/hr 90 / 90 OTHER Q24H [facility] Rx#:[id number] Oral 1180 / 1180 820 / 820 Output: Urine 1400 / 1400 800 / 800 Other: # Urine Diapers 1 Date of Last Bowel Movement 08/15/18 # Bowel Movements 1 Narrative: still weak bilat finger ext and trouble walking sp 2 rx ivig Objective Laboratory Results - last 24 hr 08/15/18 08/15/18 06:17 11:25 Ceruloplasmin 30 Thiamine 242 H Methylmalonic Acid 0.22 Microbiology 08/14/18 10:13 Gram Stain - Final Lumbar Puncture CSF Culture - Final No growth in 72 hours Review/Management - Review/Management Plan: imp mri b c and t spine nl labs neg so far check cpk labs order LP ordered may have gbs 08/16/18 no change still dificulty walking and bilat finger ext very weak cpk and lp neg nl protein but 30 wbc lymph needs emg and will try ivig for possible cidp as she tells me that she has had trouble walking for 10 yrs now PT sq hep 08/18/18 no improvement yet sp 2 rx ivig emg should be done today oob PT check mg labs unlikely gait and finger ext weak hep b pos igm
[2018-08-18] MEDS: Heparin - SQ 10,000 UNITS/ML Vial SQ SCH ×2 (10:05→20:44)
[2018-08-18] MEDS: Ferrous Sulfate 325 MG Tablet PO SCH (10:05)
[2018-08-18] MEDS: Escitalopram 10 MG Tablet PO SCH (10:06)
[2018-08-18 10:15] LABS: Calcium 9.3 mg/dL (8.5-10.1); Carbon Dioxide 24.8 meq/L (21.0-32.0)
--- NOTE | 2018-08-18 10:36 | P.PNIM ---
Subjective Interval history: no new complaints. still remains weak. Physical Exam Vital signs: Last Vital Signs Temp 98.7 F 08/18/18 08:00 Pulse 86 08/18/18 08:00 Resp 16 08/18/18 08:00 BP 137/82 08/18/18 08:00 Pulse Ox 99 08/18/18 08:00 Intake & Output 08/16/18 08/17/18 08/18/18 08/19/18 06:59 06:59 06:59 06:59 Intake Total 1320 / 1320 2460 / 2460 2840 / 2840 Output Total 400 / 400 2750 / 2750 2200 / 2200 Balance 920 / 920 -290 / -290 640 / 640 Weight 57.4 kg 56.3 kg 56.3 kg Narrative: GENERAL:middle aged woman, appears older than stated age,not in acute distress. HEENT:not pale,anicteric,stella, no nystagmus. CARDIOVASCULAR: Regular rate and rhythm without murmurs, gallops, or rubs. RESPIRATORY: Clear to auscultation. Breath sounds equal bilaterally. No wheezes , rales, or rhonchi. GASTROINTESTINAL: Abdomen soft, non-tender, nondistended. Normal active bowel sounds MUSCULOSKELETAL: Extremities without clubbing, cyanosis, or edema. Muscle strength 4/5 UE, 3/5 in lower extremities. NEURO: Alert & Oriented x4 to person, place, time, situation. Moves all ext x4 Results Labs CBC & Chem 7: 08/15/18 06:17 08/18/18 08:47 Labs: Microbiology 08/14/18 10:13 Lumbar Puncture Gram Stain - Final 08/14/18 10:13 Lumbar Puncture CSF Culture - Final No growth in 72 hours Imaging Imaging: Impressions Lumbar Puncture Fluoroscopy 08/14/18 07:21 CONCLUSION: 1. Uncomplicated fluoroscopically guided lumbar puncture. Assessment and Plan Plan 48 yo F with h/o alcohol abuse, presenting with weakness/fatigue, paraesthesias. Found to have symtomatic anemia and peripheral neuropathy. Symptomatic anemia-w/up in keeping with iron deficiency anemia. likely may be due to occult GI bleeding.s/p prbc transfusion. GI was on board, EGD and colonoscopy done. EGD showed esophagitis, gastritis and superficial ulceration. Colonoscopy showed hemorrhoids and polyps. No NSAIDs. GI signed off. Continue Protonix. Started Ferrous sulfate 325mg daily will need to f/up with GI in 3 months for repeat EGD. Peripheral neuropathy with weakness-? Alcohol induced. MRI of the brain, cervical and thoracic spine done, unremarkable. Multiple labs negative so far. Status post workup including LP negative labs so far. Neurology giving a trial of IVIG for possible CIDP . No headache or change in vision. H/o alcohol abuse--no features to suggest withdrawal presently. continue prn CIWA protocol. h/o HTN-BP within acceptable limits. DVT prophylaxis: Contraindicated, avoid with anemia. DC plan DC when improves and cleared by neuro 08/18--no change in current plan. Progress Note: Quality VTE Deep Vein Thrombosis/Pulmonary Embolism Present on Admission: No
[2018-08-18 11:03] LABS: Alpha 1 Antitrypsin 170 mg/dL (100 - 190); Smooth Muscle Total Auto Abs Negative (Negative)
[2018-08-18] MEDS: Sodium Chlor 0.9% Inj 500 ML IV.SIG SCH (23:13)
[2018-08-18 23:53] LABS: IgA Serum 182 mg/dL (81-463); Tissue Transglutaminase Ab IgG ND U/mL (())
[2018-08-19] MEDS: LORazepam 1 MG Tablet PO PRN ×4 (05:43→22:31)
[2018-08-19 06:52] LABS: Calcium 9.1 mg/dL (8.5-10.1); Carbon Dioxide 23.8 meq/L (21.0-32.0); Potassium 3.9 meq/L (3.5-5.1)
[2018-08-19] MEDS: Heparin - SQ 10,000 UNITS/ML Vial SQ SCH ×2 (08:24→21:00)
[2018-08-19] MEDS: Ferrous Sulfate 325 MG Tablet PO SCH (08:24)
[2018-08-19] MEDS: Escitalopram 10 MG Tablet PO SCH (08:24)
--- NOTE | 2018-08-19 11:21 | P.PN ---
Subjective Interval history: In bed no new motor or sensory deficit. Still feels very weak. No fever or chills. Is no headaches. Says feels a little bit improving. Asking for anxiety medications Physical Exam Vital signs: Vital Signs 08/18/18 11:55 08/18/18 12:00 08/18/18 16:00 Temperature 98.6 F 98.8 F Pulse Rate 96 H 92 H Respiratory Rate 17 17 Blood Pressure 155/93 H 148/88 H Pulse Oximetry 95 100 97 08/19/18 00:00 08/19/18 04:00 08/19/18 08:00 Temperature 98.7 F 99.2 F 98.5 F Pulse Rate 90 94 H 80 Respiratory Rate 16 16 16 Blood Pressure 121/77 138/81 130/89 Pulse Oximetry 97 98 96 08/19/18 10:57 Temperature Pulse Rate Respiratory Rate Blood Pressure Pulse Oximetry 96 Intake & Output 08/18/18 08/19/18 08/19/18 18:59 06:59 18:59 Intake Total 410 / 410 1500 / 1500 Balance 410 / 410 1500 / 1500 Intake: IV 410 / 410 1500 / 1500 NS Inj 500 ML @ 500 mls/hr IV. 500 / 500 SIG Q24H [facility] Rx#:[id number] D5W Inj 500 ML @ 30 mls/hr 410 / 410 1000 / 1000 OTHER Q24H [facility] Rx#:[id number] Other: # Voids 3 Date of Last Bowel Movement 08/15/18 # Bowel Movements 1 Narrative: GENERAL: Pleasant middle aged woman, appears older than stated age, not in acute distress. CARDIOVASCULAR: Regular rate and rhythm without murmurs, gallops, or rubs. RESPIRATORY: Clear to auscultation. Breath sounds equal bilaterally. No wheezes , rales, or rhonchi. GASTROINTESTINAL: Abdomen soft, non-tender, nondistended. Normal active bowel sounds MUSCULOSKELETAL: Extremities without clubbing, cyanosis, or edema. Muscle strength 4/5 UE, 3/5 in lower extremities. NEURO: Alert & Oriented x4 to person, place, time, situation. Moves all ext x4 Results - Labs CBC & Chem 7: 08/15/18 06:17 08/19/18 05:43 Laboratory Results - last 24 hr 08/15/18 08/19/18 11:25 05:43 Sodium 137 Potassium 3.9 Chloride 105 Carbon Dioxide 23.8 Anion Gap 8 BUN 15 Creatinine 0.81 Estimated GFR 76 L Random Glucose 91 Calcium 9.1 IgA 182 Tiss Transglutamin IgG ND Assessment and Plan - Assessment (1) Peripheral neuropathy Code(s): G62.9 - Polyneuropathy, unspecified Status: Acute (2) Symptomatic anemia Code(s): D64.9 - Anemia, unspecified Status: Acute - Plan 48 yo F with h/o alcohol abuse, presenting with weakness/fatigue, paraesthesias. Found to have symtomatic anemia and peripheral neuropathy. Symptomatic anemia-work up in keeping with iron deficiency anemia. likely may be due to occult GI bleeding.s/p prbc transfusion. GI was on board, EGD and colonoscopy done. EGD showed esophagitis, gastritis and superficial ulceration. Colonoscopy showed hemorrhoids and polyps. No NSAIDs. GI signed off. Continue Protonix, switch to oral. Peripheral neuropathy with weakness-? Alcohol induced. MRI of the brain, cervical and thoracic spine done, unremarkable. Neurology is following. Status post workup including LP. Awaiting neurology input. Rule out GBS. Patient denies any headache. no change in vision. IVIG treatment per neuro LP no sighs of infection Positive hep B IgM Vitamin B12 into low normal side will give supplement EMG pending H/o alcohol abuse--no features to suggest withdrawal presently. continue prn CIWA protocol. Continue multivitamins, thiamine and folate h/o HTN-BP within acceptable limits. DVT prophylaxis: Contraindicated, avoid with anemia. DC plan DC when improves and cleared by neuro (1) Peripheral neuropathy Qualifiers: Peripheral neuropathy type: polyneuropathy, unspecified Qualified Code(s): G62.9 - Polyneuropathy, unspecified
[2018-08-19 12:20] LABS: Methylmalonic Acid 0.19 nmol/mL (<=0.40)
[2018-08-19 19:53] LABS: Lyme Ab 18KD IgG WB NON-REACTIVE; Lyme Ab 23KD IgG WB NON-REACTIVE; Lyme Ab 23KD IgM WB NON-REACTIVE; Lyme Ab 28KD IgG WB NON-REACTIVE; Lyme Ab 30KD IgG WB NON-REACTIVE; Lyme Ab 39KD IgG WB NON-REACTIVE; Lyme Ab 39KD IgM WB NON-REACTIVE; Lyme Ab 41KD IgG WB NON-REACTIVE; Lyme Ab 41KD IgM WB REACTIVE; Lyme Ab 45KD IgG WB NON-REACTIVE; Lyme Ab 58KD IgG WB NON-REACTIVE; Lyme Ab 66KD IgG WB NON-REACTIVE; Lyme Ab 93KD IgG WB NON-REACTIVE
[2018-08-19] MEDS: Sodium Chlor 0.9% Inj 500 ML IV.SIG SCH ×2 (21:02→22:28)
[2018-08-20] MEDS: IVIG (Immune Globulin) Inj 25 GM in Syringe/Bag 1 EACH IV.SIG SCH ×2 (00:03→21:32)
[2018-08-20] MEDS: LORazepam 1 MG Tablet PO PRN (06:07)
[2018-08-20 07:11] LABS: Bilirubin,Urine Negative (Negative); Clarity,Urine Clear (Clear); Color,Urine Straw (Yellw/Straw); Glucose,Urine (UA) Negative (Negative); Leukocyte Esterase,Urine Negative (Negative); Mucus,Urine Few /lpf (Occasional); Nitrite,Urine Negative (Negative); Specific Gravity,Urine 1.008 (1.002-1.035); Squamous Epithelial Cell,Urine 1 /hpf (0-5)
[2018-08-20 07:36] LABS: Carbon Dioxide 22.2 meq/L (21.0-32.0); Potassium 4.3 meq/L (3.5-5.1)
--- NOTE | 2018-08-20 08:07 | P.PNNEU ---
Subjective Subjective Comments: nv this am no maynard Active Medications: Active Medications Cyanocobalamin (Vitamin B12) 100 mcg PO DAILY [facility] Last Admin: 08/19/18 08:24 Dose: 100 mcg Diphenhydramine HCl (Benadryl) 25 mg PO Q24H [facility] Stop: 08/22/18 06:00 Last Admin: 08/19/18 21:00 Dose: 25 mg Diphenhydramine HCl (Benadryl Inj) 50 mg IV.PUSH PRN PRN PRN Reason: ALLERGIC REACTION Stop: 08/22/18 19:17 Epinephrine HCl (Epinephrine (1:1000) Inj) 0.3 mg OTHER Q10M PRN PRN Reason: Anaphylactic Reaction Stop: 08/22/18 19:17 Escitalopram Oxalate (Lexapro) 10 mg PO DAILY [facility] Last Admin: 08/19/18 08:24 Dose: 10 mg Ferrous Sulfate (Ferosul) 325 mg PO DAILY [facility] Last Admin: 08/19/18 08:24 Dose: 325 mg Flumazenil (Romazecon Inj) 0.2 mg IV.PUSH Q1M PRN PRN Reason: OVERSEDATION Haloperidol Lactate (Haldol Inj) 1 mg IV.PUSH Q15M PRN PRN Reason: for severe agitation Heparin Sodium (Porcine) (Heparin Inj) 5,000 units SQ Q12HR [facility] Last Admin: 08/19/18 21:00 Dose: 5,000 units Sodium Chloride (Ns Inj) 500 mls @ 500 mls/hr IV.SIG Q24H [facility] Stop: 08/22/18 06:00 Last Infusion: 08/19/18 23:28 Dose: Infused Immune Globulin 25 gm/ (Miscellaneous Medication) 250 mls @ 31.25 mls/hr IV.SIG Q24H [facility] Stop: 08/22/18 06:00 Last Infusion: 08/20/18 06:17 Dose: Infused Dextrose (D5w Inj) 500 mls @ 30 mls/hr OTHER Q24H [facility] Stop: 08/22/18 06:00 Last Infusion: 08/20/18 00:19 Dose: 0 mls/hr Lorazepam (Ativan) 1 mg PO Q4H PRN PRN Reason: for CIWA 8-10 Last Admin: 08/20/18 06:07 Dose: 1 mg Lorazepam (Ativan) 2 mg PO Q2H PRN PRN Reason: for CIWA 11-14 Lorazepam (Ativan Inj) 2 mg IV.PUSH Q2H PRN PRN Reason: for CIWA 11-14 Lorazepam (Ativan Inj) 2 mg IV.PUSH Q1H PRN PRN Reason: for CIWA 15-20 Lorazepam (Ativan Inj) 2 mg IV.PUSH Q15M PRN PRN Reason: for CIWA > 20 Lorazepam (Ativan Inj) 1 mg IV.PUSH Q4H PRN PRN Reason: for CIWA 8-10 Pantoprazole Sodium (Protonix) 40 mg PO BID [facility] Last Admin: 08/19/18 21:00 Dose: 40 mg Potassium Chloride (K-Dur) 40 meq PO DAILY [facility] Last Admin: 08/19/18 08:24 Dose: 40 meq Sodium Chloride (Ns Flush) 2 ml IV.FLUSH BID [facility] Last Admin: 08/19/18 21:00 Dose: Not Given Sodium Chloride (Ns Flush) 2 ml IV.FLUSH PRN PRN PRN Reason: FLUSH AFTER USING IV ACCESS Thiamine HCl (Vitamin B1) 100 mg PO BID [facility] Last Admin: 08/19/18 21:00 Dose: 100 mg Allergies/Adverse Reactions: Allergies Allergy/AdvReac Type Severity Reaction Status Date / Time acetaminophen Allergy Severe Rash Verified 08/12/18 21:13 doxycycline Allergy Severe Rash Verified 08/12/18 21:13 minocycline Allergy Severe Rash Verified 08/12/18 21:13 morphine Allergy Severe HIVES Verified 08/12/18 21:13 ondansetron Allergy Severe HIVES Verified 08/12/18 21:13 penicillin G Allergy Severe Rash Verified 08/12/18 21:13 propoxyphene Allergy Severe Rash Verified 08/12/18 21:13 tigecycline Allergy Severe Rash Verified 08/12/18 21:13 Sulfa (Sulfonamide Allergy Unknown Nausea/Vomi Verified 08/12/18 21:13 Antibiotics) ting gadobutrol [From Gadavist] Allergy Hives Verified 08/13/18 12:20 Physical Exam Vital signs: Vital Signs 08/19/18 10:57 08/19/18 12:00 08/19/18 16:00 Temperature 97.1 F L 99.4 F Pulse Rate 107 H 114 H Respiratory Rate 17 17 Blood Pressure 129/78 120/86 Pulse Oximetry 96 98 96 08/20/18 00:00 11/14/18 00:03 08/20/18 00:27 Temperature 97.9 F 98.9 F Pulse Rate 98 H 97 H 95 H Respiratory Rate 18 18 16 Blood Pressure 118/65 118/65 115/74 Pulse Oximetry 97 08/20/18 00:44 08/20/18 01:39 08/20/18 04:00 Temperature 98.9 F 98.9 F 97.9 F Pulse Rate 88 94 H 99 H Respiratory Rate 18 Blood Pressure 105/65 106/74 113/88 Pulse Oximetry 98 98 96 Intake & Output 08/19/18 08/20/18 08/20/18 18:59 06:59 18:59 Intake Total 1500 / 1500 750 / 750 Balance 1500 / 1500 750 / 750 Weight 56.2 kg Intake: IV 1500 / 1500 750 / 750 Privigen Inj 25 GM In Bag/ 250 / 250 Syringe 1 EACH @ 31.25 mls/hr IV.SIG Q24H [facility] Rx#:[id number] NS Inj 500 ML @ 500 mls/hr IV. 500 / 500 500 / 500 SIG Q24H [facility] Rx#:[id number] D5W Inj 500 ML @ 30 mls/hr 1000 / 1000 OTHER Q24H [facility] Rx#:[id number] Other: # Voids 3 2 Date of Last Bowel Movement 08/19/18 Narrative: still very weak finger ext tired after n/v Objective Laboratory Results - last 24 hr 08/14/18 08/15/18 08/20/18 09:34 06:17 06:00 Sodium Potassium Chloride Carbon Dioxide Anion Gap BUN Creatinine Estimated GFR Random Glucose Calcium Thiamine 202 H Methylmalonic Acid 0.19 Urine Color Straw Urine Clarity Clear Urine pH 6.0 Ur Specific [place] 1.008 Urine Protein Negative Urine Glucose (UA) Negative Urine Ketones Negative Urine Occult Blood Negative Urine Nitrate Negative Urine Bilirubin Negative Urine Urobilinogen Less than 2 Ur Leukocyte Esterase Negative Urine WBC 1 Ur Squamous Epith Cells 1 Urine Mucus Few H Micro UA Comment Culture not ind Ur Microscopic Review Not Reportable Urine Culture Comments Culture not ind Lyme IgG (Western Blot) Negative Lyme IgG 18 kDa Band Non-reactive Lyme IgG 23 kDa Band Non-reactive Lyme IgG 28 kDa Band Non-reactive Lyme IgG 30 kDa Band Non-reactive Lyme IgG 39 kDa Band Non-reactive Lyme IgG 41 kDa Band Non-reactive Lyme IgG 45 kDa Band Non-reactive Lyme IgG 58 kDa Band Non-reactive Lyme IgG 66 kDa Band Non-reactive Lyme IgG 93 kDa Band Non-reactive Lyme IgM (Western Blot) Negative Lyme IgM 23 kDa Band Non-reactive Lyme IgM 39 kDa Band Non-reactive Lyme IgM 41 kDa Band Reactive 08/20/18 06:35 Sodium 137 Potassium 4.3 Chloride 105 Carbon Dioxide 22.2 Anion Gap 10 BUN 16 Creatinine 0.77 Estimated GFR 80 L Random Glucose 89 Calcium 9.0 Thiamine Methylmalonic Acid Urine Color Urine Clarity Urine pH Ur Specific [place] Urine Protein Urine Glucose (UA) Urine Ketones Urine Occult Blood Urine Nitrate Urine Bilirubin Urine Urobilinogen Ur Leukocyte Esterase Urine WBC Ur Squamous Epith Cells Urine Mucus Micro UA Comment Ur Microscopic Review Urine Culture Comments Lyme IgG (Western Blot) Lyme IgG 18 kDa Band Lyme IgG 23 kDa Band Lyme IgG 28 kDa Band Lyme IgG 30 kDa Band Lyme IgG 39 kDa Band Lyme IgG 41 kDa Band Lyme IgG 45 kDa Band Lyme IgG 58 kDa Band Lyme IgG 66 kDa Band Lyme IgG 93 kDa Band Lyme IgM (Western Blot) Lyme IgM 23 kDa Band Lyme IgM 39 kDa Band Lyme IgM 41 kDa Band Review/Management - Review/Management Plan: imp mri b c and t spine nl labs neg so far check cpk labs order LP ordered may have gbs 08/16/18 no change still dificulty walking and bilat finger ext very weak cpk and lp neg nl protein but 30 wbc lymph needs emg and will try ivig for possible cidp as she tells me that she has had trouble walking for 10 yrs now PT sq hep 08/18/18 no improvement yet sp 2 rx ivig emg should be done today oob PT check mg labs unlikely gait and finger ext weak hep b pos igm 08/20/18 today should be last of 5 iv ig rx labs ok mg lab pend doubt though i dw PT walks well with minimal assist on walker emg still pend? i contacted rehab today ow neurowise after last ivig and when i get emg may be able to dc ? tomorrow
[2018-08-20] MEDS: Ferrous Sulfate 325 MG Tablet PO SCH (08:11)
[2018-08-20] MEDS: Heparin - SQ 10,000 UNITS/ML Vial SQ SCH ×2 (08:11→20:19)
[2018-08-20] MEDS: Escitalopram 10 MG Tablet PO SCH (08:11)
--- NOTE | 2018-08-20 10:33 | P.DS ---
Date of admission: 08/12/18 23:56 Primary care physician: Lauren Aguayo MD Brief History from admission: 48-year-old female with a history of hypertension, alcohol abuse who presents to the ER with a 2-month history of progressively worsening generalized weakness , fatigue, as well as bilateral upper and lower extremity numbness, weakness, paresthesias. She says she is now is to the point where she cannot walk without assistance, stumbles easily. Patient says she has been drinking to control the pain, however family thought it best for her to come in to get her fatigue and peripheral paresthesias addressed. Patient is found to be anemic on labs. She denies any bright red blood per rectum, denies any hematemesis, melena. She is no longer having periods. Denies any fevers, chills, chest pain , shortness of breath. He reports chronic vague abdominal discomfort which she believes is secondary to constipation. Patient initially says she does not drink that much, however says she drinks to treat the paresthesias in her extremities. Alcohol level of 206. DS: Diagnosis - Discharge Diagnosis (1) Peripheral neuropathy Status: Acute (2) Symptomatic anemia Status: Acute DS: Medications - Discharge Medications Prescriptions: cyanocobalamin (vitamin B-12) [Vitamin B-12] 100 mcg PO DAILY #30 tab escitalopram oxalate 10 mg PO DAILY #30 tab ferrous sulfate [FeroSul] 325 mg PO DAILY #30 tab pantoprazole [Protonix] 40 mg PO DAILY #30 tab thiamine HCl (vitamin B1) 100 mg PO BID #30 tab DS: Summary Hospital Course: 48 yo F with h/o alcohol abuse, presenting with weakness/fatigue, paraesthesias. Found to have symtomatic anemia and peripheral neuropathy. Symptomatic anemia-work up in keeping with iron deficiency anemia. likely may be due to occult GI bleeding.s/p prbc transfusion. GI was on board, EGD and colonoscopy done. EGD showed esophagitis, gastritis and superficial ulceration. Colonoscopy showed hemorrhoids and polyps. No NSAIDs. GI signed off. Continue Protonix, switch to oral. Peripheral neuropathy with weakness-? Alcohol induced. MRI of the brain, cervical and thoracic spine done, unremarkable. Neurology is following. Status post workup including LP. Awaiting neurology input. Rule out GBS. Patient denies any headache. no change in vision. IVIG treatment per neuro LP no sighs of infection Positive hep B IgM Vitamin B12 into low normal side will give supplement EMG pending H/o alcohol abuse--no features to suggest withdrawal presently. continue prn CIWA protocol. Continue multivitamins, thiamine and folate h/o HTN-BP within acceptable limits. DVT prophylaxis: Contraindicated, avoid with anemia. Patient improved. Finished 5 days of IVIG. Patient improved discharge home in stable condition to follow-up with PCP and consultants as outpatient. - Time Spent with Patient Total time spent providing and/or coordinating discharge services: Greater than 30 minutes - Quality: VTE Deep Vein Thrombosis/Pulmonary Embolism Present on Admission: No Exam Vital signs: Vital Signs 08/19/18 10:57 08/19/18 12:00 08/19/18 16:00 Temperature 97.1 F L 99.4 F Pulse Rate 107 H 114 H Respiratory Rate 17 17 Blood Pressure 129/78 120/86 Pulse Oximetry 96 98 96 08/20/18 00:00 08/20/18 00:03 08/20/18 00:27 Temperature 97.9 F 98.9 F Pulse Rate 98 H 97 H 95 H Respiratory Rate 18 18 16 Blood Pressure 118/65 118/65 115/74 Pulse Oximetry 97 08/20/18 00:44 08/20/18 01:39 08/20/18 04:00 Temperature 98.9 F 98.9 F 97.9 F Pulse Rate 88 94 H 99 H Respiratory Rate 16 18 18 Blood Pressure 105/65 106/74 113/88 Pulse Oximetry 98 98 96 08/20/18 08:00 Temperature 98.5 F Pulse Rate 99 H Respiratory Rate 17 Blood Pressure 119/86 Pulse Oximetry 96 Intake & Output 08/19/18 08/20/18 08/20/18 18:59 06:59 18:59 Intake Total 1500 / 1500 750 / 750 Balance 1500 / 1500 750 / 750 Weight 56.2 kg Intake: IV 1500 / 1500 750 / 750 Privigen Inj 25 GM In Bag/ 250 / 250 Syringe 1 EACH @ 31.25 mls/hr IV.SIG Q24H [facility] Rx#:[id number] NS Inj 500 ML @ 500 mls/hr IV. 500 / 500 500 / 500 SIG Q24H [facility] Rx#:[id number] D5W Inj 500 ML @ 30 mls/hr 1000 / 1000 OTHER Q24H [facility] Rx#:[id number] Other: # Voids 3 2 Date of Last Bowel Movement 08/19/18 Narrative: GENERAL: Pleasant middle aged woman, appears older than stated age, not in acute distress. CARDIOVASCULAR: Regular rate and rhythm without murmurs, gallops, or rubs. RESPIRATORY: Clear to auscultation. Breath sounds equal bilaterally. No wheezes , rales, or rhonchi. GASTROINTESTINAL: Abdomen soft, non-tender, nondistended. Normal active bowel sounds MUSCULOSKELETAL: Extremities without clubbing, cyanosis, or edema. Muscle strength 4/5 UE, 3/5 in lower extremities. NEURO: Alert & Oriented x4 to person, place, time, situation. Moves all ext x4 Results Procedures completed during hospitalization: No procedures Completed studies during hospitalization: Pending at discharge 08/14/18 08:41 Surgical [PTH] Routine 08/15/18 11:39 Surgical [PTH] Routine Labs on day of discharge: Labs from last 24 hours 08/20/18 08/20/18 08/15/18 06:35 06:00 06:17 Sodium 137 Potassium 4.3 Chloride 105 Carbon Dioxide 22.2 Anion Gap 10 BUN 16 Creatinine 0.77 Estimated GFR 80 L Random Glucose 89 Calcium 9.0 Thiamine 202 H Methylmalonic Acid 0.19 Urine Color Straw Urine Clarity Clear Urine pH 6.0 Ur Specific [place] 1.008 Urine Protein Negative Urine Glucose (UA) Negative Urine Ketones Negative Urine Occult Blood Negative Urine Nitrate Negative Urine Bilirubin Negative Urine Urobilinogen Less than 2 Ur Leukocyte Esterase Negative Urine WBC 1 Ur Squamous Epith Cells 1 Urine Mucus Few H Micro UA Comment Culture not ind Ur Microscopic Review Not Reportable Urine Culture Comments Culture not ind Lyme IgG (Western Blot) Lyme IgG 18 kDa Band Lyme IgG 23 kDa Band Lyme IgG 28 kDa Band Lyme IgG 30 kDa Band Lyme IgG 39 kDa Band Lyme IgG 41 kDa Band Lyme IgG 45 kDa Band Lyme IgG 58 kDa Band Lyme IgG 66 kDa Band Lyme IgG 93 kDa Band Lyme IgM (Western Blot) Lyme IgM 23 kDa Band Lyme IgM 39 kDa Band Lyme IgM 41 kDa Band 08/14/18 09:34 Sodium Potassium Chloride Carbon Dioxide Anion Gap BUN Creatinine Estimated GFR Random Glucose Calcium Thiamine Methylmalonic Acid Urine Color Urine Clarity Urine pH Ur Specific [place] Urine Protein Urine Glucose (UA) Urine Ketones Urine Occult Blood Urine Nitrate Urine Bilirubin Urine Urobilinogen Ur Leukocyte Esterase Urine WBC Ur Squamous Epith Cells Urine Mucus Micro UA Comment Ur Microscopic Review Urine Culture Comments Lyme IgG (Western Blot) Negative Lyme IgG 18 kDa Band Non-reactive [place]yme IgG 23 kDa Band Non-reactive Lyme IgG 28 kDa Band Non-reactive Lyme IgG 30 kDa Band Non-reactive Lyme IgG 39 kDa Band Non-reactive Lyme IgG 41 kDa Band Non-reactive Lyme IgG 45 kDa Band Non-reactive Lyme IgG 58 kDa Band Non-reactive Lyme IgG 66 kDa Band Non-reactive Lyme IgG 93 kDa Band Non-reactive Lyme IgM (Western Blot) Negative Lyme IgM 23 kDa Band Non-reactive Lyme IgM 39 kDa Band Non-reactive Lyme IgM 41 kDa Band Reactive - Impressions ITS Impressions Cervical Spine CT 08/12/18 21:45 CONCLUSION: 1. No fracture or subluxation of the cervical spine. 2. Mild degenerative changes at C5/C6. Head CT 08/12/18 21:45 CONCLUSION: Negative noncontrast head CT. . Abdomen/Pelvis CT 08/13/18 00:00 CONCLUSION: 1. Early or mild appendicitis possible in the proper clinical setting. 2. Liver is mild fatty infiltrated. 3. Scattered small benign cysts and tiny nonobstructing stones of each kidney. 4. Small left ovarian cyst, most likely physiologic. 5. Old bilateral rib fractures. No acute bony abnormality seen. Cervical Spine MRI 08/13/18 09:07 CONCLUSION: 1. Degenerative disc disease at C4-5 and C5-6 with resultant moderate central canal narrowing at C5-6 level. 2. Moderate to severe left neural foraminal narrowing secondary to osteophytes at C5-6. 3. No cord signal abnormality or abnormal enhancement/mass. Head MRI 08/13/18 09:07 CONCLUSION: 1. Negative MR Brain with and without contrast. 2. No evidence of acute infarct, hemorrhage, mass or edema. 3. No evidence of enhancing lesions. Thoracic Spine MRI 08/13/18 09:07 CONCLUSION: 1. Multilevel disc desiccation with minimal degenerative disc disease at T7-8. 2. Otherwise, unremarkable MRI examination of the thoracic spine. 3. Specifically, no evidence for abnormal enhancement or mass. Lumbar Puncture Fluoroscopy 08/14/18 07:21 CONCLUSION: 1. Uncomplicated fluoroscopically guided lumbar puncture. Discharge Plan - Discharge Disposition Patient Disposition: 01 Discharge Home - Discharge Condition Condition: Stable - Discharge Order Discharge Orders: Discharge Order (Routine); Ordered 08/21/18 Ordered By: Cindy Yao - Discharge Details Anticipated Discharge Date: 08/21/18 - Physicians Team Primary Care Provider: Lauren Aguayo Attending Provider: Cindy Yao Other Providers: Estefania Varela MD ; Yobani Horn MD ; Rolando Blackburn MD ; Emily Cotto DO
[2018-08-20] MEDS: Sodium Chlor 0.9% Inj 500 ML IV.SIG SCH (20:20)
[2018-08-21 07:19] LABS: Calcium 9.3 mg/dL (8.5-10.1); Carbon Dioxide 23.7 meq/L (21.0-32.0); Potassium 4.2 meq/L (3.5-5.1)
[2018-08-21 08:13] VITALS: TEMP 98.3
[2018-08-21] MEDS: Ferrous Sulfate 325 MG Tablet PO SCH (08:46)
[2018-08-21] MEDS: Heparin - SQ 10,000 UNITS/ML Vial SQ SCH (08:46)
[2018-08-21] MEDS: Escitalopram 10 MG Tablet PO SCH (08:46)
[2018-08-21 17:58] VITALS: BP 126/79; PULSE 97; RESP 18; O2SAT 96
== END 2018-08-21 19:14 | disposition home or self-care (01) ==
LOC: NEPC 20:18 → NEDA 23:56 → NEPFCDU 08-13 00:57 → N04 08-14 18:00
PROVIDERS: ADMIT Hospitalist; ATTEND Hospitalist
PROC: PANENDO (2018-08-14 17:08)
PROC: COLONOS (2018-08-15 09:11)
DX: D72.829 Elevated white blood cell count, unspecified; Z88.2 Allergy status to sulfonamides; Z87.440 Personal history of urinary (tract) infections; Y92.230 Patient room in hospital as the place of occurrence of the external cause; W06.XXXA Fall from bed, initial encounter; F41.9 Anxiety disorder, unspecified; R51 Headache; D62 Acute posthemorrhagic anemia; Y90.7 Blood alcohol level of 200-239 mg/100 ml; D12.4 Benign neoplasm of descending colon; Z88.6 Allergy status to analgesic agent; Z88.1 Allergy status to other antibiotic agents; W01.0XXA Fall on same level from slipping, tripping and stumbling without subsequent striking against object, initial encounter; K64.4 Residual hemorrhoidal skin tags; Z87.11 Personal history of peptic ulcer disease; F10.229 Alcohol dependence with intoxication, unspecified; Z79.899 Other long term (current) drug therapy; G62.9 Polyneuropathy, unspecified; K29.71 Gastritis, unspecified, with bleeding; K20.9 Esophagitis, unspecified; R29.6 Repeated falls; K44.9 Diaphragmatic hernia without obstruction or gangrene; M54.9 Dorsalgia, unspecified; Z83.3 Family history of diabetes mellitus; K64.8 Other hemorrhoids; Z88.5 Allergy status to narcotic agent; K59.00 Constipation, unspecified; Z80.0 Family history of malignant neoplasm of digestive organs; R53.83 Other fatigue; R27.0 Ataxia, unspecified; Z82.3 Family history of stroke; R53.1 Weakness; Z91.81 History of falling; I10 Essential (primary) hypertension